=== PATIENT | female | born 1995 | race Caucasian/White ===

== ENCOUNTER 2017-04-20 11:35 | Outpatient (CLI) | payer BC, SELFPAY ==
[2017-04-20 11:49] VITALS: BMI 36.3
--- NOTE | 2017-04-21 12:28 | OB.TRI.NOTE ---
History of Present Illness Date of Service: 04/20/17 Was patient seen by the physician?: No Reason For Visit: VAGINAL BLEED Date of Service: 04/20/17 Final LOR: 08/31/17 Final LOR Source: US <20 weeks Gestational age: 21 Weeks and 1 Days Home Medications Medication Instructions Recorded Pnv No.122/Iron/Folic Acid 1 each PO DAILY 03/05/17 [ Multi Tablet] Sertraline HCl [Zoloft] 50 mg PO DAILY 03/05/17 Vitamin D3 4,000 units 04/20/17 Allergies acetaminophen [From Tylenol] Allergy (Verified 03/05/17 19:04) Swelling - Pertinent Past Medical History Pertinent Past Medical History: History of migraines with nausea. NST - FHR Rate Baby A NST Reactive:: Appropriate for gestational age Uterine Activity:: NO CONTRACTIONS NOTED Impression/Plan 21 week intrauterine with vaginal bleeding. ROM plus test negative. No contractions on the monitor. Positive heart tones noted. No vaginal bleeding noted at present. Problems with migraine this week and may be be cause of nausea. Will release to home with routine follow-up in the office.
== END 2017-04-20 12:45 | disposition home or self-care (01) ==
LOC: WPOUT 11:46 → WP 11:46
PROVIDERS: Family Provider Family Medicine; PCP Family Medicine; Visit Provider Obstetrics & Gynecology
DX: O46.92 Antepartum hemorrhage, unspecified, second trimester (principal); O99.352 Diseases of the nervous system complicating pregnancy, second trimester; G43.909 Migraine, unspecified, not intractable, without status migrainosus; Z3A.21 21 weeks gestation of pregnancy
CPT/HCPCS: 99218; G0378

== ENCOUNTER → 2017-05-24 14:35 | Outpatient (CLI) | payer BC, SELFPAY ==
[2017-05-24 14:55] LABS: Color, Urine Yellow (Yellow); Glucose, Dipstick Normal (Normal); Ketone-Dipstick Negative (Negative); Leukocyte Esterase-Dipstick 500 /ul (Negative); Nitrite-Dipstick Negative (Negative); Occult Blood-Urine 10 /ul (Negative); Protein-Dipstick Negative (Negative); Specific Gravity, Urine 1.005 (1.002-1.030); Urine Bilirubin Dipstick Negative (Negative); Urine Clarity Clear (Clear); Urine Urobilinogen Normal (Normal)
== END ==
PROVIDERS: Family Provider Family Medicine; PCP Family Medicine; Visit Provider Obstetrics & Gynecology
DX: O23.42 Unspecified infection of urinary tract in pregnancy, second trimester (principal); Z3A.00 Weeks of gestation of pregnancy not specified
CPT/HCPCS: 81002; 87086; 87088

== ENCOUNTER → 2017-06-04 14:58 | Outpatient (CLI) | payer BC, SELFPAY ==
[2017-06-04 16:10] LABS: Hematocrit 35.9 % (37-47); Hemoglobin 11.6 g/dl (12.0-15.0); Mean Corp Hgb Conc 32.3 g/gl (32-36); Mean Corpuscular Hgb 28.1 pg (27.0-32.0); Mean Corpuscular Volume 86.9 fL (81-99); Mean Platelet Vol. 10.7 fl (6.2-12.0); Platelet Count 269 K/mm3 (150-450); RBC Distribution Width CV 14.9 % (11.6-14.6); Red Blood Count 4.13 M/mm3 (4.2-5.4); White Blood Count 11.1 K/mm3 (4.4-11.0)
[2017-06-04 16:16] LABS: Scan Indicated on CBC? Y/N NO
[2017-06-04 17:16] LABS: Glucose Challenge Gest 1H 50g 116 mg/dL (70-140)
[2017-06-05 09:25] LABS: Ferritin 6 ng/mL (8-252); Iron 38 ug/dL (50-170); Iron Binding Capacity,Total 515 ug/dL (250-450)
== END ==
PROVIDERS: Family Provider Family Medicine; PCP Family Medicine; Visit Provider Obstetrics & Gynecology
DX: Z34.82 Encounter for supervision of other normal pregnancy, second trimester (principal)
CPT/HCPCS: 36415; 82728; 82950; 83540; 83550; 85027

== ENCOUNTER → 2017-07-25 13:19 | Outpatient (CLI) | payer BC, SELFPAY | PROVIDERS: Visit Provider Obstetrics & Gynecology | DX: R30.0 Dysuria (principal); R10.30 Lower abdominal pain, unspecified | CPT/HCPCS: 87086; 87088 ==

== ENCOUNTER → 2017-08-07 16:50 | Outpatient (CLI) | payer BC, SELFPAY ==
[2017-08-07 20:21] LABS: Group B Strep DNA By PCR Negative (Negative); Internal Control PASS; Probe Check PASS; Specimen Processing Control PASS
== END ==
PROVIDERS: Visit Provider Obstetrics & Gynecology
DX: Z36.85 Encounter for antenatal screening for Streptococcus B (principal)
CPT/HCPCS: 87077; 87081; 87653

== ENCOUNTER 2017-08-24 04:58 | Inpatient (IN) | payer BC, SELFPAY ==
[2017-08-24] VITALS (20 sets, daily range): BP systolic 113–137; BP diastolic 50–73; PULSE 71–116; RESP 16–20; TEMP 36.1–37; O2SAT 95–99; BMI 34.9
[2017-08-24] MEDS: Lactated Ringers 1,000 ML 999 ML IV (06:15)
[2017-08-24 06:24] LABS: Prothrombin Time (Protime)PT. 13.1 SECONDS (11.7-14.9)
[2017-08-24 06:25] LABS: Partial Thromboplast Time 27.2 Seconds (24.1-36.2)
[2017-08-24 06:36] LABS: Hematocrit 33.7 % (37-47); Hemoglobin 10.7 g/dl (12.0-15.0); Mean Corp Hgb Conc 31.8 g/gl (32-36); Mean Corpuscular Hgb 26.2 pg (27.0-32.0); Mean Corpuscular Volume 82.4 fL (81-99); Mean Platelet Vol. 10.9 fl (6.2-12.0); Platelet Count 242 K/mm3 (150-450); RBC Distribution Width CV 15.6 % (11.6-14.6); RBC Distribution Width SD 46.2 fl (35.1-43.9); Red Blood Count 4.09 M/mm3 (4.2-5.4); White Blood Count 9.7 K/mm3 (4.4-11.0)
[2017-08-24 06:38] LABS: Scan Indicated on CBC? Y/N NO
[2017-08-24] MEDS: Sodium Citrate/Citric Acid 30 ML UDC PO (07:18)
[2017-08-24] MEDS: Lactated Ringers 1,000 ML 150 ML IV (07:21)
[2017-08-24] MEDS: Oxytocin 30 units/NS 500 ml 30 UNITS/500 ML IV.SOLN 167 UNITS IV (08:23)
[2017-08-24] MEDS: Lactated Ringers 1,000 ML 100 ML IV ×3 (09:45→19:37)
--- NOTE | 2017-08-24 10:10 | NURSING ---
Normal sinus rhythm noted and strip printed
[2017-08-24] MEDS: Ondansetron ODT 4 MG Tablet PO (11:34)
--- NOTE | 2017-08-24 14:13 | OP.PN_ITS ---
- Problem List (1) 39 weeks gestation of Status: Acute (2) Previous section Status: Acute [id number]-[id number] PostOp Date of Procedure: 08/24/17 Primary Surgeon/Physician: Ifrah Bazan, shoe lining fitter: Moreno Callejas Pre-op Diagnosis: Repeat Elective Post-Op Diagnosis: Repeat Elective Surgery/Procedure Performed: Repeat low transverse Section Description of Surgical Findings:: normal tubes and ovaries bilaterally Estimated Blood Loss: 850 Specimens Removed: placenta Drain: Burr to straight drain Type of Anesthesia: Spinal - Admit VTE Documentation VTE Present on Admission: No VTE Mechan Device Prophylaxis: SCD's VTE Pharm Prophylaxis ordered?: No
--- NOTE | 2017-08-24 14:19 | OP.PCM_ITS ---
- Problem List (1) 39 weeks gestation of Status: Acute (2) Previous section Status: Acute Delivery Classification: Scheduled Final LOR: 08/31/17 Final LOR Source: US <20 weeks Gestational age: 40 Weeks and 6 Days Indications: 22 year old 2 para 1 with a history of prior section for macrosomia with arrest disorder presents for scheduled repeat section at term. Indications for : Repeat Elective Description of Procedure: Findings: normal tubes and ovaries bilaterally The patient was taken to the operating room and spinal analgesia was administered. She is placed in a dorsal supine position with left lateral tilt. The perineum and abdomen were prepped and draped in sterile fashion. And the spinal was found to be adequate. A Pfannenstiel incision was made using a scalpel and brought down to incise the subcutaneous tissue and rectus fascia at the midline. Subcutaneous tissue was bluntly dissected off the fascia laterally. The fascial incision was dissected laterally and cephalad using curved [place] scissors. The superior leaflet of the rectus fascia was grasped using Lupe clamps and bluntly dissected and sharply dissected from the underlying rectus muscle. In a similar fashion the inferior rectus fascia was dissected from the underlying muscle. The rectus muscles were bluntly at the midline. The peritoneum was identified and entered [sharply]. The bladder blade was placed into the abdomen and the vesicouterine peritoneal fold identified. The fold was incised and a bladder flap created. Bladder blade was then repositioned to the abdomen. A low transverse hysterotomy was made using the [Metzenbaum scissors] to level of the membranes. The hysterotomy was extended bluntly cephalad and caudad. The membranes were then ruptured revealing clear fluid. The head was elevated and brought to the level of the hysterotomy and the delivered revealing vigorous [ female] infant. The cord was doubly clamped and cut after 30 seconds. The infant was passed to awaiting [nursery personnel]. The placenta was [expressed ] from the uterus and appeared intact on inspection. The uterus was cleared of debris. The hysterotomy was then repaired using 0 Vicryl running lock suture. A second imbricating layer was also placed for additional hemostasis. The bladder blade was removed. The anterior cul-de-sac was cleared of debris. The peritoneum and rectus muscles were reapproximated using 2-0 Vicryl running suture. The rectus fascia was closed using 0 Vicryl running suture. The subcutaneous tissue was sponge irrigated and small capillary bleeding controlled using the Bovie device. The subcutaneous tissue was reapproximated using 2-0 Vicryl. The skin was closed using 4-0 Monocryl subcuticularly by the POULTRY OFFAL ICER under my supervision. This was followed by Cavilon and a Mepilex occlusive dressing was placed over the incision. The fundus was firm. The patient was then transferred to the recovery room without complication. Sponge, instrument, and needle counts were correct ?2. Amniotic Membrane Rupture Type: Artificial Amniotic Fluid Description: Clear Placenta Disposition: [facility] Specimen(s) sent to pathology: placenta Drain: Burr to straight drain Cord Entanglement: Around neck x 1, loose Nuchal Cord Compression: Without compression Cord Vessel Description: 3 Vessels Infant Gender: Female (1 minute): 8 (5 minute): 9 Delayed cord clamping: Yes Pre-op Antibiotic Given: Ancef 2 grams IV x1 Pt instructed on risks of surgery: Bleeding, Anesthesia Risks, Infection, Need for Future C-Sections, Injury to surrounding structure(s) including bowel and bladder Complications: - - Female 4068g - Admit VTE Documentation VTE Present on Admission: No VTE Mechan Device Prophylaxis: SCD's VTE Pharm Prophylaxis ordered?: No
--- NOTE | 2017-08-24 14:20 | DCINST_ITS ---
Discharge Diet: No Restrictions Discharge Activity: Return to Normal Activity, May not drive while taking narcotic pain medications., May Shower, May Take a Tub Bath May resume sexual activity in: 6 weeks Lifting Restrictions: 10 lb Call your doctor if your incision/area has: Continuous Slow Oozing, Sudden Increased Bleeding, Increased Pain/ Swelling, Increased Redness, Foul Smelling Discharge Call your doctor if you observe: Fever of 101 or Higher, Inability to urinate, Inability to have a bowel movement, Using more than one pad per hour, Shortness of breath, Chest pain, Calf discomfort, Uncontrolled pain Suture Line Care: Avoid Pulling/Pushing, Avoid Pinching/Bending Cleanse incision/area with: Soap & Water Additional Instructions: If you experience any of the following, contact your healthcare provider. * Bleeding that soaks a pad every hour for 2 hours * Fever 100.4 or higher * Unrelieved incision or abdominal pain * Swelling, redness, discharge or bleeding from your incision or episiotomy site * Your incision begins to separate * Problems urinating (including inability to urinate or burning while urinating) . * Visual changes * Severe headache * Flu-like symptoms * Pain or redness in one of both of your breasts * Pain, warmth, tenderness or swelling in your legs, especially the calf area * Frequent nausea and vomiting * Symptoms of depression or anxiety If you experience any of the following, call 911 or go to the nearest Emergency Room. * Chest pain * Problems breathing * Seizure activity * Partial or complete paralysis of a body part, slurred speech, weakness or drooping of the face, or a sudden inability to walk or hold your balance Allergies/Adverse Reactions: Allergies acetaminophen [From Tylenol] Allergy (Verified 03/05/17 19:04) Swelling Medications to take at Discharge Pnv No.122/Iron/Folic Acid [ Multi Tablet] 1 each PO DAILY 03/05/17 Sertraline HCl [Zoloft] 50 mg PO DAILY 03/05/17 Ibuprofen 600 mg PO TID PRN #30 tab 08/24/17 Oxycodone [Oxyir] 5 - 10 mg PO Q4H PRN PRN 3 Days #28 tab 08/24/17 Senna/Docusate Sodium [Senokot-S] 1 - 2 tab PO DAILY PRN #60 tab 08/24/17 The following prescriptions were given: Oxycodone [Oxyir] 5 - 10 mg PO Q4H PRN PRN 3 Days #28 tab PRN Reason: Mod-Severe Pain (-12/19) Senna/Docusate Sodium [Senokot-S] 1 - 2 tab PO DAILY PRN #60 tab PRN Reason: Constipation Ibuprofen 600 mg PO TID PRN #30 tab PRN Reason: Pain Follow-Up: Call to make an appointment with your doctor for an incision check in 1-2 weeks. You will also need a 6 week post- follow up appointment. Please Follow Up With: Ifrah Bazan MD When: 2 weeks for post-op check Primary Care Physician: Jean-Paul Clay [Primary Care Provider] -
[2017-08-24] MEDS: Ketorolac 30 MG/ML Syringe IV ×2 (14:44→21:18)
[2017-08-24] MEDS: 0.9% Saline Lock 10 ML Syringe IV (21:18)
[2017-08-25] VITALS (8 sets, daily range): BP systolic 112–139; BP diastolic 59–77; PULSE 63–100; RESP 14–18; TEMP 36.3–36.9; O2SAT 95–98
[2017-08-25] MEDS: 0.9% Saline Lock 10 ML Syringe IV ×2 (03:22→16:16)
[2017-08-25] MEDS: Ketorolac 30 MG/ML Syringe IV ×4 (03:22→21:54)
--- NOTE | 2017-08-25 04:07 | NURSING ---
pad changed @ 0313 with neha care provided
[2017-08-25] MEDS: Lactated Ringers 1,000 ML 100 ML IV (04:44)
[2017-08-25 05:39] LABS: Hematocrit 30.6 % (37-47); Hemoglobin 9.4 g/dl (12.0-15.0); Mean Corp Hgb Conc 30.7 g/gl (32-36); Mean Corpuscular Hgb 25.2 pg (27.0-32.0); Mean Platelet Vol. 10.2 fl (6.2-12.0); Platelet Count 212 K/mm3 (150-450); RBC Distribution Width CV 15.8 % (11.6-14.6); RBC Distribution Width SD 47.2 fl (35.1-43.9); Red Blood Count 3.73 M/mm3 (4.2-5.4); White Blood Count 11.1 K/mm3 (4.4-11.0)
[2017-08-25 05:43] LABS: Scan Indicated on CBC? Y/N NO
--- NOTE | 2017-08-25 07:24 | PCM.PN.OB ---
Patient Problems: Active and Suspected Problems 39 weeks gestation of (Acute) Previous section (Acute) Subjective: POD#1 Repeat C section. Doing well. Nursing. Baby is just sleeping on her at present, and hard to wake up at times. Has a 14 mo old at home. Pain control adequate. No concerns voiced. Objective: Lying in bed with baby to R side, baby sleeping. Ayoub with clear,michoacano colored urine. - Physical Exam General: Alert, Oriented x3, Cooperative, No apparent distress HEENT: Atraumatic Neck: Supple Abdomen: Soft - Fundus firm minimally tender c/w postop status, and inferior to umbilicus Skin: Incision - Mepilex dressing CDI. Neurological: Cranial nerves II-XII grossly intact Psych/Mental Status: Normal Affect Vital Signs Temp Pulse Resp BP Pulse Ox 97.3 F L 97 17 116/59 L 96 08/25/17 03:15 08/25/17 05:15 08/25/17 05:15 08/25/17 03:15 08/25/17 05:15 Oxygen Delivery Method Room Air Weight: 110.677 kg Body Mass Index (BMI) 34.9 Intake and Output for Last 24 Hours 08/23/17 08/24/1718 23:59 23:59 23:59 Intake Total 5140 / 5140 1455 / 1455 Output Total 1300 / 1300 950 / 950 Balance 3840 / 3840 505 / 505 Laboratory Tests Past 24 Hrs 08/25/17 05:15 WBC 11.1 H RBC 3.73 L Hgb 9.4 L Hct 30.6 L MCV 82.0 MCH 25.2 L MCHC 30.7 L RDW 15.8 H RDW Differential 47.2 H Plt Count 212 MPV 10.2 Medical Necessity - Tobacco Use Smoking Status: Never smoker Assessment/Plan All Active Problems 39 weeks gestation of (Acute) Previous section (Acute) POD#1 Repeat C/S Stable postop. Inc diet and activity as tolerated. Begin po meds. S/L IV for continued toradol today. D/C ayoub for voiding trial. Continue care.
--- NOTE | 2017-08-25 17:08 | CASEMGMT ---
Anna Marie was breast feeding her baby during our meeting. She denied any feelings of depression and denied any concerns or questions at this time. She reports having good support system. No issues at this time. REYNA Mendez
[2017-08-26 03:30] VITALS: BP 135/84; PULSE 88; RESP 16; TEMP 36.6
[2017-08-26] MEDS: 0.9% Saline Lock 10 ML Syringe IV (04:28)
[2017-08-26] MEDS: Ketorolac 30 MG/ML Syringe IV (04:28)
--- NOTE | 2017-08-26 07:52 | PCM.PN.OB ---
Patient Problems: Active and Suspected Problems 39 weeks gestation of (Acute) Previous section (Acute) Objective: POD#2 repeat C/S Doing well. would like to go home today. Asking about activities at home. Asking when she can go. [facility] but this [facility] as well as [facility] outpt pharmacy both closed today. Requesting RX be sent to [facility]. No other concerns voiced. Some nipple soreness with nursing but has her own cream to use. - Physical Exam General: Alert, Oriented x3, Cooperative, No apparent distress HEENT: Atraumatic Neck: Supple Abdomen: Soft - Fundus firm NT, inferior to umbilicus Skin: Incision - Mepilex dressing intact (advised her to remove in a few more days) Neurological: Cranial nerves II-XII grossly intact Psych/Mental Status: Normal Affect Vital Signs Temp Pulse Resp BP Pulse Ox 97.9 F 88 16 135/84 H 97 08/26/ 03:30 08/26/17 03:30 08/26/17 03:30 08/26/ 03:30 08/25/17 20:35 Oxygen Delivery Method Room Air Weight: 110.677 kg Body Mass Index (BMI) 34.9 Intake and Output for Last 24 Hours //18 /16/18 /17/18 23:59 23:59 23:59 Intake Total 5140 / 5140 1455 / 1455 Output Total 1300 / 1300 1850 / 1850 Balance 3840 / 3840 -395 / -395 Medical Necessity - Tobacco Use Smoking Status: Never smoker Assessment/Plan All Active Problems 39 weeks gestation of (Acute) Previous section (Acute) POD#2 Repeat C/S Stable postop. D/C home today. Rx sent through to [facility] due to other pharmacies she uses closed on Sunday, today. RTO in 2 wk for postop check as planned. Sooner appt prn.
--- NOTE | 2017-08-26 07:55 | PN.OBGYN_ITS ---
Patient Problems: Active and Suspected Problems 39 weeks gestation of (Acute) Previous section (Acute) Objective: POD#2 repeat C/S Doing well. would like to go home today. Asking about activities at home. Asking when she can go. [facility] but [facility] as well as [facility] outpt pharmacy both closed today. Requesting RX be sent to [facility]. No other concerns voiced. Some nipple soreness with nursing but has her own cream to use. - Physical Exam General: Alert, Oriented x3, Cooperative, No apparent distress HEENT: Atraumatic Neck: Supple Abdomen: Soft - Fundus firm NT, inferior to umbilicus Skin: Incision - Mepilex dressing intact (advised her to remove in a few more days) Neurological: Cranial nerves II-XII grossly intact Psych/Mental Status: Normal Affect Vital Signs Temp Pulse Resp BP Pulse Ox 97.9 F 88 16 135/84 H 97 08/26/ 03:30 08/26/17 03:30 08/26/17 03:30 08/26/ 03:30 08/25/17 20:35 Oxygen Delivery Method Room Air Weight: 110.677 kg Body Mass Index (BMI) 34.9 Intake and Output for Last 24 Hours //18 /16/18 /17/18 23:59 23:59 23:59 Intake Total 5140 / 5140 1455 / 1455 Output Total 1300 / 1300 1850 / 1850 Balance 3840 / 3840 -395 / -395 Medical Necessity - Tobacco Use Smoking Status: Never smoker Assessment/Plan All Active Problems 39 weeks gestation of (Acute) Previous section (Acute) POD#2 Repeat C/S Stable postop. D/C home today. Rx sent through to [facility] due to other pharmacies she uses closed on Sunday, today. RTO in 2 wk for postop check as planned. Sooner appt prn.
[2017-08-26] MEDS: Ibuprofen 600 MG Tablet PO (10:09)
[2017-08-26 10:12] VITALS: BP 131/81; PULSE 88; RESP 18; TEMP 36.7; O2SAT 98
--- NOTE | 2017-08-27 20:08 | DS.PCM_ITS ---
Discharge Date and Diagnosis Date of Admission: 08/24/17 - 39 wk prior C section. planned repeat. chronic anemic Date of Discharge: 08/26/17 - Same and acute blood loss anemia on chronic anemia Hospital Course and Treatment Operations: - - Repeat C section Summary of Care Provided: The patient is a 22 year old F presents at 39 wk EGA for repeat C section. Procedure performed on 08/24/17 rivas Female infant 4068g Ap 8/9. Procedure uncomplicated. course uneventful and patient requested discharge to home on POD#2. RTO in 2 wks as planned for postop check in office, prn sooner. Discharge Diet: No Restrictions Discharge Activity: Return to Normal Activity, May not drive while taking narcotic pain medications., May Shower, May Take a Tub Bath May resume sexual activity in: 6 weeks Call your doctor if your incision/area has: Continuous Slow Oozing, Sudden Increased Bleeding, Increased Pain/ Swelling, Increased Redness, Foul Smelling Discharge Call your doctor if you observe: Fever of 101 or Higher, Inability to urinate, Inability to have a bowel movement, Using more than one pad per hour, Shortness of breath, Chest pain, Calf discomfort, Uncontrolled pain Suture Line Care: Avoid Pulling/Pushing, Avoid Pinching/Bending Cleanse incision/area with: Soap & Water Home Medications: Medications to take at Discharge Pnv No.122/Iron/Folic Acid [ Multi Tablet] 1 each PO DAILY 03/05/17 Sertraline HCl [Zoloft] 50 mg PO DAILY 03/05/17 Ibuprofen 600 mg PO TID PRN #30 tab 08/24/17 Oxycodone [Oxyir] 5 - 10 mg PO Q4H PRN PRN 3 Days #28 tab 08/24/17 Senna/Docusate Sodium [Senokot-S] 1 - 2 tab PO DAILY PRN #60 tab 08/24/17 Oxycodone [Oxyir] 5 - 10 mg PO Q4H PRN PRN 7 Days #28 tablet 08/26/17 Following Prescrptions Were Given to Patient: Oxycodone [Oxyir] 5 - 10 mg PO Q4H PRN PRN 3 Days #28 tab PRN Reason: Mod-Severe Pain (4-10/10) Oxycodone [Oxyir] 5 - 10 mg PO Q4H PRN PRN 7 Days #28 tablet PRN Reason: Mod-Severe Pain (4-12/19) Senna/Docusate Sodium [Senokot-S] 1 - 2 tab PO DAILY PRN #60 tab PRN Reason: Constipation Ibuprofen 600 mg PO TID PRN #30 tab PRN Reason: Pain Primary Care Physician: Jean-Paul Clay [Primary Care Provider] - Please Follow Up With: Ifrah Bazan MD When: 2 weeks for post-op check Patient Instructions: Ibuprofen Oral tablet, After a , ( ) Medical Necessity - Tobacco Use Smoking Status: Never smoker Meaningful Use Info Meaningful Use Diagnoses (Choose all that apply): None applicable
== END 2017-08-26 11:20 | disposition home or self-care (01) | DRG 765 ==
PROVIDERS: Admitting Provider Obstetrics & Gynecology; Family Provider Family Medicine; PCP Family Medicine; Visit Provider Obstetrics & Gynecology
PROC: 10D00Z1 Extraction of Products of Conception, Low, Open Approach (ICD-10-PCS; CPT 59514; principal; 2017-08-24 07:15)
DX: O34.211 Maternal care for low transverse scar from previous cesarean delivery (principal); D62 Acute posthemorrhagic anemia; O99.02 Anemia complicating childbirth; O69.81X0 Labor and delivery complicated by cord around neck, without compression, not applicable or unspecified; Z3A.39 39 weeks gestation of pregnancy; Z37.0 Single live birth
CPT/HCPCS: 85027; 85610; 85730; 86850; 86900; 99218; J7120; A4216; G0378; J2405; J3490

== ENCOUNTER → 2018-10-30 14:07 | Outpatient (CLI) | payer BC, MEDICAID, SELFPAY ==
[2018-10-30 14:07] VITALS: BMI 36.3
[2018-11-01 14:30] LABS: HPV Reflexed? NOT INDICATED
== END ==
PROVIDERS: Visit Provider Obstetrics & Gynecology
DX: Z12.4 Encounter for screening for malignant neoplasm of cervix (principal)
CPT/HCPCS: 87624; 88175; G0145

== ENCOUNTER → 2019-07-23 12:13 | Outpatient (CLI) | payer BC, MEDICAID, SELFPAY ==
[2018-10-30 14:07] VITALS: BMI 36.3
[2019-07-23 12:54] LABS: Absolute Lymphocyte Count 1.93 X10^3/uL (0.83-4.51); Absolute Neutrophil Count 8.2 X10^3/uL (2.0-7.7); Basophil# 0.02 X10^3/uL; Basophil% 0.2 % (0-1); Eosinophil# 0.05 X10^3/uL; Eosinophils% 0.5 % (0-5); Hemoglobin 13.5 g/dL (12.0-15.0); Lymphocyte # 1.93 X10^3/ul (4.0); Lymphocyte % 17.9 % (19-41); Mean Corp Hgb Conc 31.4 g/dL (32-36); Mean Corpuscular Hgb 26.4 pg (27.0-32.0); Mean Corpuscular Volume 84.1 fL (81-99); Mean Platelet Vol. 10.5 fl (6.2-12.0); Monocyte# 0.57 X10^3/uL; Monocyte% 5.3 % (0-10); NRBC Flagged by Analyzer 0 % (0-5); Neutrophil # 8.18 X10^3/uL (2.7-7.7); Neutrophil % 75.8 % (47-70); Platelet Count 306 K/mm3 (150-450); RBC Distribution Width CV 13.4 % (11.6-14.6); RBC Distribution Width SD 41.5 fl (35.1-43.9); Red Blood Count 5.11 M/mm3 (4.2-5.4); White Blood Count 10.8 K/mm3 (4.4-11.0)
[2019-07-23 12:55] LABS: Color, Urine Yellow (Yellow); Glucose, Dipstick Normal (Normal); Ketone-Dipstick 15 mg/dl (Negative); Leukocyte Esterase-Dipstick 500 /ul (Negative); Nitrite-Dipstick Negative (Negative); Occult Blood-Urine 10 /ul (Negative); Protein-Dipstick 30 mg/dl (Negative); Specific Gravity, Urine 1.025 (1.002-1.030); Urine Bilirubin Dipstick Negative (Negative); Urine Clarity Sl. Cloudy (Clear); Urine Urobilinogen Normal (Normal)
[2019-07-23 13:11] LABS: Amphetamine Urine VISTA NEGATIVE (<1000 ng/mL); Barbiturate Urine VISTA NEGATIVE (< 200 ng/mL); Benzodiazepine Urine VISTA NEGATIVE (< 200 ng/mL); Cocaine Urine VISTA NEGATIVE (< 300 ng/mL); Ecstacy Urine VISTA NEGATIVE (< 500 ng/mL); Methadone Urine VISTA NEGATIVE (< 300 ng/mL); PCP Urine VISTA NEGATIVE (< 25 ng/mL); THC Urine VISTA NEGATIVE (< 50 ng/mL); Vista UDS pH Range 5
[2019-07-23 13:32] LABS: Thyroid Stim Hormone (TSH) 0.33 uIU/mL (0.358-3.74)
[2019-07-23 14:00] LABS: HIV - WCH Non-Reactive (Nonreactive); Hepatitis B Surface Antigen Non-Reactive (Nonreactive); Hepatitis C Antibody Non-Reactive (Nonreactive); Rubella IgG 15.6 IU/mL
[2019-07-23 15:14] LABS: Chlamydia Trachomatis by PCR Negative (Negative); Neisserai gonorrhoeae by PCR Negative (Negative); Probe Check PASS; Sample Adequacy Control PASS; Specimen Processing Control PASS
[2019-07-24 02:31] LABS: Prenatal RPR NONREACTIVE (NONREACTIVE)
== END ==
PROVIDERS: Referring Provider Obstetrics & Gynecology; Visit Provider Obstetrics & Gynecology
DX: Z34.81 Encounter for supervision of other normal pregnancy, first trimester (principal); R31.9 Hematuria, unspecified
CPT/HCPCS: 80307; 81002; 84443; 85025; 86703; 86762; 86803; 87086; 87088; 87340; 87491; 87591

== ENCOUNTER → 2019-09-04 18:27 | Outpatient (CLI) | payer BC, MEDICAID, SELFPAY ==
[2018-10-30 14:07] VITALS: BMI 36.3
== END ==
PROVIDERS: Referring Provider Obstetrics & Gynecology; Visit Provider Obstetrics & Gynecology
DX: Z34.82 Encounter for supervision of other normal pregnancy, second trimester (principal); R30.0 Dysuria
CPT/HCPCS: 87086; 87088

== ENCOUNTER → 2019-12-03 09:14 | Outpatient (CLI) | payer BC, MEDICAID, SELFPAY ==
[2018-10-30 14:07] VITALS: BMI 36.3
[2019-12-03 10:59] LABS: Hematocrit 37.2 % (37-47); Hemoglobin 11.7 g/dL (12.0-15.0); Mean Corp Hgb Conc 31.5 g/dL (32-36); Mean Corpuscular Hgb 27.7 pg (27.0-32.0); Mean Corpuscular Volume 88.2 fL (81-99); Mean Platelet Vol. 10.8 fl (6.2-12.0); Platelet Count 267 K/mm3 (150-450); RBC Distribution Width CV 14.8 % (11.6-14.6); RBC Distribution Width SD 47.4 fl (35.1-43.9); Red Blood Count 4.22 M/mm3 (4.2-5.4); White Blood Count 10.4 K/mm3 (4.4-11.0)
[2019-12-03 11:26] LABS: Glucose Challenge Gest 1H 50g 159 mg/dL (70-140)
[2019-12-03 14:00] LABS: Ferritin 10 ng/mL (8-252)
== END ==
PROVIDERS: Visit Provider Obstetrics & Gynecology
DX: Z34.83 Encounter for supervision of other normal pregnancy, third trimester (principal); E61.1 Iron deficiency
CPT/HCPCS: 36415; 82728; 82950; 85027

== ENCOUNTER 2019-12-09 15:50 | Outpatient (CLI) | payer BC, MEDICAID, SELFPAY ==
[2018-10-30 14:07] VITALS: BMI 36.3
[2019-12-09 16:19] VITALS: BMI 39.4
[2019-12-09 16:33] VITALS: BP 128/74; PULSE 96; TEMP 36.7; O2SAT 98
[2019-12-09 16:43] LABS: Mucous, Urine 0 SEEN /hpf (<or=2+)
[2019-12-09 17:33] LABS: Color, Urine Yellow (Yellow); Glucose, Dipstick Normal (Normal); Ketone-Dipstick 5 mg/dl (Negative); Leukocyte Esterase-Dipstick 500 /ul (Negative); Nitrite-Dipstick Negative (Negative); Occult Blood-Urine 10 /ul (Negative); Protein-Dipstick 15 mg/dl (Negative); Urine Bilirubin Dipstick Negative (Negative); Urine Clarity Cloudy (Clear); Urine Urobilinogen Normal (Normal)
[2019-12-09 18:19] LABS: Bacteria 2+ /hpf (None Seen); Calcium Oxalate Crystals Ur 2+ /hpf (<or=2+); Squamous Epithelial Cells - UA 10-25 SEEN /hpf (5-10); White Blood Cells 25-50 SEEN /hpf (0-5)
[2019-12-09 18:20] LABS: Red Blood Cells-Urine 0-5 SEEN /hpf (0-5)
[2019-12-09] MEDS: Nitrofurantoin Macrocrystals 100 MG Capsule PO (18:49)
--- NOTE | 2019-12-11 02:27 | OB.TRI.NOTE ---
- Problem List (1) 28 weeks gestation of Status: Acute (2) Acute cystitis Status: Acute Qualifiers: Hematuria presence: with hematuria Qualified Code(s): N30.01 - Acute cystitis with hematuria History of Present Illness Date of Service: 12/09/19 Was patient seen by the physician?: No Reason For Visit: DEHYDRATION Final LOR: 02/21/20 Final LOR Source: US <20 weeks Gestational age: 29 Weeks and 3 Days History of Present Illness: 24yo @ 29 3/7wga with c/o painfulness and decreased urination. She called into office with the above complaints and was advised to go to [facility] for evaluation. Allergies acetaminophen [From Tylenol] Allergy (Verified 03/05/17 19:04) Swelling - Pertinent Past Medical History Surgical History: Past Surgical History (Last Updated 12/11/19 @ 02:[address] Ifrah Ramos MD) Previous section Laboratory Studies: Laboratory Tests 12/09/19 Range/Units 16:20 Urine Color Yellow (Yellow) Urine Clarity Cloudy (Clear) Urine pH 6.0 (5.0 - 8.0) Ur Specific [place] 1.020 (1.002-1.030) Urine Protein 15 H (Negative) mg/dl Urine Glucose (UA) Normal (Normal) mg/dl Urine Ketones 5 H (Negative) mg/dl Urine Occult Blood 10 H (Negative) /ul Urine Nitrite Negative (Negative) Urine Bilirubin Negative (Negative) mg/dL Urine Urobilinogen Normal (Normal) mg/dl Ur Leukocyte Esterase 500 H (Negative) /ul Urine RBC 0-5 SEEN (0-5) /hpf Urine WBC 25-50 SEEN (0-5) /hpf Ur Squamous Epith Cells 10-25 SEEN (5-10) /hpf Calcium Oxalate Crystal 2+ (<or=2+) /hpf Urine Bacteria 2+ (None Seen) /hpf Urine Mucus 0 SEEN (<or=2+) /hpf Physical Exam Vitals: Vital Signs Temp Pulse BP Pulse Ox 98.1 F 96 128/74 H 98 12/09/19 16:33 12/09/19 16:33 12/09/19 16:33 12/09/19 16:33 NST - FHR Rate Baby A Baseline: 140 Variability:: Moderate Accelerations:: 10 x 10 Decelerations:: Variable NST Reactive:: Yes, Appropriate for gestational age Uterine Activity:: none Impression/Plan 24yo @ 29 3/7wga with acute cystitis Strip and plan of care reviewed by Dr. Murphy on date of encounter. No evidence of labor. Patient given Macrobid po x 1 and advised to call office in am to request completion of prescription. Maternal and statuses overall reassuring
== END 2019-12-09 19:00 | disposition home or self-care (01) ==
LOC: WPOUT 16:32 → WP 16:32
PROVIDERS: Referring Provider Obstetrics & Gynecology; Visit Provider Obstetrics & Gynecology
DX: O99.283 Endocrine, nutritional and metabolic diseases complicating pregnancy, third trimester (principal); O23.13 Infections of bladder in pregnancy, third trimester; E86.0 Dehydration; Z3A.29 29 weeks gestation of pregnancy
CPT/HCPCS: 81001; 87086; 87088

== ENCOUNTER → 2019-12-10 06:57 | Outpatient (CLI) | payer BC, MEDICAID, SELFPAY ==
[2018-10-30 14:07] VITALS: BMI 36.3
[2019-12-09 16:19] VITALS: BMI 39.4
[2019-12-10 07:26] LABS: Glucose GTT-Gestation. Fasting 82 mg/dL (<105)
[2019-12-10 08:37] LABS: Glucose GTT-Gestational 1 Hr 154 mg/dL (<190)
[2019-12-10 10:24] LABS: Glucose GTT-Gestational 2 Hr 100 mg/dL (<165)
[2019-12-10 11:00] LABS: Glucose GTT-Gestational 3 Hr 81 L (<145)
== END ==
PROVIDERS: Referring Provider Obstetrics & Gynecology; Visit Provider Obstetrics & Gynecology
DX: O24.912 Unspecified diabetes mellitus in pregnancy, second trimester (principal); Z3A.00 Weeks of gestation of pregnancy not specified
CPT/HCPCS: 36415; 82951; 82952

== ENCOUNTER → 2019-12-15 11:51 | Outpatient (CLI) | payer BC, MEDICAID, SELFPAY ==
[2019-12-09 16:19] VITALS: BMI 39.4
[2019-12-15 11:54] LABS: Mucous, Urine 0 SEEN /hpf (<or=2+)
[2019-12-15 13:17] LABS: Hematocrit 37.1 % (37-47); Hemoglobin 12.6 g/dL (12.0-15.0); Mean Corpuscular Hgb 30.7 pg (27.0-32.0); Mean Corpuscular Volume 90.3 fL (81-99); Mean Platelet Vol. 10.5 fl (6.2-12.0); Platelet Count 218 K/mm3 (150-450); RBC Distribution Width CV 15.8 % (11.6-14.6); RBC Distribution Width SD 49.5 fl (35.1-43.9); Red Blood Count 4.11 M/mm3 (4.2-5.4)
[2019-12-15 13:26] LABS: Color, Urine Yellow (Yellow); Glucose, Dipstick Normal (Normal); Ketone-Dipstick Negative (Negative); Leukocyte Esterase-Dipstick 500 /ul (Negative); Nitrite-Dipstick Negative (Negative); Occult Blood-Urine 10 /ul (Negative); Protein-Dipstick 30 mg/dl (Negative); Urine Bilirubin Dipstick Negative (Negative); Urine Clarity Cloudy (Clear); Urine Urobilinogen Normal (Normal)
[2019-12-15 13:33] LABS: ALB/GLOB Ratio 0.5 RATIO (0.9-2.4); AST(SGOT) 9 U/L (15-37); Alanine Aminotransfer ALT/SGPT 13 U/L (13-56); Albumin, Serum 2.6 g/dL (3.2-5.0); Alkaline Phosphatase 127 U/L (45-117); Anion Gap 7 (5-15); BUN 5 mg/dL (7-18); BUN/Creat Ratio 8.5 RATIO (10-20); Calcium,Total 8.5 mg/dL (8.5-10.1); Chloride 108 mmol/L (98-107); Creatinine, Serum 0.59 mg/dL (0.55-1.02); EST Glomerular Filtration Rate 136 mL/min (>60); Est Glom Filt Rate - Afr Amer 164 mL/min (>60); Globulin 4.9 g/dL (2.2-4.2); Glucose 90 mg/dL (74-106); LDH 122 U/L (84-246); Potassium 3.9 mmol/L (3.5-5.1); Protein, Total 7.5 g/dL (6.4-8.2); Sodium Level 139 mmol/L (136-145)
[2019-12-15 13:37] LABS: Protein, Urine (Random) 36.6 mg/dL (<11.9); Protein:Creat Ratio 220 mg/g CRE (0-200)
[2019-12-15 13:46] LABS: Red Blood Cells-Urine 0-5 SEEN /hpf (0-5); Squamous Epithelial Cells - UA 25-50 SEEN /hpf (5-10); White Blood Cells >100 SEEN /hpf (0-5)
[2019-12-15 13:47] LABS: Bacteria 3+ /hpf (None Seen)
== END ==
PROVIDERS: Visit Provider Obstetrics & Gynecology
DX: Z34.83 Encounter for supervision of other normal pregnancy, third trimester (principal); G43.109 Migraine with aura, not intractable, without status migrainosus
CPT/HCPCS: 36415; 80053; 81001; 82570; 83615; 84156; 85027; 87086; 87088

== ENCOUNTER → 2020-01-28 10:53 | Outpatient (CLI) | payer BC, MEDICAID, SELFPAY | PROVIDERS: Visit Provider Obstetrics & Gynecology | DX: Z36.85 Encounter for antenatal screening for Streptococcus B (principal) | CPT/HCPCS: 87081 ==

== ENCOUNTER → 2020-02-02 09:21 | Outpatient (CLI) | payer BC, MEDICAID, SELFPAY ==
--- NOTE | 2020-02-02 09:24 | US_ITS ---
INDICATION: gestational diabetes EXAMINATION: Ultrasound US Biophysical Profile W/O Nonst TECHNIQUE: Transabdominal pelvic ultrasound was performed. COMPARISON: None. LMP: Unknown. Beta-hCG: Unknown. Provided EGA: None. FINDINGS: INTRAUTERINE GESTATION(s): Single. ESTIMATED GESTATIONAL AGE: 37 weeks 2 days ESTIMATED DUE DATE (LOR): 02/21/2020 HEART MOTION is 127 bpm. AMNIOTIC FLUID INDEX (JESSENIA): 22.95 this is within the upper limits of normal. BIOPHYSICAL PROFILE (BPP): 10/17 -- Breathin/2. -- Movement: 2/2. -- Tone: 2/2. --JESSENIA: 2/2. PRESENTATION: Cephalic PLACENTA: Anterior. There is no placenta previa or abruption. CERVIX: The cervix is closed. MATERNAL OVARIES: No adnexal masses. FREE FLUID: None. US/Biophysical Prof W/O Non Stres IMPRESSION: Single live intrauterine of 37 weeks 2 days No acute abnormality. Electronically Signed: Deshawn Quintanilla, at 15:20 EST Tel , Service support ,
== END ==
PROVIDERS: Referring Provider Obstetrics & Gynecology; Visit Provider Obstetrics & Gynecology
DX: O24.410 Gestational diabetes mellitus in pregnancy, diet controlled (principal); Z3A.00 Weeks of gestation of pregnancy not specified
CPT/HCPCS: 76819

== ENCOUNTER → 2020-02-11 10:24 | Outpatient (CLI) | payer BC, MEDICAID, SELFPAY | PROVIDERS: Referring Provider Obstetrics & Gynecology; Visit Provider Obstetrics & Gynecology | DX: Z03.818 Encounter for observation for suspected exposure to other biological agents ruled out (principal) | CPT/HCPCS: 87635; C9803; U0003 ==

== ENCOUNTER 2020-02-13 18:15 | Outpatient (CLI) | payer BC, MEDICAID, SELFPAY ==
[2020-02-13 18:39] VITALS: BMI 40.8
[2020-02-13 19:05] VITALS: BP 132/76; PULSE 96; TEMP 36.8
--- NOTE | 2020-02-19 22:13 | OB.TRI.NOTE ---
History of Present Illness Date of Service: 02/13/20 Was patient seen by the physician?: No Reason For Visit: DECREASED MOVEMENT Date of Service: 02/13/20 Final LOR: 02/21/20 Final LOR Source: US <20 weeks Gestational age: 39 Weeks and 5 Days History of Present Illness: Patient arrives with decreased movement. Allergies acetaminophen [From Tylenol] Allergy (Verified 02/16/20 05:17) Swelling - Pertinent Past Medical History Medical History: Past Medical History (Last Updated 02/16/20 @ 08:[address] Ifrah Ramos MD) Depression Migraines Surgical History: Past Surgical History (Last Updated 02/16/20 @ 08:[address] Ifrah Ramos MD) Previous section 06/2016, 08/2017 Physical Exam Vitals: Vital Signs Temp Pulse BP 98.3 F 96 132/76 H 02/13/20 19:05 02/13/20 19:05 02/13/20 19:05 NST - FHR Rate Baby A Baseline: 120 Variability:: Moderate Accelerations:: 15 x 15 Decelerations:: None NST Reactive:: Yes Uterine Activity:: Few contractions Impression/Plan Patient arrives with decreased movement. With reactive NST, reassuring. Okay to discharge home.
== END 2020-02-13 19:15 | disposition home or self-care (01) ==
LOC: WPOUT 18:23 → WP 18:37
PROVIDERS: Visit Provider Obstetrics & Gynecology
DX: O36.8130 Decreased fetal movements, third trimester, not applicable or unspecified (principal); Z3A.39 39 weeks gestation of pregnancy
CPT/HCPCS: 59025; 59050; 99218; G0378

== ENCOUNTER 2020-02-16 05:00 | Inpatient (IN) | payer BC, MEDICAID, SELFPAY ==
[2018-10-30 14:07] VITALS: BMI 36.3
[2020-02-16] VITALS (23 sets, daily range): BP systolic 96–129; BP diastolic 33–79; PULSE 70–98; RESP 16–18; TEMP 35.7–37; O2SAT 95–99; BMI 40.1
[2020-02-16] MEDS: Lactated Ringers 1,000 ML 999 ML IV (05:20)
[2020-02-16 05:45] LABS: Absolute Neutrophil Count 6.6 X10^3/uL (2.0-7.7); Basophil# 0.03 X10^3/uL; Basophil% 0.3 % (0-1); Hematocrit 38.2 % (37-47); Hemoglobin 12.1 g/dL (12.0-15.0); Lymphocyte % 26.4 % (19-41); Mean Corp Hgb Conc 31.7 g/dL (32-36); Mean Corpuscular Hgb 27.6 pg (27.0-32.0); Mean Platelet Vol. 10.5 fl (6.2-12.0); Monocyte# 0.72 X10^3/uL; NRBC Flagged by Analyzer 0 % (0-5); Neutrophil # 6.64 X10^3/uL (2.7-7.7); Neutrophil % 64.8 % (47-70); Platelet Count 237 K/mm3 (150-450); RBC Distribution Width CV 15.2 % (11.6-14.6); RBC Distribution Width SD 48.6 fl (35.1-43.9); Red Blood Count 4.39 M/mm3 (4.2-5.4); White Blood Count 10.2 K/mm3 (4.4-11.0)
[2020-02-16 06:10] LABS: Bedside Glucose 89 mg/dL (70-110)
[2020-02-16] MEDS: Lactated Ringers 1,000 ML 150 ML IV (06:31)
[2020-02-16] MEDS: Sodium Citrate/Citric Acid 30 ML UDC PO (07:13)
[2020-02-16] MEDS: Cefazolin 2 GM in 0.9% Normal Saline 100 ML IV (07:21)
--- NOTE | 2020-02-16 08:34 | HP.PCM_ITS ---
- Problem List (1) 39 weeks gestation of Status: Acute History Date of Admission: 08/24/17 - 39 wk prior C section. planned repeat. chronic anemic Final LOR: 02/21/20 Final LOR Source: US <20 weeks Gestational age: 39 Weeks and 2 Days History of this : This is a 24 year-old, G [3], P [2], at 39 2/7 weeks gestational age presenting for scheduled repeat section. Medical History: Medical History (Last Updated 02/16/20 @ 08:[address] Ifrah Ramos MD) Depression F32.9 Migraines G43.909 Surgical History: Surgical History (Last Updated 02/16/20 @ 08:[address] Ifrah Ramos MD) Previous section Z98.891 06/2016, 08/2017 Allergies acetaminophen [From Tylenol] Allergy (Verified 02/16/20 05:17) Swelling Home Medications: Home Medications No122/Iron/Folic Acid [ Multi Tablet] 1 each PO DAILY 03/05/17 Citalopram [Celexa] 20 mg PO DAILY 02/13/20 Ferrous Sulfate 325 po.syringe PO DAILY 02/16/20 Smoking Status: Never smoker Alcohol: None Substance Use Type: Anxiety Medications Number of Fetus(es): 1 History Past Pregnancies: Past Pregnancies Delivery Date Name GA/ Weeks Outcome Route Wt Infant Sex Labor Length Anesthesia Delivery Location Provider FOB 06/2016 Adalynn 42 Arrest of dilation at 4-5cm [id number] F 14 Epidural [place] [facility] 08/24/17 Jamesalynn 39 Living Rpt [id number] F 0 Spinal [facility] Tracey Ramos Labs: Mom's Labs & Results 02/16/20 02/16/20 02/16/20 05:30 05:30 05:54 WBC 10.2 RBC 4.39 Hgb 12.1 Hct 38.2 MCV 87.0 MCH 27.6 MCHC 31.7 L RDW Std Deviation 48.6 H RDW Coeff of Yannick 15.2 H Plt Count 237 MPV 10.5 Immature Gran % (Auto) 0.500 Neut % (Auto) 64.8 Lymph % (Auto) 26.4 [place] % (Auto) 7.0 Eos % (Auto) 1.0 Baso % (Auto) 0.3 Absolute Neuts (auto) 6.6 Absolute Lymphs (auto) 2.70 Nucleated RBC % 0 POC Glucose 89 Blood Type O POSITIVE Antibody Screen NEGATIVE Course Did the patient receive Yes care? Labs Blood Type: O RH: POSITIVE RPR/VDRL/Syphilis Nonreactive Rubella status Immune HbSAg Negative Date Done: 07/23/19 Chlamydia Negative Gonorrhea Negative HIV/AIDS Non-Reactive Group B Strep: Negative Current Obstetrical History Gestational Diabetes Yes Incompetent Cervix No Infertility No IUGR No Macrosomia No Hypertension/Pre-eclampsia No Placenta Previa/Abruption No PTL/PROM No Uterine anomaly No Oligohydramnios No Polyhydramnios Yes Multiple gestation No Past Medical History Neurologic/Seizure disorder/ Yes: migraines Migraines Psychiatric disorders Yes: anx, dep Major trauma No Abnormal PAP smear No Sleep apnea No Mammogram in the last 2 years No Social History Marital Status: SINGLE Alleged father Pato Mcleod Smoking No Smoking Status Never smoker Substance Use Type Anxiety Medications What date/time did you last Celexa, last use 02/14 use any of the above? Expected Delivery Method: Spontaneous Vaginal Number of Visits: 14 Physical Exam Vitals: Vital Signs Temp Pulse Resp BP Pulse Ox 97.8 F 89 16 129/79 H 98 02/16/20 06:03 02/16/20 06:03 02/16/20 06:03 02/16/20 06:03 02/16/20 06:03 General: Alert, Oriented x3, Cooperative, No apparent distress HEENT: Atraumatic, Normocephalic Cardiovascular: Regular rate, Regular Rhythm, Normal S1, Normal S2 Lungs: Clear to auscultation, Normal air movement Abdomen: Soft, Non Tender, Non-Distended, Gravid Extremities:: No edema Neurological: Neuro grossly intact FOOD ADVISER: Normal external genitalia Estimated gestational size: Appropriate for gestational size Presentation: Cephalic Assessment/Plan All Active Problems (Last Updated 02/16/20 @ 08:[address] Ifrah Ramos MD) 39 weeks gestation of (Acute) Previous section (Acute) 28 weeks gestation of (Acute) Acute cystitis (Acute) This is a 24 year-old, G [3], P [2], at 39 2/7 weeks gestational age. -Proceed with scheduled repeat section. No tubal planned.
--- NOTE | 2020-02-16 08:41 | OP.PCM_ITS ---
Problem List (1) 39 weeks gestation of Status: Acute Report of Operation Description of Surgical Findings:: Normal appearing tubes, ovaries bilaterally. Normal appendix. Few filmy adhesions of the left tube. No significant intra-abdominal adhesions. weight 4280g Anesthesiologist: Cuauhtemoc Alves Delivery Classification: Scheduled Final LOR: 02/21/20 Final LOR Source: US <20 weeks Gestational age: 39 Weeks and 2 Days mexican food cook: Josefa Davis Type of Anesthesia:: Spinal Date of Procedure: 02/16/20 Pre-Operative Diagnosis: 39 2/7wga. Polyhydramnios. Gestational diabetes Post-Operative Diagnosis: 39 2/7wga. Polydramnios. Gestational diabetes Indications: 24yo @ 39 2/7wga with hx 2 prior sections presents for scheduled repeat section. Procedural r/b/i/a reviewed. Patient desired to proceed. Indications for : Repeat Elective Description of Procedure: The patient was taken to the operating room and spinal analgesia was administered. She is placed in a dorsal supine position with left lateral tilt and the abdominal tissue retraction system was appled. A ayoub catheter was placed. The abdomen was prepped and draped in sterile fashion. The spinal was found to be adequate. A Pfannenstiel incision was made using a scalpel and brought down to incise the subcutaneous tissue and rectus fascia at the midline. Subcutaneous tissue was bluntly dissected off the fascia laterally. The fascial incision was dissected laterally and cephalad using curved Reno scissors. The superior leaflet of the rectus fascia was grasped using Lupe clamps and bluntly dissected and sharply dissected from the underlying rectus muscle. In a similar fashion the inferior rectus fascia was dissected from the underlying muscle. The rectus muscles were bluntly at the midline. The peritoneum was identified and entered [sharply]. The Dequan-O self containing retractor was placed. The vesicouterine peritoneal fold identified. The fold was incised and a bladder flap created. A low transverse hysterotomy was made using the [Metzenbaum scissors] to level of the membranes. The hysterotomy was extended bluntly cephalad and caudad. The membranes were then ruptured revealing clear fluid. The head was elevated and brought to the level of the hysterotomy and the delivered revealing vigorous [male] infant. The cord was doubly clamped and cut after 30 to 60 seconds. The infant was passed to awaiting [nursery personnel]. The placenta was [expressed] from the uterus and appeared intact on inspection. The uterus was cleared of debris. The hysterotomy was then repaired using 0 Vicryl running lock suture. A second imbricating layer. An additional mattress suture was placed at the midline of the hysterotomy repair with hemostasis then attained. The bladder blade was removed. The Dequan-O was removed. The paracolic gutters and anterior cul-de-sac was cleared of debris. The peritoneum and rectus muscles were reapproximated using 2-0 Vicryl running suture. The rectus fascia was closed using 0 Stratafix running suture. The subcutaneous tissue was reapproximated using 2-0 Vicryl. The skin was closed using 4-0 Monocryl subcuticularly by the ARMATURE TESTER under my supervision. A Mepilex occlusive dressing was placed over the incision. The fundus was firm. The patient was then transferred to the recovery room without complication. Sponge, instrument, and needle counts were correct ?2. Amniotic Membrane Rupture Type: Spontaneous Amniotic Fluid Description: Clear Placenta Disposition: [facility] Drain: Ayoub to straight drain Cord Entanglement: None Nuchal Cord Compression: Without compression Cord Vessel Description: 3 Vessels Esitmated Blood Loss (ml): 500 ml Gender: Male (1 minute): 9 (5 minute): 9 Delayed cord clamping: Yes Antibiotic Given: Ancef 2 grams IV x1 Pt instructed on risks of surgery: Bleeding, Anesthesia Risks, Infection, Injury to surrounding structure(s) including bowel and bladder Complications: None - Admit VTE Documentation VTE Present on Admission: No VTE Mechan Device Prophylaxis: SCD's VTE Pharm Prophylaxis ordered?: No
[2020-02-16] MEDS: Oxytocin 30 units/NS 500 ml 30 UNITS/500 ML IV.SOLN 167 UNITS IV (09:10)
[2020-02-16 10:10] LABS: Bedside Glucose 113 mg/dL (70-110)
--- NOTE | 2020-02-16 11:15 | NURSING ---
this is IV intake from OR according to dr camacho
[2020-02-16] MEDS: Lactated Ringers 1,000 ML 100 ML IV (13:10)
[2020-02-16] MEDS: Citalopram 20 MG Tablet PO (13:17)
[2020-02-16] MEDS: Prenatal Vits Tablet 1 TABLET PO (13:17)
[2020-02-16] MEDS: Heparin Injection (Vial) 5,000 UNIT/ML VIAL 5000 UNIT SC ×2 (14:12→21:11)
[2020-02-16] MEDS: Ketorolac 30 MG/ML Syringe IV ×2 (16:38→21:09)
[2020-02-16] MEDS: 0.9% Saline Lock 10 ML Syringe IV ×2 (16:39→21:11)
[2020-02-17 01:07] VITALS: BP 110/57; PULSE 86; RESP 14; TEMP 36.7; O2SAT 97
[2020-02-17 01:25] VITALS: PULSE 78; RESP 15; O2SAT 97
--- NOTE | 2020-02-17 02:16 | PN.OBGYN_ITS ---
Patient Problems: Active and Suspected Problems (Last Updated 02/16/20 @ 08:[address] Ifrah Ramos MD) 39 weeks gestation of (Acute) Subjective: POD#1 Pain controlled. Lochia minimal. - Physical Exam Vitals/I&O's: Vital Signs Temp Pulse Resp BP Pulse Ox 98.1 F 78 15 110/57 L 97 02/17/20 01:07 02/17/20 01:25 02/17/20 01:25 02/17/20 01:07 02/17/20 01:25 Oxygen Delivery Method Room Air Weight: 123.377 kg Body Mass Index (BMI) 40.1 Intake and Output for Last 24 Hours 02/15/20 02/16/20 02/17/20 23:59 23:59 23:59 Intake Total 2810.83 / 2810.83 Output Total 1200 / 1200 Balance 1610.83 / 1610.83 General: Alert, Oriented x3 HEENT: Atraumatic, Normocephalic Lungs: Normal air movement Cardiovascular: Regular rate - mildly tender, uterus 2 cm below umbilicus. dressing c/d Abdomen: Soft - mildly tender, uterus 2 cm below umbilicus. dressing c/d Extremities: No edema, Edema - trace Neurological: Cranial nerves II-XII grossly intact, Neuro grossly intact Psych/Mental Status: Normal Affect Laboratory Results 02/16/20 05:30: WBC 10.2, RBC 4.39, Hgb 12.1, Hct 38.2, MCV 87.0, MCH 27.6, MCHC 31.7 L, RDW Std Deviation 48.6 H, RDW Coeff of Yannick 15.2 H, Plt Count 237, MPV 10.5, Immature Gran % (Auto) 0.500, Neut % (Auto) 64.8, Lymph % (Auto) 26.4, Marshall % (Auto) 7.0, Eos % (Auto) 1.0, Baso % (Auto) 0.3, Absolute Neuts (auto) 6.6, Absolute Lymphs (auto) 2.70, Nucleated RBC % 0 02/16/20 05:30: Blood Type O POSITIVE, Antibody Screen NEGATIVE 02/16/20 05:54: POC Glucose 89 02/16/20 09:55: POC Glucose 113 H Current Medications Bisacodyl (Bisacodyl 10 Mg Suppository) 10 mg RECTAL UD PRN PRN Reason: If no BM Citalopram Hydrobromide (Citalopram 20 Mg Tablet) 20 mg PO DAILY [facility] Last Admin: 02/16/20 13:17 Dose: 20 mg Documented by: Diphenhydramine HCl (Diphenhydramine 25 Mg Capsule) 25 mg PO Q6H PRN PRN PRN Reason: ITCHING Stop: 02/17/20 09:15 Heparin Sodium (Porcine) (Heparin Injection (Vial) 5,000 Unit/Ml Vial) 5,000 unit SC Q12 [facility] Last Admin: 02/16/20 21:11 Dose: 5,000 unit Documented by: Hydrocortisone (Hydrocortisone 2.5% Crm) 1 applic TOPICAL TID PRN PRN; Protocol PRN Reason: Discomfort Lactated Ringer's () 1,000 mls @ 100 mls/hr IV .Q10H [facility] Last Infusion: 02/16/20 16:00 Dose: Infused Documented by: Ibuprofen (Ibuprofen 600 Mg Tablet) 600 mg PO Q6H [facility] Ketorolac Tromethamine (Ketorolac 30 Mg/Ml Syringe) 30 mg IV Q6H [facility] Stop: 02/17/20 09:01 Last Admin: 02/16/20 21:09 Dose: 30 mg Documented by: Methylergonovine Maleate (Methylergonovine 0.2 Mg/Ml Ampul) 0.2 mg IM X1 PRN PRN Reason: Uterine Atony Nalbuphine HCl (Nalbuphine 10 Mg/Ml Ampul) 5 mg IV Q3H PRN PRN PRN Reason: ITCHING Stop: 02/17/20 09:15 Naloxone HCl (Naloxone 0.4 Mg/Ml Syringe) 0.02 mg IV Q1M PRN PRN Reason: RR <10 and pt unresponsive Ondansetron HCl (Ondansetron 4 Mg/2 Ml Vial) 4 mg IV Q4H PRN PRN PRN Reason: Nausea Oxycodone HCl (Oxycodone 5 Mg Tablet) 5 - 10 mg PO Q4H PRN PRN PRN Reason: Pain Score 4-10 Multivit/Folic Acid/Iron ( Vits Tablet) 1 tablet PO DAILY@1200 [facility] Last Admin: 02/16/20 13:17 Dose: 1 tablet Documented by: Prochlorperazine Edisylate (Prochlorperazine 10 Mg/2 Ml Vial) 10 mg IV Q6H PRN PRN PRN Reason: NAUSEA Senna/Docusate Sodium (Senna/Docusate Sodium 1 Tablet) 1 - 2 tablet PO DAILY [facility] Last Admin: 02/16/20 10:14 Dose: Not Given Documented by: Simethicone (Simethicone 80 Mg Tablet) 80 mg PO PCHS PRN PRN Reason: Indigestion/stomach pain Sodium Chloride (0.9% Saline Lock 10 Ml Syringe) 5 - 15 ml IV UD PRN PRN Reason: SALINE FLUSH Last Admin: 02/16/20 21:11 Dose: 10 ml Documented by: Medical Necessity - Tobacco Use Smoking Status: Never smoker Assessment/Plan All Active Problems (Last Updated 02/16/20 @ 08:[address] Ifrah Ramos MD) 39 weeks gestation of (Acute) Previous section (Acute) 28 weeks gestation of (Acute) Acute cystitis (Acute) 24 yo POD#1 s/p repeat section. . Pain controlled. Labs pending. Home today.
[2020-02-17 03:16] VITALS: BP 111/49; PULSE 77; RESP 14; O2SAT 95
[2020-02-17] MEDS: Ketorolac 30 MG/ML Syringe IV ×2 (03:18→09:13)
[2020-02-17] MEDS: 0.9% Saline Lock 10 ML Syringe IV ×2 (03:20→09:14)
[2020-02-17 05:40] VITALS: PULSE 71; RESP 16; O2SAT 97
--- NOTE | 2020-02-17 06:23 | NURSING ---
CBC attempt x2. Blood return noted, but slow flow upon both attempts. Small amount of blood collected and sent to lab. Lab notified of small amount of blood, and this RN requested that a lab animal technologist come draw the lab if the amount was not adequate.
[2020-02-17 06:30] LABS: Bedside Glucose 107 mg/dL (70-110)
--- NOTE | 2020-02-17 07:04 | DCINST_ITS ---
Discharge Activity: Return to Normal Activity, May Shower May resume sexual activity in: 6 weeks Weight Bearing Status: Weight bearing as tolerated Call your doctor if your incision/area has: Continuous Slow Oozing, Sudden Increased Bleeding, Increased Pain/ Swelling, Increased Redness Call your doctor if you observe: Fever of 101 or Higher, Inability to urinate, Inability to have a bowel movement, Using more than one pad per hour, Shortness of breath Cleanse incision/area with: Soap & Water Additional Instructions: If you experience any of the following, contact your healthcare provider. * Bleeding that soaks a pad every hour for 2 hours * Fever 100.4 or higher * Unrelieved incision or abdominal pain * Swelling, redness, discharge or bleeding from your incision or episiotomy site * Your incision begins to separate * Problems urinating (including inability to urinate or burning while urinating). * Visual changes * Severe headache * Flu-like symptoms * Pain or redness in one of both of your breasts * Pain, warmth, tenderness or swelling in your legs, especially the calf area * Frequent nausea and vomiting * Symptoms of depression or anxiety If you experience any of the following, call 911 or go to the nearest Emergency Room. * Chest pain * Problems breathing * Seizure activity * Partial or complete paralysis of a body part, slurred speech, weakness or drooping of the face, or a sudden inability to walk or hold your balance Allergies/Adverse Reactions: Allergies acetaminophen [From Tylenol] Allergy (Verified 02/16/20 05:17) Swelling Medications to take at Discharge No122/Iron/Folic Acid [ Multi Tablet] 1 each PO DAILY 03/05/17 Citalopram [Celexa] 20 mg PO DAILY 02/13/20 Ferrous Sulfate 325 po.syringe PO DAILY 02/16/20 Follow-Up: Call to make an appointment with your doctor for an incision check in 1-2 weeks. You will also need a 6 week post- follow up appointment. Test results from this visit will be discussed in further detail at your follow- up appointment, if applicable. Please Follow Up With: Ifrah Cruz MD Primary Care Physician: Care Physician,No Primary [Primary Care Provider] - Proposed Discharge Date: 02/17/20
[2020-02-17 07:50] LABS: Hematocrit 31.2 % (37-47); Hemoglobin 10.2 g/dL (12.0-15.0); Mean Corp Hgb Conc 32.7 g/dL (32-36); Mean Corpuscular Hgb 28.6 pg (27.0-32.0); Mean Corpuscular Volume 87.4 fL (81-99); Mean Platelet Vol. 10.9 fl (6.2-12.0); Platelet Count 195 K/mm3 (150-450); RBC Distribution Width CV 15.4 % (11.6-14.6); RBC Distribution Width SD 49.1 fl (35.1-43.9); Red Blood Count 3.57 M/mm3 (4.2-5.4); White Blood Count 9.8 K/mm3 (4.4-11.0)
[2020-02-17 08:55] VITALS: BP 113/59; PULSE 78; RESP 16; TEMP 36.1; O2SAT 96
[2020-02-17] MEDS: Heparin Injection (Vial) 5,000 UNIT/ML VIAL 5000 UNIT SC (10:42)
[2020-02-17] MEDS: Citalopram 20 MG Tablet PO (10:43)
[2020-02-17] MEDS: Prenatal Vits Tablet 1 TABLET PO (12:23)
[2020-02-17 14:51] VITALS: BP 130/67; PULSE 90; RESP 16; TEMP 36.2; O2SAT 95
[2020-02-17] MEDS: Ibuprofen 600 MG Tablet PO (15:04)
--- NOTE | 2020-02-17 16:07 | CASEMGMT ---
Social Work Assessment Labor and Delivery Unit Patient Address: [birth year][address][birth year][address], [place] [address] Phone number: [phone] Date of Referral: 02/17/2020 Time of Referral: 12 09 Referred By: Verbal notification by nursing staff Date of Intervention: 02/17/2020 Time of Intervention: 1430 Reason for Referral: Maternal history of depression and anxiety; PHQ 2 trigger History obtained from: Medical records and mother of baby (MOB) Anna Marie Escobar Household composition: MOB, father of baby (FOB) Pato Valdovinos, and their 2 older children live in a home. Home situation is reported as safe and adequate. Patient's parent/guardian status: ROBBIN is a 24-year-old single female involved with the FOB who is 25 for the last 5 years. MOB denies any form of abuse in this relationship. MOB and FOB now have 3 children. Víctor Valdovinos, born June 2016; Dagamr Valdovinos, born 08/24/2017; and Salvador Valdovinos, born 02/16/2020. Medical History: ROBBIN is 3, para 2 now 3 after delivering Rett. care started at 13 weeks and regular thereafter. Delivery via . Rett's Apgars were 9 and 9 at 1 and 5 minutes of life. Educational Status: ROBBIN graduated high school and has some college. ROBBIN is able to read, write, and understands what is read. Financial Status: ROBBIN currently stays at home with the children. FOB works outside of the home in retail at a local sports store. Infant Supplies: MOB reports to have all needed supplies to care for the baby including a safe sleep space in the form of a bassinet and a crib. Car seat is also in place. MOB reports to have safe sleep spaces for all of the children. Childcare/Caregiver(s): MOB is the primary caregiver of the children. FOB assist went home. Transportation: MOB denies any concerns reports transportation is adequate. Programs/Agencies Involved: MOB is involved with job and family services for food and medical. Active with WIC. Reports WIC recently referred MOB to help me grow. MOB has a history of counseling but nothing current. Children Services/Legal Issues: MOB denies any history of children services or legal issues. Behavioral Health Issues: Mental Health History: MOB reports history of depression, anxiety, and also had depression after both of her daughters. MOB denies any history of suicidal ideation or attempts. No reports of any thoughts of harming others either. MOB describes past depression is feeling down and depressed and not really having a lot of emotion. PHQ-9 was done with the MOB this date, refer to the attached link for further details. Score was a 13 which falls in the moderate range of depression. ROBBIN had a depression screen done in the care back in July and score was 11 at that point. ROBBIN is currently on Celexa. MOB reports to cope by journaling about her day and feelings, and then throwing the journal entry away. MOB also likes to do adult coloring. Substance Use History: MOB denies any history of substance use issues. No tobacco use either. Family History: MOB mother has a history of depression. Drug Screens: MOB had 1 drug screen done during and this was negative. Family/Social Stressors: Unplanned , with some ambivalent feelings at the beginning. MOB reports she is excepting of the and is happy about her baby now. Due to Covid MOB has quarantined herself for the last couple of weeks at home, which has been a difficult time because this changed family traditions around the . MOB admits to increase of depressive symptoms over the last couple of weeks. Support Systems: MOB reports to have a good support system. MOB reports to have 3 family members who she will regularly go to and talk with when she is having a hard day or feeling stressed out. MOB reports the FOB will be off of work through the weekend to help with the transition home with a new baby and also with the care of the other children. MOB mother plans to come over next week for a couple of days to help out. Depression/Shaken Baby/Safe Sleeping MOB is aware of shaken baby prevention and safe sleeping. Information provided to take home. Educated to depression and anxiety, briefly touched on risk factors, and follow-up. ASSESSMENT: Met with MOB and FOB in the room, introducing to self and social work role. MOB had not yet filled out the PHQ-9 form that was given to the MOB in the morning hours. This fiction writer asked the FOB to step out of the room so that this fiction writer could complete the depression screen privately. FOB left room without issue. Assessment completed with the MOB including the PHQ-9 depression screen. MOB endorses increase of symptoms over the last couple of weeks associated with quarantining at home and also changes in holiday traditions. MOB reports to be on antidepressant medication already, and reports to have a for trouble appointment set with Dr. Tracey Ramos in a week or 2 and can review status of depression at that time. MOB verbally agrees to talk with the doctor should symptoms worsen or change, or become distressing. Broached the topic of counseling with MOB, but MOB reports to prefer to talk to her 3 support people within her family rather than talking to a stranger. MOB was excepting of resource list however that did include counseling options should the MOB change her mind down the road. MOB reports to have needed baby supplies, and will have help upon home-going. MOB reports ports to feel a loving connection to the baby, and would not change having this baby for anything. MOB is currently active with job and family services, [facility], and reports was just recently referred to help me grow. MOB held normal eye, affect constricted, mood congruent to content. MOB talkative, and acknowledges her depression history. MOB able to endorse healthy coping skills that she uses, and understanding to call the doctor if symptoms change. No voiced concerns by nursing staff regarding parent-child interactions or bonding. This fiction writer observed MOB to be holding the baby throughout the entirety of the social work visit. MOB was gentle, and did look at the baby intermittently and would smile when looking at the baby. PLAN: MOB and the will discharge home. MOB has been provided with a [facility] resource list as well as a mood and anxiety disorder packet. Reviewed with [facility] resources for mother is in the timeframe. No other services requested or indicated. -KEVYN Peres, YORDAN *Information documented in this assessment generated with [facility]*
== END 2020-02-17 15:15 | disposition home or self-care (01) | DRG 788 ==
PROVIDERS: Admitting Provider Obstetrics & Gynecology; Referring Provider Obstetrics & Gynecology; Visit Provider Obstetrics & Gynecology
PROC: 10D00Z1 Extraction of Products of Conception, Low, Open Approach (ICD-10-PCS; CPT 59514; principal; 2020-02-16 07:15)
DX: O34.219 Maternal care for unspecified type scar from previous cesarean delivery (principal); Z37.0 Single live birth; O24.429 Gestational diabetes mellitus in childbirth, unspecified control; Z3A.39 39 weeks gestation of pregnancy; O40.3XX0 Polyhydramnios, third trimester, not applicable or unspecified; O99.344 Other mental disorders complicating childbirth; F32.9 Major depressive disorder, single episode, unspecified
CPT/HCPCS: 36415; 82962; 85025; 85027; 86850; 86900; 86901; 99218; J7120; A4216; G0378; J2405

== ENCOUNTER → 2020-07-16 12:28 | Outpatient (CLI) | payer BC, MEDICAID, SELFPAY ==
[2020-02-16 05:16] VITALS: BMI 40.1
[2020-07-16 14:21] LABS: Hemoglobin A1c 5.3 % (3.8-5.6)
[2020-07-16 14:22] LABS: Estradiol 23.3 pg/mL; Prolactin 4.1 ng/mL; T4 Total, Thyroxin 14.3 ug/dL (4.8-13.9); Thyroid Stim Hormone (TSH) 0.88 uIU/mL (0.358-3.74)
== END ==
PROVIDERS: Referring Provider Obstetrics & Gynecology; Visit Provider Obstetrics & Gynecology
DX: R68.82 Decreased libido (principal); N90.5 Atrophy of vulva; L65.9 Nonscarring hair loss, unspecified; N92.6 Irregular menstruation, unspecified; E03.9 Hypothyroidism, unspecified; Z86.32 Personal history of gestational diabetes
CPT/HCPCS: 36415; 82670; 83036; 84146; 84270; 84403; 84436; 84439; 84443; 84481

== ENCOUNTER → 2020-10-04 15:11 | Outpatient (CLI) | payer BC, MEDICAID, SELFPAY ==
[2020-02-16 05:16] VITALS: BMI 40.1
[2020-10-04 16:00] LABS: Absolute Lymphocyte Count 2.05 X10^3/uL (0.83-4.51); Absolute Neutrophil Count 5.1 X10^3/uL (2.0-7.7); Basophil# 0.02 X10^3/uL; Basophil% 0.3 % (0-1); Color, Urine Yellow (Yellow); Eosinophil# 0.07 X10^3/uL; Eosinophils% 0.9 % (0-5); Glucose, Dipstick Normal (Normal); Hematocrit 39.6 % (37-47); Hemoglobin 12.7 g/dL (12.0-15.0); Ketone-Dipstick Negative (Negative); Leukocyte Esterase-Dipstick 100 /ul (Negative); Lymphocyte # 2.05 X10^3/ul (0.83-4.51); Lymphocyte % 25.8 % (19-41); Mean Corp Hgb Conc 32.1 g/dL (32-36); Mean Corpuscular Hgb 27.5 pg (27.0-32.0); Mean Corpuscular Volume 85.9 fL (81-99); Mean Platelet Vol. 10.8 fl (6.2-12.0); Monocyte% 8.8 % (0-10); NRBC Flagged by Analyzer 0 % (0-5); Neutrophil # 5.08 X10^3/uL (2.7-7.7); Neutrophil % 63.9 % (47-70); Nitrite-Dipstick Negative (Negative); Occult Blood-Urine Negative /ul (Negative); Platelet Count 276 K/mm3 (150-450); Protein-Dipstick 15 mg/dl (Negative); RBC Distribution Width SD 43.8 fl (35.1-43.9); Red Blood Count 4.61 M/mm3 (4.2-5.4); Urine Bilirubin Dipstick Negative (Negative); Urine Clarity Clear (Clear); Urine Urobilinogen 1 mg/dl (Normal); Urine pH 6.5 (5.0 - 8.0); White Blood Count 7.9 K/mm3 (4.4-11.0)
[2020-10-04 16:12] LABS: Amphetamine Urine VISTA NEGATIVE (<1000 ng/mL); Barbiturate Urine VISTA NEGATIVE (< 200 ng/mL); Benzodiazepine Urine VISTA NEGATIVE (< 200 ng/mL); Cocaine Urine VISTA NEGATIVE (< 300 ng/mL); Ecstacy Urine VISTA NEGATIVE (< 500 ng/mL); Methadone Urine VISTA NEGATIVE (< 300 ng/mL); PCP Urine VISTA NEGATIVE (< 25 ng/mL); THC Urine VISTA NEGATIVE (< 50 ng/mL); Vista UDS pH Range 6
[2020-10-04 16:42] LABS: Thyroid Stim Hormone (TSH) 0.64 uIU/mL (0.358-3.74)
[2020-10-05 09:32] LABS: HIV - WCH Non-Reactive (Nonreactive); Hepatitis B Surface Antigen Non-Reactive (Nonreactive); Hepatitis C Antibody Non-Reactive (Nonreactive); Rubella IgG Equiv (Nonreactive); Syphilis Antibodies Non-reactive
[2020-10-07 08:08] LABS: Chlamydia By Nucleic Acid AMP Negative (Negative)
[2020-10-07 12:09] LABS: Gonococcus By Nucleic Acid AMP Negative (Negative)
== END ==
PROVIDERS: Visit Provider Obstetrics & Gynecology
DX: Z34.81 Encounter for supervision of other normal pregnancy, first trimester (principal)
CPT/HCPCS: 36415; 80307; 81002; 84443; 85025; 86703; 86762; 86780; 86803; 87340; 87491; 87591

== ENCOUNTER → 2020-12-07 15:47 | Outpatient (CLI) | payer BC, MEDICAID, SELFPAY ==
[2020-12-07 16:26] LABS: Glucose Challenge Gest 1H 50g 116 mg/dL (70-140)
== END ==
PROVIDERS: Visit Provider Obstetrics & Gynecology
DX: Z34.82 Encounter for supervision of other normal pregnancy, second trimester (principal)
CPT/HCPCS: 36415; 82950

== ENCOUNTER → 2020-12-08 14:23 | Outpatient (CLI) | payer BC, MEDICAID, SELFPAY | PROVIDERS: Referring Provider Physician Assistant; Visit Provider Physician Assistant | DX: Z11.52 Encounter for screening for COVID-19 (principal) | CPT/HCPCS: 87635; U0005; U0003 ==

== ENCOUNTER → 2021-03-08 16:06 | Outpatient (CLI) | payer BC, MEDICAID, SELFPAY ==
[2021-03-08 17:05] LABS: Hematocrit 39.6 % (37-47); Mean Corp Hgb Conc 32.8 g/dL (32-36); Mean Corpuscular Hgb 28.4 pg (27.0-32.0); Mean Corpuscular Volume 86.7 fL (81-99); Mean Platelet Vol. 10.4 fl (6.2-12.0); Platelet Count 310 K/mm3 (150-450); RBC Distribution Width CV 14.8 % (11.6-14.6); RBC Distribution Width SD 46.8 fl (35.1-43.9); Red Blood Count 4.57 M/mm3 (4.2-5.4); White Blood Count 13.1 K/mm3 (4.4-11.0)
[2021-03-08 17:40] LABS: Glucose Challenge Gest 1H 50g 128 mg/dL (70-140)
== END ==
PROVIDERS: Visit Provider Obstetrics & Gynecology
DX: Z34.82 Encounter for supervision of other normal pregnancy, second trimester (principal)
CPT/HCPCS: 36415; 82950; 85027

== ENCOUNTER 2021-03-20 18:30 | Outpatient (CLI) | payer BC, MEDICAID, SELFPAY ==
[2021-03-20 18:51] VITALS: TEMP 36.4; O2SAT 97
[2021-03-20 18:54] VITALS: BMI 38.5
[2021-03-20 19:23] VITALS: BP 130/60; PULSE 103
[2021-03-20] MEDS: cycloBENZAPRine HCl 10 MG Tablet PO (20:18)
[2021-03-20 20:23] LABS: Mean Corp Hgb Conc 33.3 g/dL (32-36); Mean Corpuscular Hgb 28.3 pg (27.0-32.0); Mean Corpuscular Volume 84.9 fL (81-99); Mean Platelet Vol. 10.2 fl (6.2-12.0); Platelet Count 239 K/mm3 (150-450); RBC Distribution Width CV 14.7 % (11.6-14.6); RBC Distribution Width SD 44.6 fl (35.1-43.9); Red Blood Count 4.24 M/mm3 (4.2-5.4); White Blood Count 12.9 K/mm3 (4.4-11.0)
--- NOTE | 2021-03-20 20:31 | OB.TRI.NOTE ---
HPI - General HPI Narrative MARIA FERNANDA VALDOVINOS, is a 25 F who presents headache PFSH PFSH Medical History (Updated 03/20/21 @ 20:[address] Armani Valdovinos MD) Depression Migraines Home Medications Multi 1 ea PO DAILY 03/05/17 [History Last Taken 03/19/21] citalopram 20 mg PO DAILY 02/13/20 [History Last Taken 03/20/21] Allergy/AdvReac Type Severity Reaction Status Date / Time acetaminophen [From Tylenol] Allergy Swelling Verified 02/16/20 05:17 Surgical History (Updated 02/16/20 @ 08:[address] Ifrah Ramos MD) Previous section Social History Smoking Status: Never smoker History Elective abortions Hx Para 2 Spontaneous abortions Hx # Term Pregnancies Ectopic pregnancies Hx # Pregnancies Multiple births # of living children Physical Exam Const alert, oriented x3, no apparent distress, average body habitus, no limitations, healthy appearing and well nourished HEENT moist oral mucous membranes Head and Scalp: normocephalic and atraumatic Face and Sinus: normal facial exam Eyes PERRL Neck full ROM Resp normal respiratory effort, no retractions and no use of accessory muscles GI GI Narrative: Soft, nontender, gravid Extremity normal to inspection, full ROM, no clubbing, cyanosis or edema, no calf tenderness and no pedal edema Neuro deep tendon reflexes 2+ bilaterally Motor Exam: clonus absent Psych mental status grossly normal, affect normal, speech normal and activity/motor behavior normal NST FHR Rate Baby A Baseline: 130 Variability:: Moderate Accelerations:: 15 x 15 Decelerations:: None NST Reactive:: Yes Uterine Activity:: Quiet Assessment & Plan (1) : PLAN: Patient arrives with headache for 1 week. History of migraines. Vital signs within normal limits. Exam benign, negative clonus, DTRs +2 bilaterally. No visual changes. Patient with Tylenol allergy, this rules out Tylenol and Fioricet as treatment options. Patient typically takes Aleve, contraindicated in . Discussed limited options for patient discussed Flexeril versus Benadryl, patient elects for Flexeril. Discussed limited role for improvement. HELLP labs sent. If normal help labs, very reassuring based on stable blood pressures. Will have limited reliability on headache is a symptom for preeclampsia with patient's history of migraines and limited ability to treat in based on Tylenol allergy. Reassuring that no visual changes with headache. Pending lab results will DC home if lab results stable and no major changes.
[2021-03-20 20:40] LABS: ALB/GLOB Ratio 0.5 RATIO (0.9-2.4); AST(SGOT) 8 U/L (15-37); Alanine Aminotransfer ALT/SGPT 12 U/L (13-56); Albumin, Serum 2.3 g/dL (3.2-5.0); Alkaline Phosphatase 103 U/L (45-117); Anion Gap 7 (5-15); BUN 5 mg/dL (7-18); BUN/Creat Ratio 9.4 RATIO (10-20); Calcium,Total 8.2 mg/dL (8.5-10.1); Chloride 108 mmol/L (98-107); Creatinine, Serum 0.53 mg/dL (0.55-1.02); EST Glomerular Filtration Rate 151 mL/min (>60); Est Glom Filt Rate - Afr Amer 182 mL/min (>60); Estimated Creatinine Clearance 172.53 ml/min; Globulin 4.3 g/dL (2.2-4.2); Glucose 96 mg/dL (74-106); LDH 126 U/L (84-246); Potassium 3.7 mmol/L (3.5-5.1); Protein, Total 6.6 g/dL (6.4-8.2); Sodium Level 140 mmol/L (136-145)
== END 2021-03-20 23:59 | disposition home or self-care (01) ==
LOC: WPOUT 18:47 → WP 18:48
PROVIDERS: PCP Student in an Organized Health Care Education/Training Program; Visit Provider Obstetrics & Gynecology
DX: O99.350 Diseases of the nervous system complicating pregnancy, unspecified trimester (principal); G43.909 Migraine, unspecified, not intractable, without status migrainosus; O99.340 Other mental disorders complicating pregnancy, unspecified trimester; F32.A Depression, unspecified; Z3A.00 Weeks of gestation of pregnancy not specified
CPT/HCPCS: 59025; 59050; 80053; 83615; 85027; 99218; G0378

== ENCOUNTER 2021-03-22 18:20 | Outpatient (CLI) | payer BC, MEDICAID, SELFPAY ==
[2021-03-22] VITALS (18 sets, daily range): BP systolic 115; BP diastolic 62–68; PULSE 111–125; TEMP 36.7; O2SAT 94–99; BMI 38.4
--- NOTE | 2021-03-22 19:03 | CT_ITS ---
STUDY: CT BRAIN WITH AND WITHOUT CONTRAST REASON FOR EXAM: Female, 25 years old. 27 wga, h/a x 1 week, r/o sinus venous thrombosis RADIATION DOSAGE (If Supplied By Facility): CTDIvol = ( ) mGy, DLP = ( 1670.96 ) mGycm TECHNIQUE: Transaxial CT imaging of the brain was performed pre and post contrast administration. The examination was performed with intravenous administration of IV 50mL Isovue-370. Individualized dose optimization techniques were used for this CT. COMPARISON: MRI of the brain 01/15/2013 FINDINGS: Normal soft tissue structures. Normal calvarium. Normal size ventricles and extra-axial spaces for the patient''s age. Normal white matter tracts of the cerebral hemispheres. Normal basal ganglia and thalami. Normal brainstem. Normal cerebellum. There is no intracranial hemorrhage. There are no findings of an acute ischemic infarction. Minor mucosal thickening of the mastoid air cells bilaterally. Mild mucosal thickening of the maxillary sinuses bilaterally CT/Brain/Head W/WO Contrast IMPRESSION: Normal unenhanced and enhanced CT scan of the brain. Mild bilateral maxillary and mastoid sinus disease likely chronic Electronically Signed: Jesus Alberto Marie MD at 20:59 EST , Service support ,
--- NOTE | 2021-03-22 19:12 | OB.TRI.NOTE ---
HPI - General HPI Narrative -/MARIA FERNANDA WALSH, is a 25 F who presents at 31 1/7 weeks gestation for c/o 1 week worsening headache. Headache with sudden onset and worsening, is severe, behind right eye, radiating into head.+ light sensitivity, + nausea. Pain is 7/10. Denies recent exposures or change in environment. Has hx migraines outside of and usually takes Aleve with relief. Pt is allergic to Tylenol. Has failed trial of caffeine with benadryl. Denies abdominal pain. +FM, no leaking of fluid or vaginal bleeding. Maternal Data Information LOR Calculator Estimated Delivery Date Method Current WG Current Estimate 05/23/21 Ultrasound #1 31w 2d [facility] Medical History (Updated 03/22/21 @ 19:[address] Ifrah Ramos MD) Depression Migraines Home Medications Multi 1 ea PO DAILY 03/05/17 [History Last Taken 03/21/21] citalopram 20 mg PO DAILY 02/13/20 [History Last Taken 03/20/21] diphenhydramine HCl [Benadryl] 50 mg PO BID 03/22/21 [History Last Taken 03/22/21 25] Allergy/AdvReac Type Severity Reaction Status Date / Time acetaminophen [From Tylenol] Allergy Swelling Verified 02/16/20 05:17 Surgical History (Updated 03/22/21 @ 19:[address] Ifrah Ramos MD) Previous section Previous section Social History Smoking Status: Never smoker History Elective abortions Hx Para 2 Spontaneous abortions Hx # Term Pregnancies Ectopic pregnancies Hx # Pregnancies Multiple births # of living children ROS ROS Narrative see HPI Physical Exam Const alert and oriented x3 Constitutional Narrative: appears uncomfortable Orientation / Consciousness: awake HEENT normocephalic Teeth and Gingiva: abnormal tooth and associated gingiva Eyes EOMs intact bilaterally and normal visual naranjo by confrontation General Eye: normal appearance of both eyes Resp normal respiratory effort, normal air movement and clear to auscultation bilaterally Cardio regular rhythm, S1 normal heart sound and S2 normal heart sound Rate: tachycardic GI normal to inspection, nondistended, normoactive bowel sounds, soft to palpation and non-tender Inspection: gravid Skin Skin Narrative: papular eruption on bilateral lower extremities with associated erythema - reports exposed to fleas from sisters dog several days ago. Neuro oriented x3, CN's II-XII intact bilaterally, moves all extremities, no sensory deficits noted, deep tendon reflexes 2+ bilaterally and gait normal Sensorium / Orientation: awake, alert and oriented to person Motor Exam: general weakness NST FHR Rate Baby A Baseline: 155 Variability:: Moderate Accelerations:: 10 x 10 Decelerations:: None NST Reactive:: Yes and Appropriate for gestational age FHR Category:: Category I Uterine Activity:: 0/10 Assessment & Plan (1) Migraine headache: QUALIFIERS: Intractability: intractable Migraine type: without aura Status migrainosus presence: with status migrainosus Qualified Code(s): G43.011 - Migraine without aura, intractable, with status migrainosus PLAN: IV Reglan CT Head - r/o acute cerebral even, thrombosis Preeclamptic labs (2) : QUALIFIERS: Weeks of gestation: 31 weeks Qualified Code(s): Z3A.31 - 31 weeks gestation of PLAN: NST AGA Charges/Coding Visit Charges Office Visits / Consults: 04994 OV L4 Est
[2021-03-22 19:45] LABS: Bacteria 0 SEEN /hpf (None Seen); Mucous, Urine 0 SEEN /hpf (<or=2+); Red Blood Cells-Urine 0 SEEN /hpf (0-5)
[2021-03-22 19:52] LABS: Color, Urine Yellow (Yellow); Glucose, Dipstick Normal (Normal); Ketone-Dipstick Negative (Negative); Leukocyte Esterase-Dipstick 500 /ul (Negative); Nitrite-Dipstick Negative (Negative); Occult Blood-Urine 10 /ul (Negative); Protein-Dipstick Negative (Negative); Urine Bilirubin Dipstick Negative (Negative); Urine Clarity Clear (Clear); Urine Urobilinogen Normal (Normal)
[2021-03-22 19:59] LABS: Squamous Epithelial Cells - UA 5-10 SEEN /hpf (5-10); White Blood Cells 5-10 SEEN /hpf (0-5)
[2021-03-22 20:03] LABS: Protein, Urine (Random) 13.9 mg/dL (<11.9); Protein:Creat Ratio 90 mg/g CRE (0-200)
[2021-03-22 20:23] LABS: Hematocrit 38.5 % (37-47); Hemoglobin 12.5 g/dL (12.0-15.0); Mean Corp Hgb Conc 32.5 g/dL (32-36); Mean Corpuscular Hgb 27.7 pg (27.0-32.0); Mean Corpuscular Volume 85.4 fL (81-99); Mean Platelet Vol. 10.9 fl (6.2-12.0); Platelet Count 231 K/mm3 (150-450); RBC Distribution Width CV 14.9 % (11.6-14.6); RBC Distribution Width SD 45.6 fl (35.1-43.9); Red Blood Count 4.51 M/mm3 (4.2-5.4); White Blood Count 8.3 K/mm3 (4.4-11.0)
[2021-03-22 20:37] LABS: AST(SGOT) 12 U/L (15-37); Alanine Aminotransfer ALT/SGPT 14 U/L (13-56); Creatinine, Serum 0.58 mg/dL (0.55-1.02); EST Glomerular Filtration Rate 136 mL/min (>60); Est Glom Filt Rate - Afr Amer 164 mL/min (>60); Estimated Creatinine Clearance 157.65 ml/min; Uric Acid 5.6 mg/dL (2.6-6.0)
[2021-03-22] MEDS: Lactated Ringers 1,000 ML 999 ML IV (20:55)
[2021-03-22] MEDS: Metoclopramide 10 MG/2 ML Vial 5 MG IV (20:57)
== END 2021-03-22 23:59 | disposition home or self-care (01) ==
LOC: WPOUT 18:24 → WP 18:25
PROVIDERS: PCP Student in an Organized Health Care Education/Training Program; Visit Provider Obstetrics & Gynecology
DX: O99.353 Diseases of the nervous system complicating pregnancy, third trimester (principal); G43.911 Migraine, unspecified, intractable, with status migrainosus; Z3A.31 31 weeks gestation of pregnancy; O99.343 Other mental disorders complicating pregnancy, third trimester; F32.A Depression, unspecified
CPT/HCPCS: 96361; 96374; 36415; 59025; 59050; 70470; 81001; 82565; 82570; 84156; 84450; 84460; 84550; 85027; 87426; 99218; J7120; Q9967; G0378

== ENCOUNTER 2021-04-27 15:33 | Outpatient (CLI) | payer BC, MEDICAID, SELFPAY | END 2021-04-27 23:59 | disposition home or self-care (01) | LOC: LABSPEC 15:40 | PROVIDERS: PCP Student in an Organized Health Care Education/Training Program; Visit Provider Obstetrics & Gynecology | DX: Z36.85 Encounter for antenatal screening for Streptococcus B (principal) | CPT/HCPCS: 87081 ==

== ENCOUNTER 2021-05-13 14:24 | Outpatient (CLI) | payer BC, MEDICAID, SELFPAY | END 2021-05-13 23:59 | disposition home or self-care (01) | LOC: PSN 14:26 | PROVIDERS: PCP Student in an Organized Health Care Education/Training Program; Referring Provider Obstetrics & Gynecology; Visit Provider Obstetrics & Gynecology | DX: Z20.822 Contact with and (suspected) exposure to COVID-19 (principal) | CPT/HCPCS: 87426 ==

== ENCOUNTER 2021-05-17 05:10 | Inpatient (IN) | payer BC, MEDICAID, SELFPAY ==
[2021-05-17] VITALS (16 sets, daily range): BP systolic 94–134; BP diastolic 44–83; PULSE 54–93; RESP 16–18; TEMP 35.9–37.2; O2SAT 95–100; BMI 38.9
--- NOTE | 2021-05-17 | FALS_PTH ---
PATIENT: MARIA FERNANDA WALSH LOC: [facility] U#:[id number] AGE/SX: 25/F ROOM: WP005 RE05/17/[address]: Dr. Ifrah Ramos MD : 1995 BED: 1 DIS: 05/18/2021 SPEC #: [id number] RECD: 05/17/21 10:19 STATUS: CARLOS A YASMANI #: [id number] ILANA: 05/17/21 00:[address]: Ifrah Cruz DEPT: SURGICAL PATHOLOGY RECD BY: Guille Figueroa ENTERED: 05/17/21 10:19 SP TYPE: FALL TUBES OTHR DR: Dr. Emy Mason MD Tissues: Fallopian tube Procedures: Surgery Specimen Level II HEADER OPERATION: Tubal ligation PRE-OP DIAGNOSIS: Sterilization TISSUE SUBMITTED: Fallopian tubes, suture in left MICROSCOPIC DIAGNOSIS Bilateral fallopian tubes, salpingectomy: Bilateral fallopian tubes, no pathologic diagnosis. SJ:meg 05/18/2021 MICROSCOPIC DESCRIPTION Slides are reviewed. GROSS DESCRIPTION Received in fixative is one container labeled with the patient's name and designated bilateral fallopian tubes, suture in left. The specimen consists of bilateral fallopian tubes including fimbrial ends. The right fallopian tube measures 6 cm in length and 0.8 cm in diameter and the left fallopian tube measures 7 cm in length and 0.7 cm in diameter. The fallopian tubes are not identified as right or left. Sections reveal unremarkable cut surfaces. Case Operator sections are submitted in two cassettes as follows: 1 - right fallopian tube, 2 - left fallopian tube. / Eva 05/17/2021 TC:4 CPT: 97361 x2
[2021-05-17] MEDS: Lactated Ringers 1,000 ML 999 ML IV (05:35)
[2021-05-17 06:05] LABS: Absolute Lymphocyte Count 2.31 X10^3/uL (0.83-4.51); Absolute Neutrophil Count 5.6 X10^3/uL (2.0-7.7); Basophil# 0.01 X10^3/uL; Basophil% 0.1 % (0-1); Eosinophil# 0.09 X10^3/uL; Eosinophils% 1.1 % (0-5); Hematocrit 33.3 % (37-47); Lymphocyte # 2.31 X10^3/ul (0.83-4.51); Lymphocyte % 27.4 % (19-41); Mean Corpuscular Hgb 27.2 pg (27.0-32.0); Mean Corpuscular Volume 82.2 fL (81-99); Mean Platelet Vol. 11.7 fl (6.2-12.0); Monocyte# 0.46 X10^3/uL; Monocyte% 5.5 % (0-10); NRBC Flagged by Analyzer 0 % (0-5); Neutrophil # 5.55 X10^3/uL (2.7-7.7); Neutrophil % 65.7 % (47-70); Platelet Count 213 K/mm3 (150-450); RBC Distribution Width SD 45.1 fl (35.1-43.9); Red Blood Count 4.05 M/mm3 (4.2-5.4); White Blood Count 8.4 K/mm3 (4.4-11.0)
[2021-05-17] MEDS: Lactated Ringers 1,000 ML 150 ML IV (06:30)
[2021-05-17] MEDS: Sodium Citrate/Citric Acid 30 ML UDC PO (07:12)
--- NOTE | 2021-05-17 07:25 | PCM.HP.OB ---
HPI - General General Date of Admission: 05/17/21 HPI Narrative MARIA FERNANDA WALSH, is a 25 F who presents at 39 1/7wga for scheduled repeat section and bilateral salpingectomy. Maternal Data Information LOR Calculator Estimated Delivery Date Method Current WG Current Estimate 05/23/21 Ultrasound #1 39w 1d [facility] PFS Medical History Anxiety Depression Gestational diabetes Headache Migraines depression Home Medications Multi 1 ea PO DAILY 03/05/17 [History Last Taken 05/16/21 08:00] citalopram 20 mg PO DAILY 02/13/20 [History Last Taken 03/20/21] Allergy/AdvReac Type Severity Reaction Status Date / Time acetaminophen [From Tylenol] Allergy Swelling Verified 05/17/21 05:53 Surgical History Previous section Previous section Social History Smoking Status: Never smoker History 4 Elective abortions Hx Para 3 Spontaneous abortions Hx # Term Pregnancies 3 Ectopic pregnancies Hx # Pregnancies Multiple births # of living children 3 Vital Signs Vital Signs Vital Signs: 05/17/21 05:33 Temperature 97.8 F Temperature Source Temporal Pulse Rate 93 Respiratory Rate 18 Blood Pressure 134/77 H Blood Pressure Mean 96 Blood Pressure Source Monitor Blood Pressure Position Semi-Fowlers Blood Pressure Location Left Arm Pulse Ox 100 Oxygen Delivery Method Room Air Weight Weight: 119.748 kg Body Mass Index (BMI) 38.9 Physical Exam Const alert, oriented x3 and no apparent distress HEENT normocephalic Resp normal respiratory effort, normal air movement and clear to auscultation bilaterally Cardio regular rate and regular rhythm GI normal to inspection, nondistended, normoactive bowel sounds, soft to palpation, non-tender and non-distended Inspection: gravid Labs Labs Labs: Blood Type O POSITIVE Antibody Screen NEGATIVE Hct 33.3 % (37-47) L Hgb 11.0 g/dL (12.0-15.0) L Syphilis Total Ab Non-reactive Rubella IgG Antibody Equiv (Nonreactive) Hep Bs Antigen Non-Reactive (Nonreactive) Neisseria gonorrhoeae DNA (NOE) Negative (Negative) HIV 1&2 Antibody Non-Reactive (Nonreactive) C.trachomatis DNA (PCR) Negative (Negative) Glucose 1 Hr 50 gm 128 mg/dL (70-140) Group B Strep DNA Negative (Negative) Rhogam given: No Assessment & Plan (1) : QUALIFIERS: Weeks of gestation: 39 weeks Qualified Code(s): Z3A.39 - 39 weeks gestation of PLAN: Proceed with repeat section (2) Encounter for sterilization: PLAN: Patient desires to proceed Reviewed permanence, alternatives, risks, benefits, efficacy Plan bilateral salpingectomy
--- NOTE | 2021-05-17 08:39 | OP.PCM_ITS ---
Assessment & Plan (1) delivery delivered: (2) Encounter for sterilization: Maternal Data Information LOR Calculator Estimated Delivery Date Method Current WG Current Estimate 05/23/21 Ultrasound #1 39w 1d Details Operative Information Date of Procedure: 05/17/21 Pre-Operative Diagnosis: 1. 39-1/7 weeks gestation 2. 3 prior sections 3. Desires tubal sterilization Post-Operative Diagnosis: 1. 39-1/7 weeks gestation 2. 3 prior sections 3. Desires tubal sterilization Indications for : Repeat Elective and Desires elective sterilization Classification: Scheduled Procedure Type: low transverse pediatric orthodontist #1: Steven De La Rosa Type of Anesthesia: Spinal Anesthesiologist: Raciel Rendon Antibiotic Given: Ancef 3 grams IV x1 Drain: Burr to straight drain Estimated Blood Loss: 1000 ml Fluids Replaced: 1200 ml Findings Description of Procedure: Indications: 25-year-old 4 para 3-0-0-3 presents at 39 1/7 weeks gestational age for scheduled repeat and tubal sterilization. She has history of 3 prior sections and did not desire further childbearing. She is counseled regarding procedural risks, benefits, indications and alternatives and opted to proceed. Procedure: The patient was taken to the operating room and spinal analgesia was administered. She is placed in a dorsal supine position with left lateral tilt. The perineum and abdomen were prepped and draped in sterile fashion. And the spinal was found to be adequate. A Pfannenstiel incision was made using a scalpel and brought down to incise the subcutaneous tissue and rectus fascia at the midline. Subcutaneous tissue was bluntly dissected off the fascia laterally. The fascial incision was dissected laterally and cephalad using curved [place] scissors. The superior leaflet of the rectus fascia was grasped using Lupe clamps and bluntly dissected and sharply dissected from the underlying rectus muscle. In a similar fashion the inferior rectus fascia was dissected from the underlying muscle. The rectus muscles were bluntly at the midline. The peritoneum was identified and entered [sharply]. An Dequan O retractor was placed into the abdomen. The vesicouterine peritoneal fold identified. The fold was incised and a bladder flap created. Bladder blade was then repositioned to the abdomen. A low transverse hysterotomy was made using the [Metzenbaum scissors] to level of the membranes. The hysterotomy was extended bluntly cephalad and caudad. The membranes were then ruptured revealing clear fluid. The head was elevated and brought to the level of the hysterotomy and the infant delivered revealing vigorous [male] infant. The cord was doubly clamped and cut after 30 seconds. The was passed to awaiting [nursery personnel]. The placenta was [expressed] from the uterus and appeared intact on inspection. The uterus was exteriorized and cleared of debris. The hysterotomy was then repaired using 0 Vicryl running lock suture. A second imbricating layer was also placed for additional hemostasis. The right tubal fimbria was identified. Right salpingectomy was performed using the LigaSure device to transect the tube from the mesosalpinx to the level of the uterine cornua. In similar fashion the left tube and fimbria was identified and left salpingectomy was performed. The right hysterotomy apex was reinforced using 0 Vicryl mattress suture with good hemostasis. The denuded serosa of the anterior left uterus continue to bleed despite electrocoagulation. Thus a baseball stitch using 2-0 Vicryl was placed here with hemostasis obtained. The uterus and adnexa were returned to the abdomen and immediately I noted bleeding localized to the right adnexa. The uterus and adnexa a were exteriorized and it appeared that the right tubal pedicle had ruptured. This area was grasped using Iram clamps and suture ligated with 0 Vicryl with excellent hemostasis obtained. The posterior cul-de-sac was cleared and suctioned. The uterus and adnexa were again returned to the abdomen. The anterior cul-de-sac was cleared of debris. Ely was placed atop the first hysterotomy repair. The peritoneum was reapproximated using 2-0 Vicryl running suture. The rectus fascia was closed using 0 Vicryl running suture. The subcutaneous tissue was reapproximated using 2-0 Vicryl in 2 layers. The skin was closed using 4-0 Monocryl subcuticularly by the SENIOR SQL SERVER DEVELOPER under my supervision. Mepilex silver occlusive dressing was placed over the incision. The fundus was firm. The patient was then transferred to the recovery room without complication. Sponge, instrument, and needle counts were correct ?2. weight: 9 pounds 8 ounces Presentation: Positive for Vertex Amniotic Membrane Rupture Type: Artificial Amniotic Fluid Description: Clear Placental Delivery Description: Spontaneous Placenta Disposition: [facility] Cord Vessel Description: 3 Vessels Cord Entanglement: Around neck x 2, loose Nuchal Cord Compression: Without compression Infant A Gender: Male (1 minute): 8 (5 minute): 9 Delayed Cord Clamping: Yes Complications Risks of Surgery Discussed w/Patient: Bleeding, Anesthesia Risks, Infection, Ne ed for Future C-Sections, Permanency, Failure Rate of 1 to 2%, Injury to surrounding structure(s) including bowel and bladder, Availability of other non- permanent control options and -
[2021-05-17] MEDS: Oxytocin 30 units/NS 500 ml 30 UNITS/500 ML IV.SOLN 167 UNITS IV (09:00)
[2021-05-17] MEDS: Ketorolac 30 MG/ML Syringe IV ×3 (09:31→21:32)
[2021-05-17] MEDS: Lactated Ringers 1,000 ML 100 ML IV ×2 (12:05→22:16)
[2021-05-17] MEDS: Cefazolin 1 GM/50 ML BAG IV (15:23)
[2021-05-17] MEDS: Heparin Injection (Vial) 5,000 UNIT/ML VIAL 5000 UNIT SC (16:15)
--- NOTE | 2021-05-17 19:28 | NURSING ---
1899 dr clay maria made aware urine output 300 cc over 8 hours- ivf bolus ordered
[2021-05-17] MEDS: Lactated Ringers 500 ML 999 ML IV (20:00)
[2021-05-17] MEDS: Sertraline 50 MG Tablet PO (21:32)
[2021-05-18] MEDS: Cefazolin 1 GM/50 ML BAG IV (00:01)
[2021-05-18 00:45] VITALS: BP 103/55; PULSE 78; RESP 16; TEMP 36.6
[2021-05-18] MEDS: Heparin Injection (Vial) 5,000 UNIT/ML VIAL 5000 UNIT SC (04:43)
[2021-05-18] MEDS: Ketorolac 30 MG/ML Syringe IV (04:44)
[2021-05-18] MEDS: 0.9% Saline Lock 10 ML Syringe IV (04:44)
[2021-05-18 04:52] VITALS: BP 133/84; PULSE 97; RESP 16; TEMP 36.6; O2SAT 96
[2021-05-18 06:08] LABS: Hematocrit 33.5 % (37-47); Mean Corp Hgb Conc 32.8 g/dL (32-36); Mean Corpuscular Hgb 27.4 pg (27.0-32.0); Mean Corpuscular Volume 83.3 fL (81-99); Mean Platelet Vol. 10.8 fl (6.2-12.0); Platelet Count 166 K/mm3 (150-450); RBC Distribution Width CV 15.1 % (11.6-14.6); RBC Distribution Width SD 46.3 fl (35.1-43.9); Red Blood Count 4.02 M/mm3 (4.2-5.4); White Blood Count 11.1 K/mm3 (4.4-11.0)
[2021-05-18 08:45] VITALS: BP 115/73; PULSE 100; RESP 16; TEMP 36.4; O2SAT 94
--- NOTE | 2021-05-18 09:11 | PCM.PN.OB ---
Subjective Subjective Pain controlled, OOB, ambulating, no flatus yet. Tolerates PO. Denies heavy lochia. , working on latch. Desires discharge to home today. Objective Data Objective Data Vital Signs: Vital Signs Temp Pulse Resp BP Pulse Ox 98 F 97 16 133/84 H 96 05/18/21 04:52 05/18/21 04:52 05/18/21 04:52 05/18/21 04:52 05/18/21 04:52 Oxygen Delivery Method Room Air Weight: 119.748 kg Body Mass Index (BMI) 38.9 Intake & Output: Intake and Output for Last 24 Hours 05/16/21 05/17/21 05/18/21 23:59 23:59 23:59 Intake Total 3695 / 3695 298.33 / 298.33 Output Total 550 / 550 1800 / 1800 Balance 3145 / 3145 -1501.67 / -1501.67 Lab / Micro Data Result Diagrams: 05/18/21 06:00 Labs: Laboratory Results - last 24 hr 05/18/21 06:00: WBC 11.1 H, RBC 4.02 L, Hgb 11.0 L, Hct 33.5 L, MCV 83.3, MCH 27.4, MCHC 32.8, RDW Std Deviation 46.3 H, RDW Coeff of Yannick 15.1 H, Plt Count 166, MPV 10.8 Physical Exam Const alert, oriented x3 and no apparent distress Resp normal respiratory effort, normal air movement and clear to auscultation bilaterally Cardio regular rate, regular rhythm, S1 normal heart sound and S2 normal heart sound GI normal to inspection, nondistended, normoactive bowel sounds, soft to palpation, non-tender and non-distended GI Narrative: incisional dressing c/d/i Manual OB Exam: other lochia scant Uterus Palpation: uterus fundus firm Extremity no calf tenderness Assessment & Plan (1) delivery delivered: PLAN: Rh positive Routine postop care - support Will consider d/c home this afternoon if infant discharged (2) Encounter for sterilization:
--- NOTE | 2021-05-18 09:16 | PCM.DC ---
Discharge Instructions Diet Discharge Diet: No restrictions Activity Discharge Activity: Return to Normal Activity and May Shower May resume sexual activity in: 4-6 weeks Lifting Restrictions: 10 lb Dressing / Incision Call your doctor if you observe: Using more than 1 pad per hour, Shortness of breath, Chest pain, Calf discomfort, Uncontrolled pain and - (Persistent or severe headache) Suture Line Care: Avoid Pulling/Pushing Remove Dressing in: 4 days Cleanse incision/area with: Soap & Water Follow Up Care Please Follow Up With: Ifrah Cruz MD When: 2 weeks for incision check 6 weeks for visit Test Results: Test results from this visit will be discussed in further detail at your follow-up appointment, if applicable. Discharge Plan Admission Admit Date/Time: 05/17/21 05:10 Primary Reason for Your Visit: delivery, Tube removal (sterilization) Attending Provider: Ifrah Cruz Primary Care Provider: Emy Mason Discharge Orders/Prescriptions Prescriptions: New ibuprofen 600 mg Tablet 600 mg PO Q8H PRN PRN (Reason: pain) Qty: 30 RF: 0 oxycodone 5 mg Tablet 5 mg PO Q6H PRN PRN (Reason: Pain Score 4-10) 3 Days Qty: 10 RF: 0 Continued Multi 1 EACH tablet 1 ea PO DAILY RF: 0 sertraline 50 mg tablet 50 mg PO DAILY RF: 0 Referrals / Follow Up: Emy Mason MD [Primary Care Provider] - Disposition Disposition (needs filled in before D/C Order can be placed): Home, Self Care
[2021-05-18] MEDS: Ibuprofen 600 MG Tablet PO ×2 (10:25→15:59)
[2021-05-18 12:45] VITALS: BP 123/76; PULSE 90; RESP 16; TEMP 36.5; O2SAT 95
[2021-05-18] MEDS: oxyCODONE 5 MG Tablet PO (15:24)
[2021-05-18 15:48] LABS: Pathology Specimen OB SEE PATHOLOGY REPORT
--- NOTE | 2021-05-18 16:00 | NURSING ---
dr clay maria called to verify dc order to home- obtained verbal on the phone- notified of pts PHQ of 21 but denied any thoughts of hurting herself or others- dr trupti maria increasing Zoloft to 100 mg will send script to pts pharmacy and pt has a follow up appointment in 2 weeks but may call sooner if experiences worsening symptoms
[2021-05-18 16:04] VITALS: BP 123/76; PULSE 90; RESP 16; TEMP 36.5; O2SAT 95
== END 2021-05-18 16:30 | disposition home or self-care (01) | DRG 785 ==
PROVIDERS: Admitting Provider Obstetrics & Gynecology; PCP Student in an Organized Health Care Education/Training Program; Referring Provider Obstetrics & Gynecology; Visit Provider Obstetrics & Gynecology
PROC: 10D00Z1 Extraction of Products of Conception, Low, Open Approach (ICD-10-PCS; CPT 59514; principal; 2021-05-17 07:15)
DX: O34.211 Maternal care for low transverse scar from previous cesarean delivery (principal); F32.A Depression, unspecified; F41.9 Anxiety disorder, unspecified; O99.344 Other mental disorders complicating childbirth; O69.81X0 Labor and delivery complicated by cord around neck, without compression, not applicable or unspecified; Z30.2 Encounter for sterilization; Z37.0 Single live birth; Z3A.39 39 weeks gestation of pregnancy; Z87.59 Personal history of other complications of pregnancy, childbirth and the puerperium
CPT/HCPCS: 36415; 59050; 85025; 85027; 86850; 86900; 86901; 88302; 99218; J7120; A4216; G0378; J2405

== ENCOUNTER 2021-06-20 16:46 | Outpatient (CLI) | payer BC, MEDICAID, SELFPAY ==
--- NOTE | 2021-06-20 16:58 | MRI_ITS ---
STUDY: MRI BRAIN WITHOUT CONTRAST REASON FOR EXAM: Female, 25 years old. MIGRAINE TECHNIQUE: Standardized multiplanar fat and water weighted pulse sequences were obtained. COMPARISON: MRI of the brain dated January. Head CT dated March 22, 2021 FINDINGS: Normal size of the ventricles and extra-axial spaces for the patient''s age. There are a limited number of small white matter hyperintensities, distributed throughout the deep white matter tracts of the cerebral hemispheres, consistent with mild chronic white matter ischemic changes. There is no evidence for recent intracranial ischemia or other cause of cytotoxic edema on diffusion weighted imaging (DWI). Normal T2* images of the brain without demonstrated susceptibility artifact. There is no demonstrated hemosiderin stain. There are no white matter hyperintensities. Specifically, there are no focal areas of white matter gliosis which are occasionally associated with vasospastic migraine headaches. Normal bilateral basal ganglia. Normal thalami. There is no extra-axial fluid accumulation. Normal flow voids within the major intracranial circulation suggesting patency by spin echo criteria. Normal sella turcica, pituitary gland, infundibular stalk, optic chiasm and hypothalamus. Normal tectal plate and pineal gland. Normal midbrain, my and medulla. Normal cerebellum. Normal basal cisterns. Normal bilateral temporal bones. Normal bilateral internal auditory canals. No demonstrated orbital abnormality, within the constraints of a routine brain study. Normal visualized paranasal sinuses. Normal calvarium and skull base. Normal visualized soft tissue structures. Normal visualized upper cervical spine. MRI/Brain without Contrast IMPRESSION: Normal unenhanced MRI of the brain. Electronically Signed: Krishna Hurley MD at 13:38 EDT ,
== END 2021-06-20 23:59 | disposition home or self-care (01) ==
LOC: MRI 16:46
PROVIDERS: PCP Student in an Organized Health Care Education/Training Program; Visit Provider Psychiatry & Neurology Neurology
DX: G43.909 Migraine, unspecified, not intractable, without status migrainosus (principal)
CPT/HCPCS: 70551

== ENCOUNTER → 2021-07-12 | Outpatient (CLI) | payer BC, MEDICAID, SELFPAY ==
[2021-07-21 10:38] LABS: HPV APTIMA, High Risk Positive (Negative)
[2021-07-21 10:39] LABS: HPV Reflexed? YES, CHARGE PATIENT
== END | disposition home or self-care (01) ==
LOC: LABSPEC 07-13 13:32
PROVIDERS: PCP Student in an Organized Health Care Education/Training Program; Visit Provider Obstetrics & Gynecology
DX: Z12.4 Encounter for screening for malignant neoplasm of cervix (principal)
CPT/HCPCS: 87624; 88175; G0145

== ENCOUNTER → 2021-08-11 | Outpatient (CLI) | payer BC, MEDICAID, SELFPAY | END | disposition home or self-care (01) | LOC: LABSPEC 16:34 | PROVIDERS: PCP Student in an Organized Health Care Education/Training Program; Visit Provider Otolaryngology Otolaryngology/Facial Plastic Surgery | DX: J03.90 Acute tonsillitis, unspecified (principal) | CPT/HCPCS: 87070; 87077 ==

== ENCOUNTER 2023-07-12 22:39 | Emergency (ER) | payer OTHER, MEDICAID, SELFPAY ==
[2023-07-12 22:42] VITALS: BP 143/82; PULSE 111; RESP 22; TEMP 37.4; O2SAT 100
--- NOTE | 2023-07-12 23:09 | CT_ITS ---
INDICATION: altered mental status EXAMINATION: CT BRAIN - CT Head or Brain W/O Contrast Injection TECHNIQUE: Multiple axial images were obtained of the head without intravenous contrast. A radiation dose optimization technique was used for this scan. IV Contrast dosage and agent: None. COMPARISON: 03/22/2021 FINDINGS: BRAIN PARENCHYMA: No intra- or extra-axial hemorrhage. No evidence of acute infarct. No intracranial mass or mass effect. There is preservation of the hayden/white matter interface. Posterior fossa structures are unremarkable. CSF SPACES: Appropriate for age. No hydrocephalus. Basal cisterns are patent. CALVARIUM, SKULL BASE, PARANASAL SINUSES AND MASTOID AIR CELLS: Clear. No discrete lytic or blastic abnormalities. ORBITS: Both globes, extraocular muscles, optic nerves and retrobulbar fat appear unremarkable. CT/Brain/Head without Contrast IMPRESSION: No acute intracranial findings or significant change from the prior study. Electronically Signed: Marcel Hurtado MD at 0:26 EDT ,
--- NOTE | 2023-07-12 23:11 | EKG12_ITS ---
Test Reason : DYSRHYTHMIA Blood Pressure : / mmHG Vent. Rate : 102 BPM Atrial Rate : 102 BPM P-R Int : 152 ms QRS Dur : 096 ms QT Int : 324 ms P-R-T Axes : 029 -05 011 degrees QTc Int : 422 ms Sinus tachycardia Minimal voltage criteria for LVH, may be normal variant ( R in aVL ) Borderline ECG Confirmed by JADIEL BE, SHAY ([id number]), editor department HAJA GUTIERREZ ([id number]) on 07/13/2023 10:29:57 AM Referred By: Confirmed By:SHAY DUVALL MD
[2023-07-12 23:30] VITALS: BP 143/84; PULSE 100; RESP 18; O2SAT 99
[2023-07-12 23:35] LABS: Mucous, Urine 0 SEEN /hpf (<or=2+)
--- NOTE | 2023-07-12 23:38 | RAD_ITS ---
INDICATION: chest pain EXAMINATION/TECHNIQUE: X-RAY - portable upright AP chest x-ray COMPARISON: None. FINDINGS: LINES/DEVICES: None. LUNGS: No consolidation, edema or effusion. No pneumothorax. MEDIASTINUM AND CARDIOVASCULAR STRUCTURES: Cardiac silhouette not enlarged. Central airways and mediastinal contour are unremarkable. BONES AND SOFT TISSUES: Unremarkable. RAD/Chest 1 View (Portable) IMPRESSION: No radiographic evidence of acute cardiopulmonary disease. Electronically Signed: Marcel Hurtado MD at 0:26 EDT ,
[2023-07-12 23:39] LABS: Absolute Lymphocyte Count 0.98 X10^3/uL (0.83-4.51); Absolute Neutrophil Count 11.3 X10^3/uL (2.0-7.7); Basophil# 0.04 X10^3/uL; Basophil% 0.3 % (0-1); Eosinophil# 0.03 X10^3/uL; Eosinophils% 0.2 % (0-5); Hematocrit 41.8 % (37-47); Hemoglobin 13.1 g/dL (12.0-15.0); Lymphocyte # 0.98 X10^3/ul (0.83-4.51); Lymphocyte % 7.5 % (19-41); Mean Corp Hgb Conc 31.3 g/dL (32-36); Mean Corpuscular Hgb 25.9 pg (27.0-32.0); Mean Corpuscular Volume 82.8 fL (81-99); Mean Platelet Vol. 10.7 fl (6.2-12.0); Monocyte# 0.61 X10^3/uL; Monocyte% 4.7 % (0-10); NRBC Flagged by Analyzer 0 % (0-5); Neutrophil # 11.32 X10^3/uL (2.7-7.7); Platelet Count 247 K/mm3 (150-450); RBC Distribution Width CV 13.7 % (11.6-14.6); RBC Distribution Width SD 41.3 fl (35.1-43.9); Red Blood Count 5.05 M/mm3 (4.2-5.4)
[2023-07-12 23:40] LABS: Color, Urine Yellow (Yellow); Glucose, Dipstick Normal (Normal); Ketone-Dipstick Negative (Negative); Leukocyte Esterase-Dipstick 25 /ul (Negative); Nitrite-Dipstick Negative (Negative); Occult Blood-Urine 25 /ul (Negative); Protein-Dipstick Negative (Negative); Urine Bilirubin Dipstick Negative (Negative); Urine Clarity Clear (Clear); Urine Urobilinogen Normal (Normal)
[2023-07-12 23:43] LABS: Internal QC Validated? YES +Cl - CLEAR BKGD; Pregnancy, Urine Negative Negative
[2023-07-12 23:50] LABS: Bacteria 1+ /hpf (None Seen); Red Blood Cells-Urine 0-5 SEEN /hpf (0-5); Squamous Epithelial Cells - UA 0-5 SEEN /hpf (5-10); White Blood Cells 0-5 SEEN /hpf (0-5)
[2023-07-13] VITALS: BP 132/83; PULSE 105; RESP 22; O2SAT 97
[2023-07-13] MEDS: 0.9% Normal Saline (1000mL) 1,000 ML 999 ML IV (00:02)
[2023-07-13 00:06] VITALS: BMI 40.8
[2023-07-13 00:08] LABS: AST(SGOT) 14 U/L (15-37); Alanine Aminotransfer ALT/SGPT 16 U/L (13-56); Albumin, Serum 3.4 g/dL (3.2-5.0); Alkaline Phosphatase 97 U/L (45-117); Anion Gap 6 (5-15); BUN 12 mg/dL (7-18); BUN/Creat Ratio 11.9 RATIO (10-20); Bilirubin, Direct 0.14 mg/dL (0.00-0.30); Chloride 106 mmol/L (98-107); Creatinine, Serum 1.01 mg/dL (0.55-1.02); EST Glomerular Filtration Rate 71 mL/min (>60); Est Glom Filt Rate - Afr Amer 85 mL/min (>60); Estimated Creatinine Clearance 120.82 ml/min; Globulin 4.3 g/dL (2.2-4.2); Glucose 121 mg/dL (74-106); Magnesium 1.6 mg/dL (1.6-2.6); Potassium 3.8 mmol/L (3.5-5.1); Protein, Total 7.7 g/dL (6.4-8.2); Sodium Level 137 mmol/L (136-145); Thyroid Stim Hormone (TSH) 0.35 uIU/mL (0.358-3.74); Troponin-I HS < 3 pg/mL (3.0-54.0)
[2023-07-13 01:00] VITALS: PULSE 102; RESP 25; O2SAT 99
--- NOTE | 2023-07-13 01:54 | EX.ED.DYSGE1 ---
HPI History of Present Illness Chief Complaint: Chest Pain Informant: patient and spouse/S.O. Narrative Narrative: Patient is a 27-year-old female with past medical history of anxiety/depression as well as migraine headache. Reportedly she is only been drinking lemonade for the week and today went on a walk or 2 because of the nicer weather. states he went to play golf and when he returned home he found her lying in bed but she was difficult to arouse. They state they went to another facility where they waited for multiple hours in the waiting room and then decided to come to [facility] as they were not being seen. Patient denies any recent trauma and she denies any licit drugs or alcohol use. However because of her persistent fatigue and stating she was altered mental at home she was brought in for evaluation [facility] Medical History Anxiety Depression Gestational diabetes Headache Migraines depression Home Medications vit 122-ferrous fumarate 27 mg iron-folic acid 800 mcg tablet ( Multi) 1 ea PO DAILY 03/05/17 [History Last Taken 05/16/21 08:00] sertraline 50 mg tablet 50 mg PO DAILY anxiety/depression 05/17/21 [History Last Taken Unknown] ibuprofen 600 mg tablet 600 mg PO Q8H PRN PRN pain #30 tabs 05/18/21 [Rx Last Taken Unknown] oxycodone 5 mg tablet 5 mg PO Q6H PRN PRN Pain Score 4-10 3 days #10 tabs 05/18/21 [Rx Last Taken Unknown] nystatin 100,000 unit/gram topical cream 1 applic topical BID #30 grams 06/22/21 [Rx Last Taken Unknown] Allergy/AdvReac Type Severity Reaction Status Date / Time acetaminophen [From Tylenol] Allergy Swelling Verified 07/12/23 22:41 Surgical History Previous section Previous section Social History Smoking Status: Never smoker ROS ROS ED Constitutional Constitutional ED: Denies chills or fever(s) Eyes Eyes: Denies change in vision ENT ENT ED: Denies sore throat Cardiovascular Cardiovascular: Reports chest pain; Denies palpitations or racing heartbeat Respiratory/Chest Respiratory/Chest: Denies cough or dyspnea Gastrointestinal Gastrointestinal: Reports nausea; Denies abdominal pain, diarrhea or vomiting Genitourinary Genitourinary ED: Denies dysuria, hematuria or urinary frequency Musculoskeletal Musculoskeletal: Reports myalgias Integumentary Denies rash Neurologic Neurologic: Reports weakness; Denies headache(s) or paresthesias Psychiatric Psychiatric: Reports anxiety and depression; Denies suicidal ideation or suicidal thoughts Hematologic/Lymphatic Hematologic/Lymphatic: Denies easy bleeding or easy bruising EXAM Physical Exam Const Vital Signs: 07/12/23 22:42 07/12/23 23:03 07/12/23 23:30 Temperature 99.4 F H Temperature Source Temporal Pulse Rate 111 H 100 Respiratory Rate 22 H 18 Respiratory Effort Normal Non-Labored Blood Pressure 143/82 H 143/84 H Blood Pressure Mean 102 103 Pulse Ox 100 99 Oxygen Delivery Method Room Air Room Air 07/13/23 00:00 07/13/23 01:00 07/13/23 02:00 Temperature 99.4 F H Temperature Source Pulse Rate 105 H 102 H 110 H Respiratory Rate 22 H 25 H 18 Respiratory Effort Blood Pressure 132/83 H 115/90 H Blood Pressure Mean 97 98 Pulse Ox 97 99 92 Oxygen Delivery Method Positive well nourished, well developed and obese General Appearance ED: well developed; Negative for pallor Nutritional Appearance: obese HEENT Reports dry mucous membranes HEENT Narrative: Mucous membranes are dry and tacky without tongue or lip swelling oral lesions airway edema or compromise No secondary findings in the posterior pharynx to suggest infection Mouth ED: Yes dry mucous membranes Mouth: dry mucous membranes Eyes PERRL and EOMs intact bilaterally General Eye ED: Negative for scleral icterus Neck supple Neck Narrative: No nuchal rigidity or meningeal signs Chest Wall Chest Narrative: There is reproducible anterior chest wall pain along the costal margins that patient states is the same pain she has been experiencing No bony deformity or crepitance palpated Resp normal respiratory effort and clear to auscultation bilaterally Cardio regular rhythm Rate: tachycardic and other Other Details: Tachycardic rate with regular rhythm No murmurs rubs or gallops Radial and carotid pulses are equal and symmetric GI normal to inspection, nondistended, normoactive bowel sounds, non-tender, non-distended and no masses GI Narrative: No pulsatile mass or fluid wave noted No rigidity or peritoneal signs Auscultation: normoactive bowel sounds Palpation: soft Extremity normal to inspection Extremity Narrative: No asymmetric edema no pitting edema negative Homans' sign bilaterally Neuro oriented x3, CN's II-XII intact bilaterally and no sensory deficits noted Neuro Narrative: GCS of 15 Cranial nerves II through XII are grossly intact without focal neurologic deficit No pronator drift no dysmetria no truncal ataxia NIH stroke scale score of 0 Sensorium / Orientation: alert Motor Exam: strength 5/5 throughout Psych Psych Narrative: Patient has a depressed/flat affect Skin no rashes or lesions noted and no wounds Skin Narrative: Skin turgor slightly increased General Skin Exam: Negative for jaundice or pallor MDM MDM MDM Narrative Medical decision making narrative: Patient presented to the ER with low-grade fever and tachycardia. She had a flat affect but was awake and alert with normal neurologic exam and no focal deficit. Differential diagnosis for her increased fatigue and reported altered mental status could be dehydration versus acute kidney injury versus electrolyte abnormality there is also concern for spontaneous brain bleed such as epidural subdural or subarachnoid hemorrhage versus mass. With a low-grade temperature there is concern for UTI versus pneumonia versus upper respiratory tract infection from COVID versus influenza versus RSV. Basic labs were obtained which showed mild leukocytosis but otherwise no signs of SHAVON or severe electrolyte abnormality. Patient's EKG was technically sinus tachycardia with a mildly elevated heart rate of approximate 105 but troponin was negative going against acute coronary syndrome or myocarditis. The patient has no risk factors for DVT/PE but because of her chest pain and tachycardia a D-dimer was obtained this is technically elevated at 0.50 this is 0.01 above the cutoff for normal and as the patient does not have physical exam or risk factors concerning for DVT/PE I do not feel there is a need for a CTA. This reasoning was discussed with the patient and family and they are agreeable to it. After receiving IV fluids patient reported feeling better and therefore with overall negative workup and patient maintaining a normal neurologic exam with no deficits as well as a normal CT scan she is otherwise safe for discharge and can follow-up on an outpatient basis History & Record Review Discussion w/independent historian: Patient and Family Lab Data Attestation: I reviewed the patient's lab results. Labs: Laboratory Results - last 24 hr 07/12/23 23:20 WBC 13.0 H RBC 5.05 Hgb 13.1 Hct 41.8 MCV 82.8 MCH 25.9 L MCHC 31.3 L RDW Std Deviation 41.3 RDW Coeff of Yannick 13.7 Plt Count 247 MPV 10.7 Immature Gran % (Auto) 0.300 Neut % (Auto) 87.0 H Lymph % (Auto) 7.5 L [place] % (Auto) 4.7 Eos % (Auto) 0.2 Baso % (Auto) 0.3 Absolute Neuts (auto) 11.3 H Absolute Lymphs (auto) 0.98 Nucleated RBC % 0 D-Dimer Quant (PE/DVT) 0.50 H Sodium 137 Potassium 3.8 Chloride 106 Carbon Dioxide 25.0 Anion Gap 6 BUN 12 Creatinine 1.01 Estim Creat Clear Calc 120.82 Est GFR (MDRD) Af Amer 85 Est GFR (MDRD) Non-Af 71 BUN/Creatinine Ratio 11.9 Glucose 121 H Calcium 9.0 Magnesium 1.6 Total Bilirubin 0.50 Direct Bilirubin 0.14 AST 14 L ALT 16 Alkaline Phosphatase 97 Ammonia 16.0 Troponin I High Sens < 3 L Total Protein 7.7 Albumin 3.4 Globulin 4.3 H TSH 0.35 L Urine Color Yellow Urine Clarity Clear Urine pH 8.0 Ur Specific [place] 1.010 Urine Protein Negative Urine Glucose (UA) Normal Urine Ketones Negative Urine Occult Blood 25 H Urine Nitrite Negative Urine Bilirubin Negative Urine Urobilinogen Normal Ur Leukocyte Esterase 25 H Urine RBC 0-5 SEEN Urine WBC 0-5 SEEN Ur Squamous Epith Cells 0-5 SEEN Urine Bacteria 1+ Urine Mucus 0 SEEN Urine Test Negative Radiography Diagnostic Testing: Clinical Impression(s) from Imaging Studies Brain CT 07/12/23 23:09 IMPRESSION: No acute intracranial findings or significant change from the prior study. Electronically Signed: Marcel Hurtado MD at 0:26 EDT , Chest X-Ray 07/12/23 23:38 IMPRESSION: No radiographic evidence of acute cardiopulmonary disease. Electronically Signed: Marcel Hurtado MD at 0:26 EDT , Chest x-ray as interpreted by the emergency medicine physician reveals no acute infiltrate pneumothorax or pleural effusion Discharge Plan Triage Chief Complaint: Chest Pain ED Provider: Efrain Zaidi Dx/Rx/DC Orders Clinical Impression: Dehydration, Anxiety and depression, Acute costochondritis Instructions: Dehydration Prescriptions: No Action nystatin 100,000 unit/gram cream 1 applic topical BID Qty: 30 1RF Rx Instructions: Apply to area twice daily for up to 2 weeks Multi 1 EACH tablet 1 ea PO DAILY sertraline 50 mg tablet 50 mg PO DAILY ibuprofen 600 mg Tablet 600 mg PO Q8H PRN PRN (Reason: pain) Qty: 30 0RF oxycodone 5 mg Tablet 5 mg PO Q6H PRN PRN (Reason: Pain Score 4-10) 3 Days Qty: 10 0RF Primary Care Provider: Care Physician,No Primary Referrals: Duane Clayton MD [Med Staff - Active Staff] - Care Physician,No Primary [Primary Care Provider] - Activity Restrictions/Additional Instructions: Please keep yourself well-hydrated and return to the ER should you have any further concerns or worsening of symptoms Disposition Disposition: Home, Self Care Discharge Date/Time: 07/13/23 02:17
[2023-07-13 02:00] VITALS: BP 115/90; PULSE 110; RESP 18; TEMP 37.4; O2SAT 92
== END 2023-07-13 02:17 | disposition home or self-care (01) ==
PROVIDERS: Emergency Provider Emergency Medicine; Visit Provider Emergency Medicine
DX: E86.0 Dehydration (principal); F41.9 Anxiety disorder, unspecified; M94.0 Chondrocostal junction syndrome [Tietze]; F32.A Depression, unspecified; E66.9 Obesity, unspecified; Z86.718 Personal history of other venous thrombosis and embolism
CPT/HCPCS: 70450; 71045; 80048; 80076; 81001; 81025; 82140; 83735; 84443; 84484; 85025; 85379; 87631; 93005; 96360; 99282; J7030; A4216

== ENCOUNTER 2025-02-24 21:34 | Emergency (ER) | payer SELFPAY ==
[2025-02-24 21:36] VITALS: BP 150/78; PULSE 123; RESP 36; TEMP 38.1; O2SAT 100; BMI 39.9
[2025-02-24 21:45] VITALS: BP 127/78; PULSE 117; RESP 20; TEMP 38.1; O2SAT 100
--- NOTE | 2025-02-24 21:47 | EX.ED.DYSGE1 ---
HPI <Dr. Surinder Burton, DO - Last Filed: 03/02/25 19:07> History of Present Illness Chief Complaint: Shortness of Breath PFSH <Dr. Surinder Burton, DO - Last Filed: 03/02/25 19:07> PFSH Medical History Anxiety Depression Gestational diabetes Headache Migraines depression Home Medications ?Medication ?Instructions ?Recorded ?Last Taken ?Type ibuprofen 600 mg tablet 600 mg PO Q8H PRN PRN pain #30 tabs 05/18/21 Unknown Rx Allergy/AdvReac Type Severity Reaction Status Date / Time No Known Allergies Allergy Verified 02/24/25 21:39 Surgical History Previous section Previous section Social History Smoking Status: Never smoker EXAM <Dr. Surinder Burton, DO - Last Filed: 03/02/25 19:07> Physical Exam Const Vital Signs: 02/24/25 21:36 02/24/25 21:45 02/24/25 21:45 Temperature 100.6 F H 100.6 F H Temperature Source Oral Oral Pulse Rate 123 H 117 H Respiratory Rate 36 H 20 H Respiratory Effort Short of Breath Labored Accessory Muscle Use Respiratory Depth Respiratory Pattern Tachypnea Blood Pressure 150/78 H 127/78 H Blood Pressure Mean 102 94 Pulse Ox 100 100 Oxygen Delivery Method Room Air Room Air 02/24/25 21:45 02/24/25 21:53 02/24/25 23:00 Temperature 100.1 F H Temperature Source Oral Pulse Rate 99 Respiratory Rate 18 Respiratory Effort Short of Breath Labored Accessory Muscle Use Respiratory Depth Shallow Respiratory Pattern Tachypnea Blood Pressure 129/78 H Blood Pressure Mean 95 Pulse Ox 100 98 Oxygen Delivery Method Room Air Room Air Room Air 02/25/25 00:00 Temperature 100.6 F H Temperature Source Oral Pulse Rate 95 Respiratory Rate 18 Respiratory Effort Respiratory Depth Respiratory Pattern Blood Pressure 113/71 Blood Pressure Mean 85 Pulse Ox 97 Oxygen Delivery Method Room Air <Dr. Efrain Zaidi, DO - Last Filed: 02/25/25 00:42> Physical Exam Const Vital Signs: 02/24/25 21:36 02/24/25 21:45 02/24/25 21:45 Temperature 100.6 F H 100.6 F H Temperature Source Oral Oral Pulse Rate 123 H 117 H Respiratory Rate 36 H 20 H Respiratory Effort Short of Breath Labored Accessory Muscle Use Respiratory Depth Respiratory Pattern Tachypnea Blood Pressure 150/78 H 127/78 H Blood Pressure Mean 102 94 Pulse Ox 100 100 Oxygen Delivery Method Room Air Room Air 02/24/25 21:45 02/24/25 21:53 02/24/25 23:00 Temperature 100.1 F H Temperature Source Oral Pulse Rate 99 Respiratory Rate 18 Respiratory Effort Short of Breath Labored Accessory Muscle Use Respiratory Depth Shallow Respiratory Pattern Tachypnea Blood Pressure 129/78 H Blood Pressure Mean 95 Pulse Ox 100 98 Oxygen Delivery Method Room Air Room Air Room Air 02/25/25 00:00 Temperature 100.6 F H Temperature Source Oral Pulse Rate 95 Respiratory Rate 18 Respiratory Effort Respiratory Depth Respiratory Pattern Blood Pressure 113/71 Blood Pressure Mean 85 Pulse Ox 97 Oxygen Delivery Method Room Air [facility] <Dr. Surinder Burton, DO - Last Filed: 03/02/25 19:07> [facility] Narrative Medical decision making narrative: HISTORY OF PRESENT ILLNESS: Chief complaint: Shortness of breath 29-year-old female presents with 2 days of shortness of breath. She notes symptoms started yesterday and progressed today. She has a history of anxiety, headache, migraines, depression. Patient states she start developing midsternal chest pain yesterday along with a cough. Chest pain is not exertional. Pain is pleuritic. It is not radiating. No bleeding diathesis noted. No sick contacts. No leg swelling. No abdominal pain or vomiting. The patient denies recent surgery in the last 4 weeks or immobilization in the last 3 days, denies previous diagnosis of DVT or PE, hemoptysis, unilateral leg swelling or malignancy with treatment the last 6 months or palliative. No estrogen use noted. Patient denies sudden onset of pain, no tearing sensation, no migratory symptoms, no new numbness, weakness or loss of sensation. Patient denies family history or personal history of Connective tissue disorders (Marfan's Syndrome, Cindy Danlos etc). REVIEW OF SYSTEMS: Pertinent positives: Shortness of breath, cough, CP Pertinent negatives: As per HPI PHYSICAL EXAM: Nursing triage notes reviewed, Vital signs reviewed Constitutional: please see mdm HENT: MMM Eyes: Pupils equal round and reactive to light, Extraocular muscles intact Neck: No stridor, no JVD, full neck ROM Lungs: Clear to auscultation, No wheezing or rales. No increased work of breathing, no conversational dyspnea, no accessory muscle use, no nasal flaring. No respiratory distress noted Heart: Regular rate and rhythm, No murmurs, No rubs and No gallops, 2+ distal pulses (radial, femoral, posterior tibial) in all extremities Abdomen: Soft, there is no tenderness, rigidity, rebound or guarding, no obvious peritoneal signs, no palpable pulsatile abdominal masses, no auscultated abdominal bruit : No CVAT Extremities: No edema Neuro: No new focal neurological deficits, cranial nerves II through XII intact, 5/5 strength in all present extremities. Intact sensation to light touch in all present extremities, 2+ reflexes bilateral patella tendons. Skin: No rash or lesions noted MEDICAL DECISION MAKING: Chief Complaint: please see [facility] External records reviewed: Seen for costochondritis in 2023 Factors affecting care: As per [facility] Social determinants of health: Denies illicit drug use History obtained from others: Family member Consults: none [facility] Narrative: Patient was initially tachycardic with heart rate of 123, tachypneic with respirate 36, temperature was 100.6. Exam without focus in the lungs such as wheezing or rales. No signs of volume overload. No peripheral edema. No stigmata of VTE or aortic dissection initial exam. I considered the following differential diagnosis: Viral URI, pneumonia, I obtained chest x-ray, basic labs viral swab to further determine if the patient was suffering from a life-threatening etiology. Initially resuscitated patient with 1 L normal saline, 1 g of Tylenol and 15 mg IV Toradol for fever and pain control. ALL IMAGES (IF OBTAINED) HAVE BEEN PERSONALLY REVIEWED AND INTERPRETED BY MYSELF. EKG with sinus tachycardia rate of 116, normal axis, no intervals, no STEMI High-sensitivity troponin is negative, no evidence of myocardial ischemia CBC without leukocytosis, severe anemia, no thrombocytopenia. D-dimer elevated concerning for increased clotting specifically PE in the setting of chest pain and shortness of breath BMP without evidence of significant electrolyte abnormalities, no anion gap, no acute kidney injury. High-sensitivity troponin is negative, no evidence of myocardial ischemia CTA shows no pulmonary embolism, pneumonia Awaiting delta troponin Upon reassessment patient's heart rate improved to 99. The patient and/or family, caregivers express understanding. The patient and/or family, caregivers agrees with the plan. Shared decision making: I will have a discussion with the patient and or visitors regarding risk/benefits of further testing or admission. They will be made aware of of the risk/benefits inherent in this decision they will be given the opportunity to voice understanding. Total critical care time today provided was at least 0 minutes. This excludes separately billable procedures. Critical care time (if documented) is secondary to the patient having high probability of clinically significant/life threatening deterioration in the patient's condition which required my urgent intervention. Impression: 1. Chest pain 2. Dyspnea 3. Viral URI Dispo: Pending delta troponin. Signed out to overnight physician. This note was generated with [employer] dictation software. It may contain incorrect words, spelling, and punctuation that were not noted in review of the chart prior to signing. Lab Data Labs: Laboratory Results - last 24 hr 02/24/25 02/24/25 21:50 23:55 WBC 7.5 RBC 4.97 Hgb 13.4 Hct 41.8 MCV 84.1 MCH 27.0 MCHC 32.1 RDW Std Deviation 42.6 RDW Coeff of Yannick 13.8 Plt Count TNP MPV 11.6 Immature Gran % (Auto) 0.400 Neut % (Auto) 82.5 H Lymph % (Auto) 9.5 L [place] % (Auto) 7.2 Eos % (Auto) 0.1 Baso % (Auto) 0.3 Absolute Neuts (auto) 6.2 Absolute Lymphs (auto) 0.71 L Nucleated RBC % 0 Platelet Estimate ADEQUATE D-Dimer Quant (PE/DVT) 0.57 H* Sodium 136 Potassium 4.0 Chloride 100 Carbon Dioxide 22.1 Anion Gap 14 BUN 5 Creatinine 0.91 Estim Creat Clear Calc 130.15 Est GFR (MDRD) Non-Af 89 BUN/Creatinine Ratio 5.0 L Glucose 108 H Calcium 9.3 Troponin T High Sens < 6 Troponin T Hi Sens 2 Hr < 6 Radiography Diagnostic Testing: Clinical Impression(s) from Imaging Studies Chest X-Ray 02/24/25 21:55 IMPRESSION: No evidence of acute cardiopulmonary disease. Reading Location: [id number] Chest CTA 02/24/25 22:35 IMPRESSION: No acute intrathoracic abnormality. No pulmonary arterial emboli identified, although the segmental-subsegmental branches are not adequately evaluated due to suboptimal timing of IV contrast bolus. Reading Location: [facility] <Dr. Efrain Zaidi, DO - Last Filed: 02/25/25 00:42> [facility] Lab Data Labs: Laboratory Results - last 24 hr 02/24/25 02/24/25 21:50 23:55 WBC 7.5 RBC 4.97 Hgb 13.4 Hct 41.8 MCV 84.1 MCH 27.0 MCHC 32.1 RDW Std Deviation 42.6 RDW Coeff of Yannick 13.8 Plt Count TNP MPV 11.6 Immature Gran % (Auto) 0.400 Neut % (Auto) 82.5 H Lymph % (Auto) 9.5 L [place] % (Auto) 7.2 Eos % (Auto) 0.1 Baso % (Auto) 0.3 Absolute Neuts (auto) 6.2 Absolute Lymphs (auto) 0.71 L Nucleated RBC % 0 Platelet Estimate ADEQUATE D-Dimer Quant (PE/DVT) 0.57 H* Sodium 136 Potassium 4.0 Chloride 100 Carbon Dioxide 22.1 Anion Gap 14 BUN 5 Creatinine 0.91 Estim Creat Clear Calc 130.15 Est GFR (MDRD) Non-Af 89 BUN/Creatinine Ratio 5.0 L Glucose 108 H Calcium 9.3 Troponin T High Sens < 6 Troponin T Hi Sens 2 Hr < 6 Radiography Diagnostic Testing: Clinical Impression(s) from Imaging Studies Chest X-Ray 02/24/25 21:55 IMPRESSION: No evidence of acute cardiopulmonary disease. Reading Location: [id number] Chest CTA 02/24/25 22:35 IMPRESSION: No acute intrathoracic abnormality. No pulmonary arterial emboli identified, although the segmental-subsegmental branches are not adequately evaluated due to suboptimal timing of IV contrast bolus. Reading Location: [id number] Treatment and Re-Evaluation Comments:: Patient was signed out to me while awaiting her delta troponin. The initial troponin was less than 6 the delta is less than 6 going against acute coronary syndrome. Therefore CTA reveals no sign of PE dissection or secondary infection and blood work confirms no sign of acute coronary syndrome or viral myocarditis there is no need for further evaluation in the ER and she is otherwise safe for discharge. Discharge Plan Triage Chief Complaint: Shortness of Breath ED Provider: Surinder Burton Dx/Rx/DC Orders Clinical Impression: Pyrexia, Viral syndrome, Nonspecific chest pain Instructions: ED URI, Viral, No Abx (Adult) Prescriptions: No Action ibuprofen 600 mg Tablet 600 mg PO Q8H PRN PRN (Reason: pain) Qty: 30 0RF Primary Care Provider: Care Physician,No Primary Referrals: Duane Clayton MD [Med Staff - Active Staff, [facility]] Activity Restrictions/Additional Instructions: Thank you for trusting us with your care today! Your labs and images did not show signs of pneumonia, COVID, RSV, flu, blood clots, heart attacks or significant abnormalities. Given your fever, shortness of breath and cough are likely suffering from a viral respiratory infection. There is no specific treatment for these types infections that typically resolve in their own with time, Tylenol, ibuprofen, plenty of fluid and rest. Please take Tylenol (2 pills, 650 mg), ibuprofen (2 pills, 400 mg) every 6 hours as needed for pain and fever control. Please return to the emergency department if your symptoms change or worsen. Please follow with your primary care physician for further outpatient evaluation and management. Print Language: Uruguayan Disposition Disposition: Home, Self Care Discharge Date/Time: 02/25/25 00:54
[2025-02-24 21:53] VITALS: O2SAT 100
--- NOTE | 2025-02-24 21:53 | EKG12_ITS ---
Test Reason : DYSRHYTHMIA Blood Pressure : */* mmHG Vent. Rate : 116 BPM Atrial Rate : 116 BPM P-R Int : 146 ms QRS Dur : 84 ms QT Int : 304 ms P-R-T Axes : 40 6 16 degrees QTcB Int : 422 ms Sinus tachycardia Minimal voltage criteria for LVH, may be normal variant ( R in aVL ) Borderline ECG Confirmed by Kareem Kennedy ([id number]), society editor HAJA GUTIERREZ ([id number]) on 02/25/2025 10:27:00 AM Referred By: KAILEE Confirmed By: Kareem Kennedy
--- NOTE | 2025-02-24 21:55 | RAD_ITS ---
PROCEDURE: CHEST 1 VIEW (PORTABLE) 02/24/2025 REASON FOR EXAM: SHORTNESS OF BREATH, COUGH TECHNIQUE: Frontal view of the chest. COMPARISON: 07/12/2023 FINDINGS: Lungs/Pleura: No appreciable focal consolidation, pneumothorax or pleural effusion. Heart/Mediastinum: Within normal limits. Bones/Soft tissues: Unremarkable. RAD/Chest 1 View (Portable) IMPRESSION: No evidence of acute cardiopulmonary disease. Reading Location: [id number]
[2025-02-24 22:04] LABS: Hematocrit 41.8 % (37-47); Hemoglobin 13.4 g/dL (12.0-15.0); Immature Granulocytes Count 0.030 X10^3/uL (0.0-0.0); Mean Corp Hgb Conc 32.1 g/dL (32-36); Mean Corpuscular Volume 84.1 fL (81-99); Mean Platelet Vol. 11.6 fl (6.2-12.0); NRBC Flagged by Analyzer 0 % (0-5); POSITIVE COUNT YES; RBC Distribution Width CV 13.8 % (11.6-14.6); RBC Distribution Width SD 42.6 fl (35.1-43.9); Red Blood Count 4.97 M/mm3 (4.2-5.4); White Blood Count 7.5 K/mm3 (4.4-11.0)
--- OUTSIDE RECORDS SUMMARY | 2025-02-24 22:09 | XMS RPT_ITS | CCD ---
Author Organization [facility] Care Team Providers Care Visual Merchandising Specialist Name Role Phone Dr. Oli Mason Primary Care Provider Dr. Oli Mason Referring Provider Damian STAFF INTERNIST OFFICE BASED ONLYROBERTA Attending Provider [phone] RICHARD MAC MD Primary Care Physician RICHARD MAC MD Primary Care Unavailable PHILLIP LAWRENCE Attending Unavailable Unavailable Primary Care Provider Unavailabl e SELF Referring Unavailable AGATHA AMEZCUA Attending Unavailable ARIZA, LOBO SUMMER Admitting Unavailable ARIZA, LOBO SUMMER Attending Unavailable ARIZA, LOBO SUMMER Primary Care Unavailable ARIZA, LOBO SUMMER Admitting Unavailable ARIZA, LOBO SUMMER Attending Unavailable ARIZA, LOBO SUMMER Primary Care Unavailable ARIZA, LOBO SUMMER Admitting Unavailable ARIZA, LOBO SUMMER Attending Unavailable ARIZA, LOBO SUMMER Primary Care Unavailable OLI MASON MD Consulting Unavailable PROVIDER, UNKNOWN Consulting Unavailable PROVIDER, UNKNOWN Consulting Unavailable ARIZA, LOBO SUMMER Admitting Unavailable ARIZA, LOBO SUMMER Attending Unavailable ARIZA, LOBO SUMMER Primary Care Unavailable Oli Mason Attending Unavailable Care Physician, No Primary Primary Care Unava ilable Allergies Allergy Classification Reported Allergen(s) Allergy Type Date of Onset Reaction(s) Facility (4 sources) Acetaminophen Drug Allergy 06-22-2021 [facility] (1 source) Acetaminophen Drug Allergy [facility] (1 source) Acetaminophen Drug Allergy 07-12-2023 [facility] Medications Current Medications Medication Drug Class(es) Dates Sig (Normalized) Sig (Original) ibuprofen 800 mg oral tablet (5 sources) Nonsteroidal Anti-inflammatory Drug Start: 10-18-2023 take 1 tablet by mouth three times daily as needed for pain ibuprofen (MOTRIN) 800 mg tablet Indications: Tooth abscess Take 1 tablet by mouth three times a day as needed for pain. 21 tablet 0 10/18/2023 Active Start: 05-18-2021 take 600 mg by mouth every eight hours as needed Ibuprofen Active 600 MG PO EVERY 8 HOURS NEEDED May 18, 2021 10:13am nystatin [id number] unt/ml topical cream (4 sources) Polyene Antifungal Start: 06-22-2021 Nystatin Ac tive 1 APPLIC TOPICAL TWICE A DAY June 22, 2021 12:25pm Apply to area twice daily for up to 2 weeks oxyCODONE hydrochloride 5 mg oral tablet (8 sources) Opioid Agonist Start: 05-18-2021 take 5 mg by mouth every six hours as needed Oxycodone Active 5 MG PO EVERY 6 HOURS NEEDED 10 3 May 18, 2021 Start: 02-17-2020 End: 02-22-2020 take 5 mg by mouth every six hours as needed Oxycodone Discontinued 5 MG PO EVERY 6 HOURS NEEDED 20 February 17, 2020 February 22, 2020 1:03am penicillin v potassium 500 mg oral tablet (1 source) Start: 10-18-2023 take 1 tablet by mouth four times daily penicillin V potassium 500 mg tablet Indications: Tooth abscess Take 1 tablet by mouth four times daily. 40 tablet 0 10/18/2023 Active [id number]-Nuam-Dojmn Acid ( Multi) 1 EACH tablet (4 sources) Start: 03-05-2017 take 1 tablet by mouth once daily Fb415-Aaxk-Kkntm Acid ( Multi) 1 EACH tablet Active 1 EACH PO DAILY March 05, 2017 9:55pm Start: 03-05-2017 take 1 tablet by rebeka th once daily Ut309-Tqms-Hnczu Acid ( Multi) 1 EACH tablet Active 1 EACH PO DAILY March 05, 2017 1:00am sertraline 50 mg oral tablet (5 sources) Serotonin Reuptake Inhibitor Start: 05-17-2021 take 50 mg by mouth once daily Sertraline Active 50 MG PO DAILY May 17, 2021 6:13pm take 1 tablet by mouth once christine y sertraline (ZOLOFT) 100 mg tablet Take 100 mg by mouth once daily. 0 Active Completed/Discontinued Medications Medication Drug Class(es) Dates Sig (Normalized) Sig (Original) clotrimazole 10 mg/ml topical cream (4 sources) Azole Antifungal Start: 06-20-2021 End: 06-22-2021 Clotrimazole Discontinued 1 APPLIC TOPICAL TWICE A DAY June 20, 2021 4:36pm June 22, 2021 12:25pm Apply twice daily to area for up to 2 weeks Vitamin D3 (4 sources) Start: 04-20-2017 End: 08-24-2017 Vitamin D3 Discontinued 4000 UNITS April 20, 2017 2:11pm August 24, 2017 2:16pm Start: 04-20-2017 End: 08-24-2017 Vitamin D3 Discontinued 4000 UNITS April 20, 2017 1:00am August 24, 2017 2:16pm Problems Problem Classification Problem Date Documented Da te Episodic/Chronic Contraceptive and procreative management (7 sources) Patient encounter status; Translations: [Encounter for sterilization] Episodic Disorders of teeth and jaw (2 sources) Dental abscess; Translations: [Periapical abscess without sinus] Onset: 10-18-2023 10-18-2023 Episodic Fluid and electrolyte disorders (1 source) Dehydration; Translations: [Dehydration] 07-13-2023 Episodic Headache; including migraine (6 sources) Migraine; Translations: [Migraine, unspecified, not intractable, without status migrainosus] Chronic Menstrual disorders (3 sources) Excessive and frequent menstruation with regular cycle; Translations: [Excessive and frequent menstruation with regular cycle] Onset: 06-20-2024 Chronic Other complications of ; puerperium affecting management of mother (3 sources) delivery - delivered; Translations: [Encounter for delivery without indication] Episodic Other complications of ; puerperium affecting management of mother (3 sources) Encounter for delivery without indication; Translations: [ delivery, without mention of indication, delivered, with or without mention of antepartum condition] Episodic Other complications of ; puerperium affecting management of mother (1 source) Deliveries by ; Translations: [Encounter for delivery without indication] 05-17-2021 Episodic Other female genital disorders (2 sources) Abnormal uterine and vaginal bleeding, unspecified; Translations: [Abnormal uterine and vaginal bleeding, unspecified] Onset: 07-09-2024 Chronic Other nutritional; endocrine; and metabolic disorders (2 sources) Body mass index (BMI) 40.0-44.9, adult; Translations: [Body mass index [BMI]40.0-44.9, adult] Onset: 07-09-2024 Chronic Other and delivery including normal (11 sources) ; Translations: [Encounter for supervision of normal , unspecified, unspecified trimester] Episodic Residual codes; unclassified (4 sources) Gestation period, 28 weeks; Translations: [28 weeks gestation of ] 03-22-2021 Episodic Residual codes; unclassified (4 sources) Gestation period, 39 weeks; Translations: [39 weeks gestation of ] 03-22-2021 Episodic Urinary tract infections (4 sources) Acute cystitis; Translations: [Acute cystitis without hematuria] 03-22-2021 Episodic Results Test Name Value Interpretation Reference Range Facility PELVIC 06-20-2024 [place] [address] Patient: MARIA FERNANDA WALSH Phone#: : 1995 Age: 28 Gender: F Pt. Type: Out Account: [id number] Location: [facility] Ordering: DR. LUZMARIA DIAMOND Exam Date: 06/20/2024/9:54 Family Phys: Charge Code: 457470 Physician: Andrews Order #: [id number] Dose#: PROCEDURE: PELVIC ULTRASOUND, TRANSABDOMINAL ENDOVAGINAL COMPARISON: None. INDICATIONS: Heavy, painful periods TECHNIQUE: Pelvic ultrasound using transabdominal and endovaginal technique. FINDINGS: UTERUS: Size is 8.1 x 4.3 x 4.5 cm with unremarkable appearance. Endometrial thickness is 5 mm. ADNEXAE: Normal bilateral appearance with no significant masses. Right ovary is 2.4 x 1.5 x 1.7 cm. Left ovary is 1.7 x 2.3 x 1.7 cm. Follicle in the left ovary. CUL-DE-SAC: Small amount of physiologic free fluid in the cul-de-sac OTHER: Negative. CONCLUSION: 1. Unremarkable pelvic ultrasound Dictated by: Gia Leal MD on 06/20/2024 at 10:47 Approved by: Gia Leal MD on 06/20/2024 at 10:56 Normal [facility] PELVIC ENDO VAGINALon PELVIC ENDO VAGINAL [place] [id number] Patient: MARIA FERNANDA WALSH Phone#: : 1995 Age: 28 Gender: F Pt. Type: Out Account: [id number] Location: 2 Ordering: DR. LUZMARIA DIAMOND Exam Date: 06/20/2024/9:54 Family Phys: Charge Code: 293373 Physician: Andrews Order #: [id number] Dose#: PROCEDURE: PELVIC ULTRASOUND, TRANSABDOMINAL ENDOVAGINAL COMPARISON: None. INDICATIONS: Heavy, painful periods TECHNIQUE: Pelvic ultrasound using transabdominal and endovaginal technique. FINDINGS: UTERUS: Size is 8.1 x 4.3 x 4.5 cm with unremarkable appearance. Endometrial thickness is 5 mm. ADNEXAE: Normal bilateral appearance with no significant masses. Right ovary is 2.4 x 1.5 x 1.7 cm. Left ovary is 1.7 x 2.3 x 1.7 cm. Follicle in the left ovary. CUL-DE-SAC: Small amount of physiologic free fluid in the cul-de-sac OTHER: Negative. CONCLUSION: 1. Unremarkable pelvic ultrasound Dictated by: Gia Leal MD on 06/20/2024 at 10:47 Approved by: Gia Leal MD on 06/20/2024 at 10:56 Normal [facility] T3 ( TRIIODOTHYRONINE) [CCL] on 06-13-2024 T3 131 ng/dL Normal 79-165 [facility] Comment on above: Result Comment: [place] [address] Ivan Santizo III, M.D. [id number] Performed By: #### 2 05317 #### [facility],[address] [place], [place] [id number] T3, FREE [CCL]on 06-13-2024 Free T3 [Mass/Vol] 3.2 pg/mL Normal 2.3-4.1 [facility] Comment on above: Result Comment: [facility] [address] [place] [address] Ivan Santizo III, M.D. [id number] Performed By: #### 2 87828 #### [facility],[address] [place] [address] T4, FREE [CCL]on 06-13-2024 Free T4 [Mass/Vol] 0.9 ng/dL Normal 0.9-1.7 [facility] Comment on above: Result Comment: [facility] [address] [place] [address] Ivan Santizo III, M.D. [id number] Performed By: #### 2 53100 #### [facility],[address] [place] [address] CBC + DIFFon 06-11-2024 Baso # 0.02 x10EE3/UL Normal 0.00 - 0.10 [facility] Comment on above: Performed By: #### 2 90806 #### [facility],[address] [place] [address]75 Basophils/100 WBC (Bld) 0.2 % Normal 0.0 - 2.0 [facility] Comment on above: Performed By: #### 2 03881 #### [facility],[address] [place] [address]168 CBC + DIFF Normal [facility] Comment on above: Result Comment: CBC- COMPLETE BLOOD COUNT Performed By: #### 2 54012 #### [facility],[address] [place] [address] EO # 0.10 x10EE3/UL Normal 0.00 - 0.50 [facility] Comment on above: Performed By: #### 2 57109 #### [facility],[address] [place] [address] Eosinophils/100 WBC (Bld) 1.1 % Normal 0.0 - 7.0 [facility] Comment on above: Performed By: #### 2 91662 #### [facility],[address] [place] [address] Erythrocyte distribution width (RBC) [Ratio] 14.8 % Normal 12.0 - 15.6 [facility] Comment on above: Performed By: #### 2 41600 #### [facility],[address] [place] [address] Hematocrit (Bld) [Volume fraction] 41.5 % Normal 34.0 - 46.0 [facility] Comment on above: Performed By: #### 2 42141 #### [facility],[address] [place] [address] Hemoglobin (Bld) [Mass/Vol] 14.3 g/dL Normal 12.0 - 16.0 [facility] Comment on above: Performed By: #### 2 10111 #### [facility],[address] [place] [address] Lymph # 2.16 x10EE3/UL Normal 0.80 - 2.80 [facility] Comment on above: Performed By: #### 2 80030 #### [facility],[address] [place] [address] Lymphocytes/100 WBC (Bld) 23.1 % Normal 20.0 - 45.0 [facility] Comment on above: Performed By: #### 2 53347 #### [facility],[address] [place], [place] [address] MANUAL DIFF N/A Normal [facility] Comment on above: Performed By: #### 2 50591 #### [facility],[address] [place], [place] [address] MCH (RBC) [Entitic mass] 28 pg Normal 27 - 33 [facility] Comment on above: Performed By: #### 2 09037 #### [facility],[address] [place] [address] MCHC 35 X10 3 Normal 32 - 36 [facility] Comment on above: Performed By: #### 2 36778 #### [facility],[address] [place] [address] MCV (RBC) [Entitic vol] 81 fL Normal 80 - 99 [facility] Comment on above: Performed By: #### 2 83252 #### [facility],[address] [place] [address] [place] # 0.50 x10EE3/UL Normal 0.20 - 1.00 [facility] Comment on above: Performed By: #### 2 67920 #### [facility],[address] [place] [address] MONOS % 5.3 % Normal 0.0 - 10.0 [facility] Comment on above: Performed By: #### 2 61987 #### [facility],[address] [place] [address] Morphology Magdiel (Bld) [Interp] N/A Normal [facility] Comment on above: Performed By: #### 2 13257 #### [facility],[address] [place] [address] Neut # 6.59 x10EE3/UL Normal 1.50 - 7.10 [facility] Comment on above: Performed By: #### 2 37232 #### [facility],[address] [place] [address] Neutrophils/100 WBC (Bld) 70.4 % Normal 46.0 - 76.0 [facility] Comment on above: Performed By: #### 2 67291 #### [place] [address] PLATELET 292 x10EE3/UL Normal 150 - 450 [facility] Comment on above: Performed By: #### 2 15621 #### [facility],[address] [place] [address] Platelet mean volume (Bld) [Entitic vol] 8.8 fL Normal 6.6 - 10.5 [facility] Comment on above: Result Comment: AUTO MATED DIFFERENTIAL Performed By: #### 2 14023 #### [facility],[address] [place] [address] RBC 5.11 x 10EE6/UL Normal 4.10 - 5.30 [facility] Comment on above: Performed By: #### 2 90629 #### [facility],[address] [place] [address] WBC 9.4 x 10EE3/UL Normal 4.5 - 10.8 [facility] Comment on above: Performed By: #### 2 49338 #### [facility],[address] [place] [address] HEMOGLOBIN A1C (POM)on 06-11 Glucose [Mass/Vol] 114.0 mg/dL High 0.0 - 0.0 [facility] Comment on above: Result Comment: BLDo HEMOGLOBIN A1C REFERENCE RANGESBLDo Suggested Diagnosis HbA1c(%) HbA1C (mmol/mol Diabetic >/=6.5 >/=48 Prediabetes 5.7 - 6.4 39 - 47 Normal <5.7 <39 Performed By: #### 2 64966 #### [facility],[address] [place] [address] HbA1c (Bld) [Mass fraction] 5.6 % Normal 0.0 - 6.5 [facility] Comment on above: Performed By: #### 2 58434 #### [facility],[address] [place] [address] T3 SerPl-mCncon 06-11-2024 T3 [Mass/Vol] 131 ng/dL Normal 79-165 [facility] Comment on above: Order Comment: Speci men Type: BLOOD SPECIMEN Ordering Facility: [facility] Address: [address] [place] [address] Performed By: #### 3 051-0, 3053-6 #### [facility] CLIA [id number] [address] [place] [address] [place] T3Free SerPl-mCncon 06-12-19 25 Free T3 [Mass/Vol] 3.2 pg/mL Normal 2.3-4.1 [facility] Comment on above: Order Comment: Speci men Type: BLOOD SPECIMEN Ordering Facility: [facility] Address: [address] [place] [address] Performed By: #### 3 051-0, 3053-6 #### [facility] CLIA [id number] [address] [place] [address] [place] T4 Free SerPl-mCncon 025 Free T4 [Mass/Vol] 0.9 ng/dL Normal 0.9-1.7 [facility] Comment on above: Order Comment: Ingrid valera Type: BLOOD SPECIMEN Ordering Facility: [facility] Address: [address] [place] [address] Performed By: #### 3 024-7 #### [facility] CLIA [id number] [address] [place] [address] [place] TSHon 06-11-2024 TSH Qn 0.72 m[IU]/L Normal 0.35 - 3.74 [facility] Comment on above: Performed By: #### 2 73981 #### [facility],[address] [place] [address] CNOVon 10-18-2023 CNOV Office Visit ([facility] ) MARIA FERNANDA WALSH ([id number]) 1995 F Date Time Provider Department 10/18/23 7:40 PM AGATHA AMEZCUA [facility] During your visit today, we recorded the following information about you: Temperature Pulse Respiration Blood pressure 100.2 degrees 101/minute 18/minute 130/98 Weight Last Period 121.1 kg 10/04/23 Agatha Amezcua MD 10/18/2023 8:44 PM Signed SUBJECTIVE: Maria Fernanda Walsh is a 28 year old female here today acutely because of having pain and abscess in the left upper molar. The symptoms started about 3 days ago. The patient is without fever but does have chills. She called [facility] and does not have appointment until next Sunday. She was started to go to [facility] to maybe get antibiotics. The patient with pain with swallowing but able to handle secretions. ALLERGIES No Known Allergies History reviewed. No pertinent past medical history. History reviewed. No pertinent surgical history. Social History Tobacco Use Smoking status: Never Smokeless tobacco: Never Vaping Use Vaping Use: Never used Substance Use Topics Alcohol use: Never Drug use: Never Current Outpatient Medications on File Prior to Visit Medication Sig sertraline (ZOLOFT) 100 mg tablet Take 100 mg by mouth once daily. No current facility-administered medications on file prior to visit. ROS: No fever, chills, nausea, vomiting, diarrhea, constipation, shortness of breath, cp, abdominal pain or headache. PHYSICAL EXAMINATION: BP 130/98 Pulse 101 Temp 37.9 ?C (100.2 ?F) Resp 18 Wt 121.1 kg (267 lb) LMP 10/04/2023 (Approximate) SpO2 99% General appearance: Well appearing, alert, in no acute distress, well-hydrated, well nourished. and Obese Skin: Skin color, texture, turgor normal, no suspicious rashes or lesions Head: Normocephalic, no masses, lesions, tenderness or abnormalities Eyes: Anicteric sclera. Pupils are equally round and reactive to light. Extraocular movements are intact. Ears: External ears normal, canals clear, bilateral TM normal Nose/Sinuses: Nares normal, septum midline, mucosa normal, no drainage or sinus tenderness Oropharynx: Lips, mucosa, tongue,. Left upper molar #15 with tenderness to palpation. There is swelling in the periapical area of the #15. Neck: Left neck tenderness to palpation. No significant swelling noted. ASSESSMENT/PLAN: 1. Tooth abscess - ICD9: 522.5, ICD10: K04.7 See AVS - PENICILLIN V POTASSIUM 500 MG TABLET NSAIDs as prescribed MD Gita Mendoza, MD Agatha 10/18/2023 8:44 PM Addendum Keep appointment with [facility] next Sunday. Take antibiotics as prescribed. To the emergency room if unable to handle secretions or as high fever. TOOTHACHE: Your exam shows that your toothache is probably due to tooth decay and infection. Poor dental care is the main cause of this problem. Swelling and redness around a painful tooth often means you have a dental abscess. Pain medicine and antibiotics can help reduce symptoms, but you will need to see a dentist within the next few days to have your problem properly treated. Fillings or root canal work may be needed to save your tooth. If the problem is severe, your tooth may need to be pulled. Please return here right away if you have a fever over 101F, can?t swallow, or develop severe swelling. Referring Provider: SELF [200] Allergies As of Date: 10/18/2023 (No Known Allergies) Date Reviewed: 10/18/2023 Reviewed by: Shannon Rosenberg LPN - Fully Assessed Reason for Visit: Mouth/Lip Problem [68] Cmt: Has an abscess painx3 days Primary Visit Diagnosis:Tooth abscess [K04.7] Order(s):penicillin V potassium 500 mg tabletTake 1 tablet by mouth four times daily.Disp: 40 tabletRfl: 0 ibuprofen (MOTRIN) 800 mg tabletTake 1 tablet by mouth three times a day as needed for pain.Disp: 21 tabletRfl: 0 Prescriptions as of 10/19/2023 - sertraline (ZOLOFT) 100 mg tablet Take 100 mg by mouth once daily. - penicillin V potassium 500 mg tablet Take 1 tablet by mouth four times daily. - ibuprofen (MOTRIN) 800 mg tablet Take 1 tablet by mouth three times a day as needed for pain. Problem List As Of Date: 10/18/2023 (None) Other instructions from your clinician: Keep appointment with [facility] next Sunday. Take antibiotics as prescribed. To the emergency room if unable to handle secretions or as high fever. TOOTHACHE: Your exam shows that your toothache is probably due to tooth decay and infection. Poor dental care is the main cause of this problem. Swelling and redness around a painful tooth often means you have a dental abscess. Pain medicine and antibiotics can help reduce symptoms, but you will need to see a dentist within the next few days to have your problem properly treated. Fillings or root canal work may be needed to save your tooth. If (more content not included)... Normal [facility] Absolute lymphocyte countOrd ered By: Efrain Zaidi on 07-12-2023 Lymphocytes Auto (Unsp spec) [#/Vol] 0.98 10*3/uL 0.83-4.51 [facility] Automated lymphocyte count a s percentage of total leukocytesOrdered By: Efrain Zaidi on 07-12-2023 Lymphocytes/100 WBC Auto (Unsp spec) 7.5 % 19-41 [facility] Basophil percentageOrdered B y: Efrain Zaidi on 07-12-2023 Ammonia (P) [Moles/Vol] 16.0 umol/L 11-32 [facility] Basophil percentage 0-5 SEEN /hpf 0-5 [facility] Basophils/100 WBC (Bld) 0.3 % 0-1 [facility] Bilirubin [Mass/Vol] 0.50 mg/dL 0.20-1.[address] [facility] Comment on above: For patients on eltr ombopag therapy, use of Dimension [place] TBIL is not recommended. Chloride [Moles/Vol] 106 mmol/L 98-[address] [facility] Eosinophils/100 WBC (Bld) 0.2 % 0-5 [facility] Glucose [Mass/Vol] 121 mg/dL 74-106 [facility] Comment on above: Fasting Glucose resu lt from 100 to 125 mg/dL suggests IMPAIRED HOMEOSTASIS per A.D.A. criteria. Hemoglobin (Bld) [Mass/Vol] 13.1 g/dL 12.0-15.0 [facility] Monocytes/100 WBC (Bld) 4.7 % 0-10 [facility] Neutrophils (Bld) [#/Vol] 11.3 10*3/uL 2.0-7.7 [facility] Neutrophils/100 WBC (Bld) 87.0 % 47-70 [facility] Potassium [Moles/Vol] 3.8 mmol/L 3.5-5.1 [facility] Protein [Mass/Vol] 7.7 g/dL 6.4-8.2 [facility] Sodium [Moles/Vol] 137 mmol/L 136-145 [facility] WBC (Bld) [#/Vol] 13.0 10*3/uL 4.4-11.0 [facility] Bilirubin Test strip Ql (U)O rdered By: Efrain Zaidi on 07-12-2023 Bilirubin Ql (U) Negative Negative [facility] Determination of erythrocyte mean corpuscular volume (MCV)Ordered By: Efrain Zaidi on 07-12-2023 MCV (RBC) [Entitic vol] 82.8 fL 81-99 [facility] Direct bilirubinOrdered By: Efrain Zaidi on 07-12-2023 Bilirubin.direct [Mass/Vol] 0.14 mg/dL 0.00-0.30 [facility] Erythrocyte distribution wid th ratioOrdered By: Efrain Zaidi on 07-12-2023 Erythrocyte distribution width (RBC) [Ratio] 13.7 % 11.6-14.6 [facility] Erythrocyte distribution wid th standard deviationOrdered By: Efrain Zaidi on 07-12-2023 Erythrocyte distribution width (RBC) [Entitic vol] 41.3 fL 35.1-43.9 [facility] Hematocrit Auto (Bld) [Volum e fraction]Ordered By: Efrain Zaidi on 07-12-2023 Hematocrit (Bld) [Volume fraction] 41.8 % 37-47 [facility] Immature granulocytes/100 WB C Auto (Bld)Ordered By: Efrain Zaidi on 07-12-2023 Immature granulocytes/100 WBC (Bld) 0.300 % 0.0-0.9 [facility] Comment on above: IG% - Immature Granu locytes (promyelocytes, myelocytes and metamyelocytes) > 1% indicates that a LEFT SHIFT is Present. Ketones Test strip Ql (U)Ord ered By: Efrain Zaidi on 07-12-2023 Ketones Ql (U) Negative Negative [facility] Laboratory - Chemistry and C hemistry - challengeOrdered By: Efrain Zaidi on 07-12-2023 ALP [Catalytic activity/Vol] 97 U/L 45-117 [facility] ALT [Catalytic activity/Vol] 16 U/L 13-56 [facility] CO2 [Moles/Vol] 25.0 mmol/L 21.0-32.0 [facility] Globulin (S) [Mass/Vol] 4.3 g/dL 2.2-4.2 [facility] HCG ( test) Ql (U) Negative [facility] [facility] Comment on above: Very dilute urine sp ecimens, as indicated by a low specificgravity, may not contain security representative levels of hCG. If is still suspected, a first morning urinespecimen should be collected 48 hours later and tested. Magnesium [Mass/Vol] 1.6 mg/dL 1.6-2.[address] [facility] Urea nitrogen/Creatinine [Mass ratio] 11.9 mg/mg 10-20 [facility] - Hematology and Cell countsOrdered By: Efrain Zaidi on 07-12-2023 MCH (RBC) [Entitic mass] 25.9 pg 27.0-32.0 [facility] MCHC (RBC) [Mass/Vol] 31.3 g/dL 32-36 [facility] Nucleated RBC/100 WBC (Bld) [Ratio] 0 % 0-5 [facility] Platelet mean volume (Bld) [Entitic vol] 10.7 fL 6.2-12.0 [facility] Platelets (Bld) [#/Vol] 247 10*3/uL 150-450 [facility] - Microbiology an d Antimicrobial susceptibilityOrdered By: Efrain Zaidi on 07-12-2023 SARS-CoV-2 (COVID-19) RNA NOE+probe Ql (Unsp spec) [facility] Mucus LM Ql (Urine sed)Order ed By: Efrain Zaidi on 07-12-2023 Mucus Ql (Urine sed) 0 SEEN /hpf [facility] Nitrite Test strip Ql (U)Ord ered By: Efrain Zaidi on 07-12-2023 Nitrite Ql (U) Negative Negative [facility] No Panel InformationOrdered By: Efrain Zaidi on 07-12-2023 D-Dimer Quantitative (PE/DVT) 0.50 FEU/ug/m 0.27-0.49 [facility] Comment on above: D-Dimer ELEVATED (>0 .49): Additional studies and clinicalassessments are indicated to conclude diagnosis of:Deep Vein Thrombosis (DVT) or Pulmonary Embolism (PE)CRITICAL VALUE VERIFIED. CALLED TO [id number] Aniket Fam.RESULTS READ BACK BY SAME. Estimated Creatinine Clearance Calc 120.82 ml/min [facility] Estimated GFR (MDRD) Amer 85 mL/min >60 [facility] Comment on above: GFR Calc Estimated GFR (MDRD) Non-Af Amer 71 mL/min >60 [facility] Comment on above: Non- GFR Calc Troponin I High Sensitivity < 3 pg/mL 3.0-54.0 [facility] Comment on above: Please Note: New Taya t Units and Gender Specific Reference Ranges. For more information see Policy Stat Procedure [place] High Sensitivity Troponin (TNIH) and attachments. Urine RBC 0-5 SEEN /hpf 0-5 [facility] Protein Test strip Ql (U)Ord ered By: Efrain Zaidi on 07-12-2023 Protein Ql (U) Negative Negative [facility] RBC Auto (Bld) [#/Vol]Ordere d By: Efrain Zaidi on 07-12-2023 RBC (Bld) [#/Vol] 5.05 10*6/uL 4.2-5.4 [facility] Serum or plasma calcium felipe urement (mass/volume)Ordered By: Efrain Zaidi on 07-12-2023 Calcium [Mass/Vol] 9.0 mg/dL 8.5-10.1 [facility] Serum or plasma creatinine m easurement (mass/volume)Ordered By: Efrain Zaidi on 07-12-2023 Creatinine [Mass/Vol] 1.01 mg/dL 0.55-1.02 [facility] Comment on above: The validity of the calculated GFR & GFRAA in patients over 70 years has not been determined. Clinical correlation is essential. Serum or plasma thyroid stim ulating hormone (TSH) measurement (units/volume)Ordered By: Efrain Zaidi on 07-12-2023 TSH Qn 0.35 uIU/mL 0.358-3.74 [facility] Serum or plasma urea nitroge n measurement (mass/volume)Ordered By: Efrain Zaidi on 07-12-2023 Urea nitrogen [Mass/Vol] 12 mg/dL 7-18 [facility] Squamous epithelial cells de tection in urine sediment by light microscopyOrdered By: Efrain Zaidi on 07-12-2023 Epithelial cells.squamous LM Ql (Urine sed) 0-5 SEEN /hpf 5-10 [facility] Thin prep Papanicolaou smear with manual screeningOrdered By: Efrain Zaidi on 07-12-2023 Thin prep Papanicolaou smear with manual screening 3.4 g/dL 3.2-5.0 [facility] Thin prep Papanicolaou smear with manual screening 14 U/L 15-37 [facility] Thin prep Papanicolaou smear with manual screening 6 5-15 [facility] Urine blood detectionOrdered By: Efrain Zaidi on 07-12-2023 RBC Ql (U) 25 /ul Negative [facility] Urine clarityOrdered By: Cabrera Zaidi on 07-12-2023 Clarity (U) Clear Clear [facility] Urine color determinationOrd ered By: Efrain Zaidi on 07-12-2023 Color (U) Yellow Yellow [facility] Urine glucose detectionOrder ed By: Efrain Zaidi on 07-12-2023 Glucose Ql (U) Normal mg/dl Normal [facility] Urine leukocyte esterase det ection by dipstickOrdered By: Efrain Zaidi on 07-12-2023 Leukocyte esterase Test strip Ql (U) 25 /ul Negative [facility] Urine pHOrdered By: Efrain joseph on 07-12-2023 pH (U) 8.0 [pH] 5.0 - 8.0 [facility] Urine sediment bacteria coun t by microscopy (number/high power field)Ordered By: Efrain Zaidi on 07-12-2023 Bacteria LM.HPF (Urine sed) [#/Area] 1 /[HPF] None Seen [facility] Urine specific gravity measu rementOrdered By: Efrain Zaidi on 07-12-2023 Specific gravity (U) [Rel density] 1.010 1.002-1.030 [facility] Urine urobilinogen measureme ntOrdered By: Efrain Zaidi on 07-12-2023 Urobilinogen Ql (U) Normal mg/dl Normal [facility] Cervical or vagninal specime n microscopic examination by cytology stain (reported ason 05-03-2022 Cytology report Cyto stain Doc (Cvx/Vag) Comment [facility] Work Phone: Comment on above: The Pap smear is a s creening test designed to aid in thedetection of premalignant and malignant conditions of theuterine cervix. It is not a diagnostic procedure andshould not be used as the sole means of detecting cervicalcancer. Both false-positive and false-negative reports dooccur. Laboratory - Cytologyon -0 [employer] Cyto stain Nom (Cvx/Vag) [ID] Comment [facility] Work Phone: Comment on above: Behzad Larose rvisory Plugger Man (ASCP) Pathologist Cyto stain Nom (Cvx/Vag) [ID] Comment [facility] Work Phone: Comment on above: Lucille Downs MD, Pa thologist Recommended follow-up Cyto stain Nom (Cvx/Vag) Comment [facility] Work Phone: Comment on above: Suggest follow up as clinically appropriate. Laboratory - Miscellaneous t estson 07-12-2021 Service comment (Unsp spec) [Interp] Comment [facility] Work Phone: Comment on above: This liquid based Th inPrep(R) pap test was screened withthe use of an image guided system. Service comment (Unsp spec) [Interp] . [facility] Work Phone: No Panel Informationon 07-12 Human Papillomavirus Screen Comment [facility] Work Phone: Comment on above: See below for HPV te sting results. Pathology report final diagnosis Narrative Comment [facility] Work Phone: Comment on above: EPITHELIAL CELL ABNO RMALITY.ATYPICAL SQUAMOUS CELLS OF UNDETERMINED SIGNIFICANCE (ASC-US). R87.610 Basophil percentageon 2021 WBC (Bld) [#/Vol] 11.1 10*3/uL 4.4-11.0 [facility] [place] Work Phone: Blood erythrocytes count (nu mber/volume)on 05-18-2021 RBC (Bld) [#/Vol] 4.02 10*6/uL 4.2-5.4 [facility] [place] Work Phone: Blood hemoglobin measurement (mass/volume)on 05-18-2021 Hemoglobin (Bld) [Mass/Vol] 11.0 g/dL 12.0-15.0 [facility] Work Phone: Blood platelet mean volumeon 05-18-2021 Platelet mean volume (Bld) [Entitic vol] 10.8 fL 6.2-12.0 [facility] Work Phone: Determination of erythrocyte mean corpuscular volume (MCV)on 05-18-2021 MCV (RBC) [Entitic vol] 83.3 fL 81-99 [facility] Work Phone: Hematocrit Auto (Bld) [Volum e fraction]on 05-18-2021 Hematocrit (Bld) [Volume fraction] 33.5 % 37-47 [facility] Work Phone: Laboratory - Hematology and Cell countson 05-18-2021 Erythrocyte distribution width (RBC) [Entitic vol] 46.3 fL 35.1-43.9 [facility] Work Phone: Erythrocyte distribution width (RBC) [Ratio] 15.1 % 11.6-14.6 [facility] Work Phone: [phone] MCH (RBC) [Entitic mass] 27.4 pg 27.0-32.0 [facility] Work Phone: [phone] MCHC Auto (RBC) [Mass/Vol]on 05-18-2021 MCHC (RBC) [Mass/Vol] 32.8 g/dL 32-36 [facility] Work [facility]: Platelets bldon 05-18-2021 Platelets (Bld) [#/Vol] 166 10*3/uL 150-450 [facility] Work Phone: Absolute lymphocyte counton 05-17-2021 Lymphocytes Auto (Unsp spec) [#/Vol] 2.31 10*3/uL 0.83-4.51 [facility] Work Phone: Basophil percentageon 2021 Basophils/100 WBC (Bld) 0.1 % 0-1 [facility] Work Phone: Eosinophils/100 WBC (Bld) 1.1 % 0-5 [facility] Work Phone: [phone] Neutrophils (Bld) [#/Vol] 5.6 10*3/uL 2.0-7.7 [facility] Work Phone: Neutrophils/100 WBC (Bld) 65.7 % 47-70 [facility] Work Phone: Blood lymphocytes/100 leukoc yteson 05-17-2021 Lymphocytes/100 WBC (Bld) 27.4 % 19-41 [facility] Work Phone: Blood monocytes/100 leukocyt eson 05-17-2021 Monocytes/100 WBC (Bld) 5.5 % 0-10 [facility] Work Phone: Laboratory - Hematology and Cell countson 05-17-2021 Immature granulocytes/100 WBC (Bld) 0.200 % 0.0-0.9 [facility] Work Phone: Comment on above: IG% - Immature Granu locytes (promyelocytes, myelocytes and metamyelocytes) > 1% indicates that a LEFT SHIFT is Present. Nucleated RBC/100 WBC (Bld) [Ratio] 0 % 0-5 [facility] Work Phone: No Panel Informationon 04-27 Group B Streptococcus Culture Group B Beta Streptococcus is not isolated. [facility] Work Phone: Basophil percentageon 2021 WBC (Bld) [#/Vol] 8.3 10*3/uL 4.4-11.0 [facility] Work Phone: Basophil percentage 5-10 SEEN /hpf [facility] Work Phone: Bilirubin Test strip Ql (U)o n 03-22-2021 Bilirubin Ql (U) Negative Negative [facility] Work Phone: Blood erythrocytes count (nu mber/volume)on 03-22-2021 RBC (Bld) [#/Vol] 4.51 10*6/uL 4.2-5.4 [facility] Work Phone: Blood hemoglobin measurement (mass/volume)on 03-22-2021 Hemoglobin (Bld) [Mass/Vol] 12.5 g/dL 12.0-15.0 [facility] Work Phone: [phone] Blood platelet mean volumeon 03-22-2021 Platelet mean volume (Bld) [Entitic vol] 10.9 fL 6.2-12.0 [facility] Work Phone: [phone] Determination of erythrocyte mean corpuscular volume (MCV)on 03-22-2021 MCV (RBC) [Entitic vol] 85.4 fL 81-99 [facility] Work Phone: [phone] Hematocrit Auto (Bld) [Volum e fraction]on 03-22-2021 Hematocrit (Bld) [Volume fraction] 38.5 % 37-47 [facility] Work Phone: [phone] Ketones Test strip Ql (U)on 03-22-2021 Ketones Ql (U) Negative Negative [facility] Work Phone: [phone] Laboratory - Chemistry and C hemistry - challengeon 03-22-2021 ALT [Catalytic activity/Vol] 14 U/L 13-56 [facility] Work Phone: [phone] Laboratory - Hematology and Cell countson 03-22-2021 Erythrocyte distribution width (RBC) [Entitic vol] 45.6 fL 35.1-43.9 [facility] Work Phone: [phone] Erythrocyte distribution width (RBC) [Ratio] 14.9 % 11.6-14.6 [facility] Work Phone: [phone] MCH (RBC) [Entitic mass] 27.7 pg 27.0-32.0 [facility] Work Phone: [phone] MCHC Auto (RBC) [Mass/Vol]on 03-22-2021 MCHC (RBC) [Mass/Vol] 32.5 g/dL 32-36 [facility] Work Phone: Mucus LM Ql (Urine sed)on Mucus Ql (Urine sed) 0 SEEN /hpf [facility] Work Phone: Nitrite Test strip Ql (U)on 03-22-2021 Nitrite Ql (U) Negative Negative [facility] Work Phone: No Panel Informationon 03-22 SARS-CoV-2 Antigen (Rapid) [facility] Work Phone: Estimated Creatinine Clearance Calc 157.65 ml/min [facility] Work Phone: Estimated GFR (MDRD) Amer 164 mL/min >60 [facility] Work Phone: Comment on above: GFR Calc Estimated GFR (MDRD) Non-Af Amer 136 mL/min >60 [facility] Work Phone: Comment on above: Non- GFR Calc Platelets bldon 03-22-2021 Platelets (Bld) [#/Vol] 231 10*3/uL 150-450 [facility] Work Phone: Protein Test strip Ql (U)on 03-22-2021 Protein Ql (U) Negative Negative [facility] Work Phone: Serum or plasma creatinine m easurement (mass/volume)on 03-22-2021 Creatinine [Mass/Vol] 0.58 mg/dL 0.55-1.02 [facility] Work Phone: Comment on above: The validity of the calculated GFR & GFRAA in patients over 70 years has not been determined. Clinical correlation is essential. Serum or plasma uric acid me asurement (mass/volume)on 03-22-2021 Urate [Mass/Vol] 5.6 mg/dL 2.6-6.0 [facility] Work Phone: Comment on above: The drugs N-Acetylcy steine and Metamizole may falsely depress this assay. Squamous epithelial cells de tection in urine sediment by light microscopyon 03-22-2021 Epithelial cells.squamous LM Ql (Urine sed) 5-10 SEEN /hpf [facility] Work Phone: Thin prep Papanicolaou smear with manual screeningon 03-22-2021 Thin prep Papanicolaou smear with manual screening 12 U/L 15-37 [facility] Work Phone: Urine blood detectionon 03-12 RBC Ql (U) 10 /ul Negative [facility] Work Phone: [phone] RBC Ql (U) 0 SEEN /hpf [facility] Work Phone: Urine clarityon 03-22-2021 Clarity (U) Clear Clear [facility] Work Phone: Urine color determinationon 03-22-2021 Color (U) Yellow Yellow [facility] Work Phone: Urine creatinine measurement (mass/volume)on 03-22-2021 Creatinine (U) [Mass/Vol] 154.00 mg/dL NO RANGE EST. [facility] Work Phone: Urine glucose detectionon Glucose Ql (U) Normal mg/dl Normal [facility] Work Phone: Urine leukocyte esterase det ection by dipstickon 03-22-2021 Leukocyte esterase Test strip Ql (U) 500 /ul Negative [facility] Work Phone: Urine pHon 03-22-2021 pH (U) 7.0 [pH] [facility] Work Phone: Urine protein measurement (m ass/volume)on 03-22-2021 Protein (U) [Mass/Vol] 13.9 mg/dL 0.0-11.8 [facility] Work Phone: Urine protein/creatinine mas s ratioon 03-22-2021 Protein/Creatinine (U) [Mass ratio] 90 mg/g CRE 0-200 [facility] Work Phone: Urine sediment bacteria coun t by microscopy (number/high power field)on 03-22-2021 Bacteria LM.HPF (Urine sed) [#/Area] 0 /[HPF] None Seen [facility] Work Phone: Urine specific gravity measu rementon 03-22-2021 Specific gravity (U) [Rel density] 1.010 [facility] Work Phone: Urobilinogen Auto test strip Ql (U)on 03-22-2021 Urobilinogen Ql (U) Normal mg/dl Normal [facility] Work Phone: Basophil percentageon 2021 Bilirubin [Mass/Vol] 0.20 mg/dL 0.20-1.[address] [facility] Work Phone: Comment on above: For patients on eltr ombopag therapy, use of Dimension [place] TBIL is not recommended. Chloride [Moles/Vol] 108 mmol/L 98-[address] [facility] Work Phone: Glucose [Mass/Vol] 96 mg/dL 74-106 [facility] Work Phone: Comment on above: Please note revised GLUCOSE reference range effective 2017. Potassium [Moles/Vol] 3.7 mmol/L 3.5-5.1 [facility] Work Phone: Protein [Mass/Vol] 6.6 g/dL 6.4-8.2 [facility] Work Phone: Sodium [Moles/Vol] 140 mmol/L 136-145 [facility] Work Phone: [phone] WBC (Bld) [#/Vol] 12.9 10*3/uL 4.4-11.0 [facility] Work Phone: Blood erythrocytes count (nu mber/volume)on 03-20-2021 RBC (Bld) [#/Vol] 4.24 10*6/uL 4.2-5.4 [facility] Work Phone: [phone] Blood hemoglobin measurement (mass/volume)on 03-20-2021 Hemoglobin (Bld) [Mass/Vol] 12.0 g/dL 12.0-15.0 [facility] Work Phone: [phone] Blood platelet mean volumeon 03-20-2021 Platelet mean volume (Bld) [Entitic vol] 10.2 fL 6.2-12.0 [facility] Work Phone: [phone] Determination of erythrocyte mean corpuscular volume (MCV)on 03-20-2021 MCV (RBC) [Entitic vol] 84.9 fL 81-99 [facility] Work Phone: [phone] Hematocrit Auto (Bld) [Volum e fraction]on 03-20-2021 Hematocrit (Bld) [Volume fraction] 36.0 % 37-47 [facility] Work Phone: [phone] Laboratory - Chemistry and C hemistry - challengeon 03-20-2021 ALP [Catalytic activity/Vol] 103 U/L 45-117 [facility] Work Phone: [phone] ALT [Catalytic activity/Vol] 12 U/L 13-56 [facility] Work Phone: [phone] CO2 [Moles/Vol] 25.0 mmol/L 21.0-32.0 [facility] Work Phone: [phone] Globulin (S) [Mass/Vol] 4.3 g/dL 2.2-4.2 [facility] Work Phone: [phone] Urea nitrogen/Creatinine [Mass ratio] 9.4 mg/mg 10-20 [facility] Work Phone: [phone] Laboratory - Hematology and Cell countson 03-20-2021 Erythrocyte distribution width (RBC) [Entitic vol] 44.6 fL 35.1-43.9 [facility] Work Phone: [phone] Erythrocyte distribution width (RBC) [Ratio] 14.7 % 11.6-14.6 [facility] Work Phone: [phone] MCH (RBC) [Entitic mass] 28.3 pg 27.0-32.0 [facility] Work Phone: [phone] MCHC Auto (RBC) [Mass/Vol]on 03-20-2021 MCHC (RBC) [Mass/Vol] 33.3 g/dL 32-36 [facility] Work Phone: [phone] No Panel Informationon 03-20 Estimated Creatinine Clearance Calc 172.53 ml/min [facility] Work Phone: Estimated GFR (MDRD) Amer 182 mL/min >60 [facility] Work Phone: Comment on above: GFR Calc Estimated GFR (MDRD) Non-Af Amer 151 mL/min >60 [facility] Work Phone: Comment on above: Non- GFR Calc Platelets bldon 03-20-2021 Platelets (Bld) [#/Vol] 239 10*3/uL 150-450 [facility] Work Phone: Serum or plasma albumin felipe urement (mass/volume)on 03-20-2021 Albumin [Mass/Vol] 2.3 g/dL 3.2-5.0 [facility] Work Phone: Serum or plasma albumin/glob ulin mass ratioon 03-20-2021 Albumin/Globulin [Mass ratio] 0.5 {ratio} 0.9-2.4 [facility] Work Phone: Serum or plasma calcium felipe urement (mass/volume)on 03-20-2021 Calcium [Mass/Vol] 8.2 mg/dL 8.5-10.1 [facility] Work Phone: Serum or plasma creatinine m easurement (mass/volume)on 03-20-2021 Creatinine [Mass/Vol] 0.53 mg/dL 0.55-1.02 [facility] Work Phone: Comment on above: The validity of the calculated GFR & GFRAA in patients over 70 years has not been determined. Clinical correlation is essential. Serum or plasma urea nitroge n measurement (mass/volume)on 03-20-2021 Urea nitrogen [Mass/Vol] 5 mg/dL 7-18 [facility] Work Phone: Thin prep Papanicolaou smear with manual screeningon 03-20-2021 Thin prep Papanicolaou smear with manual screening 8 U/L 15-37 [facility] Work Phone: Thin prep Papanicolaou smear with manual screening 7 5-15 [facility] Work Phone: Thin prep Papanicolaou smear with manual screening 126 U/L 84-246 [facility] Work Phone: Basophil percentageon 2020 WBC (Bld) [#/Vol] 13.1 10*3/uL 4.4-11.0 [facility] Work Phone: Blood erythrocytes count (nu mber/volume)on 03-08-2021 RBC (Bld) [#/Vol] 4.57 10*6/uL 4.2-5.4 [facility] Work Phone: Blood hemoglobin measurement (mass/volume)on 03-08-2021 Hemoglobin (Bld) [Mass/Vol] 13.0 g/dL 12.0-15.0 [facility] Work Phone: Blood platelet mean volumeon 03-08-2021 Platelet mean volume (Bld) [Entitic vol] 10.4 fL 6.2-12.0 [facility] Work Phone: Determination of erythrocyte mean corpuscular volume (MCV)on 03-08-2021 MCV (RBC) [Entitic vol] 86.7 fL 81-99 [facility] Work Phone: [phone] Gestational diabetes screen 1-hour screen with 50g oral glucose loadon 03-08-2021 Glucose 1 Hr post 50 g glucose PO [Mass/Vol] 128 mg/dL 70-140 [facility] Work Phone: Hematocrit Auto (Bld) [Volum e fraction]on 03-08-2021 Hematocrit (Bld) [Volume fraction] 39.6 % 37-47 [facility] Work Phone: [phone] Laboratory - Hematology and Cell countson 03-08-2021 Erythrocyte distribution width (RBC) [Entitic vol] 46.8 fL 35.1-43.9 [facility] Work Phone: [phone] Erythrocyte distribution width (RBC) [Ratio] 14.8 % 11.6-14.6 [facility] Work Phone: MCH (RBC) [Entitic mass] 28.4 pg 27.0-32.0 [facility] Work Phone: MCHC Auto (RBC) [Mass/Vol]on 03-08-2021 MCHC (RBC) [Mass/Vol] 32.8 g/dL 32-36 [facility] Work Phone: Platelets bldon 03-08-2021 Platelets (Bld) [#/Vol] 310 10*3/uL 150-450 [facility] Work Phone: Vital Signs Date Time Vital Sign Value Performing Clinician Facility 10-18-2023 20:23-0400 Body temperature 100.2 [degF] Agatha Amezcua MD Work Phone: [facility] 10-18-2023 20:23-0400 Body weight 121.11 kg Agatha Amezcua MD Work Phone: [facility] 10-18-2023 20:23-0400 Diastolic blood pressure 98 mm[Hg] Agatha Amezcua MD Work Phone: [facility] 10-18-2023 20:23-0400 Heart rate 101 /min Agatha Amezcua MD Work Phone: [facility] 10-18-2023 20:23-0400 Respiratory rate 18 /min Agatha Amezcua MD Work Phone: [facility] 10-18-2023 20:23-0400 SaO2% (BldA) [Mass fraction] 99 % Agatha Amezcua MD Work Phone: [facility] 10-18-2023 20:23-0400 Systolic blood pressure 130 mm[Hg] Agatha Amezcua MD Work Phone: [facility] 07-13-2023 14:00-0400 Body temperature 99.4 [degF] [facility] 07-13-2023 14:00-0400 Diastolic blood pressure 90 mm[Hg] [facility] 07-13-2023 14:00-0400 Heart rate 110 /min [facility] 07-13-2023 14:00-0400 Respiratory rate 18 /min [facility] 07-13-2023 14:00-0400 SaO2% (BldA) [Mass fraction] 92 % [facility] 07-13-2023 14:00-0400 Systolic blood pressure 115 mm[Hg] [facility] 07-13-2023 00:06-0400 Body mass index (BMI) [Ratio] 40.8 kg/m2 [facility] 07-13-2023 00:06-0400 Body weight 125.4 kg [facility] 07-12-2023 22:42-0400 Body height 175.26 cm [facility] 07-12-2023 20:55-0400 Body temperature 100.76 [degF] BENITO GONZALEZ MD [facility] 07-12-2023 20:55-0400 Body weight 120.8 kg BENITO GONZALEZ MD [facility] 07-12-2023 20:55-0400 Diastolic Blood Pressure Non-Invasive 77 mm[Hg] BENITO GONZALEZ MD [facility] 07-12-2023 20:55-0400 Heart rate 102 /min BENITO GONZALEZ MD [facility] 07-12-2023 20:55-0400 Respiratory rate 20 /min BENITO GONZALEZ MD [facility] 07-12-2023 20:55-0400 Systolic Blood Pressure Non-Invasive 114 mm[Hg] BENITO GONZALEZ MD [facility] 05-18-2021 15:04-0500 Body temperature 97.7 [degF] Dr. Oli Mason Work Phone: [facility] Work Phone: 05-18-2021 15:04-0500 Diastolic blood pressure 76 mm[Hg] Dr. Oli Mason Work Phone: [facility] Work Phone: 05-18-2021 15:04-0500 Heart rate 90 /min Dr. Oli Mason Work Phone: [facility] Work Phone: 05-18-2021 15:04-0500 Respiratory rate 16 /min Dr. Oli Mason Work Phone: [facility] Work Phone: 05-18-2021 15:04-0500 SaO2% (BldA) [Mass fraction] 95 % Dr. Oli Mason Work Phone: [facility] Work Phone: 05-18-2021 15:04-0500 Systolic blood pressure 123 mm[Hg] Dr. Oli Mason Work Phone: [facility] Work Phone: 05-17-2021 04:33-0500 Body height 175.[address] Oli Mason Work Phone: [facility] Work Phone: 05-17-2021 04:33-0500 Body mass index (BMI) [Ratio] 38.9 kg/m2 Dr. Oli Mason Work Phone: [facility] Work Phone: 05-17-2021 04:33-0500 Body weight 119.[address] Oli Mason Work Phone: [facility] Work Phone: 03-22-2021 20:04-0500 Heart rate 118 /min Dr. Oli Mason Work Phone: [facility] Work Phone: 03-22-2021 20:04-0500 SaO2% (BldA) [Mass fraction] 95 % Dr. Oli Mason Work Phone: [facility] Work Phone: 03-22-2021 19:35-0500 Diastolic blood pressure 68 mm[Hg] Dr. Oli Mason Work Phone: [facility] Work Phone: 03-22-2021 19:35-0500 Systolic blood pressure 115 mm[Hg] Dr. Oli Mason Work Phone: [facility] Work Phone: 03-22-2021 17:30-0500 Body temperature 98 [degF] Dr. Oli Mason Work Phone: [facility] Work Phone: 03-22-2021 17:26-0500 Body mass index (BMI) [Ratio] 38.4 kg/m2 Dr. Oli Mason Work Phone: [facility] Work Phone: 03-22-2021 17:26-0500 Body weight 118.[address] Oli Mason Work Phone: [facility] Work Phone: 03-20-2021 18:23-0500 Diastolic blood pressure 60 mm[Hg] Dr. Oli Mason Work Phone: [facility] Work Phone: 03-20-2021 18:23-0500 Heart rate 103 /min Dr. Oli Mason Work Phone: [facility] Work Phone: 03-20-2021 18:23-0500 Systolic blood pressure 130 mm[Hg] Dr. Oli Mason Work Phone: [facility] Work Phone: 03-20-2021 17:54-0500 Body mass index (BMI) [Ratio] 38.5 kg/m2 Dr. Oli Mason Work Phone: [facility] Work Phone: 03-20-2021 17:54-0500 Body weight 118.[address] Oli Mason Work Phone: [facility] Work Phone: 03-20-2021 17:51-0500 Body temperature 97.6 [degF] Dr. Oli Mason Work Phone: [facility] Work Phone: 03-20-2021 17:51-0500 SaO2% (BldA) [Mass fraction] 97 % Dr. Oli Mason Work Phone: [facility] Work Phone: Encounters Encounter Date Encounter Type Care Provider Facility Start: 07-09-2024 ambulatory [facility] Start: 06-20-2024 End: 06-20-2024 ambulatory [facility] Start: 06-11-2024 End: 06-11-2024 ambulatory [facility] Start: 10-18-2023 End: 10-18-2023 ambulatory SELF Facility:[id number] Start: 10-18-2023 End: 10-18-2023 Office outpatient new 30 minutes Agatha Amezcua MD Work Phone: [facility] Comment on above: Tooth abscess (Prima ry Dx) Start: 07-12-2023 End: 07-13-2023 Emergency department patient visit [facility] Work Phone: Start: 07-12-2023 End: 07-13-2023 Emergency department patient visit BENITO GONZALEZ MD [facility] Start: 08-11-2021 End: 08-11-[address] [facility] Start: 07-12-2021 End: 07-12-[address] [facility] Start: 06-20-2021 End: 06-20-[address] Oli Mason Work Phone: [facility] Start: 06-07-2021 End: 06-07-[address] Oli Mason Work Phone: [facility] Start: 05-19-2021 End: 05-19-[address] Oli Mason Work Phone: [facility] Start: 05-17-2021 End: 05-18-2021 Evaluation and management of inpatient [facility] Start: 05-13-2021 End: 05-13-[address] Oli Mason Work Phone: [facility]Neurology Start: 04-27-2021 End: 04-27-[address] [facility] Start: 03-22-2021 End: 03-22-[address] Oli Mason Work Phone: [facility], Outpatients Start: 03-20-2021 End: 03-20-[address] Oli Mason Work Phone: [facility], Outpatients Start: 03-08-[address] Oli Mason Work Phone: [facility], [place] anesthesiology fellow Off Procedures Date Procedure Procedure Detail Performing Clinician Start: 07-12-2023 Plain chest X-ray Start: 07-12-2023 CT of head without contrast Start: 07-12-2023 SARS-CoV-2, Influenza & RSV (PCR) Start: 08-11-[address] Oli Mason Work Phone: Start: 08-11-[address] Oli Mason Work Phone: Start: 06-20-2021 MRI of brain without contrast Dr. Oli Mason Work Phone: Start: 05-13-2021 End: 05-13-[address] Oli Mason Work Phone: Start: 04-27-2021 Group B Streptococcus Culture Dr. Oli Mason Work Phone: Start: 03-22-2021 CT of head without contrast Dr. Oli Mason Work Phone: Start: 03-22-2021 SARS-CoV-2 Antigen (Rapid) Dr. Oli villarreal Work Phone: H/O: section Previous c esarean section Dr. Oli Mason Work Phone: Plan of Treatment Date Care Activity Detail Author Start: 11-11-2023 Influenza vaccination Influenza Vaccine (#1) [facility] Start: 07-13-2023 [facility] Start: 11-10-2022 Covid-19 Vaccine ( season) Covid-19 Vaccine ( season) [facility] Start: 05-17-2021 section Repeat Bilateral Salpingectomy (Not Applicable) [facility] Work Phone: Start: 03-22-2021 Iv infusion hydration each additional hour HYDRATE IV INFUSION ADD-ON [facility] Work Phone: Start: 03-22-2021 Ther proph/dx njx iv push single/1st sbst/drug THER/PROPH/DIAG INJ IV PUSH [facility] Work Phone: Start: 10-27-2019 Urine microalbumin profile DTaP,Tdap,Td Vaccine (7 - Td or Tdap) [facility] Start: 2018 Screening for malignant neoplasm of cervix Cervical Cancer Screening [facility] Start: 08-18-2015 Anxiety Screening Anxiety Screening [facility] Start: 08-18-2015 Depression Screening Depression Screening [facility] Start: 08-18-2015 Hepatitis C screening Hepatitis C Screening [facility] Start: 08-18-2015 HIV screening HIV Screening [facility] Start: 2012 HPV Vaccine (1 - 3-dose series) HPV Vaccine (1 - 3-dose series) [facility] Start: 08-18-2011 Peds To Adult Transition Annual Assessment Peds To Adult Transition Annual Assessment [facility] Start: 2009 Peds To Adult Transition Initial Discussion Peds To Adult Transition Initial Discussion [facility] Patient Education [facility] Work Phone: Patient referral [facility] Work Phone: Payers Date Payer Category Payer Self-pay [id number] 2024 Unknown [id number] 2022 Medicaid [employer] [id number] 2022-Present [phone] [address] [place] [address] Medicaid [id number] 2022 Unknown [id number] 2016 Unknown [id number] 1997 Unknown [id number] 1997 Unknown [id number] 1997 Unknown [id number] 1997 Unknown [id number] Unknown [id number] Unknown [id number] Social History Date Type Detail Facility Start: 05-17-2021 End: 07-12-2023 Tobacco smoking status NHIS Unknown if ever smoked [facility] Start: 02-16-2020 None [facility] Start: 1995 Sex Assigned At Female [facility] Start: 10-18-2023 [facility] Start: 10-18-2023 Tobacco use and exposure Smokeless tobacco non-user [facility] Start: 10-18-2023 Alcohol intake Lifetime non-d isaiah (finding) [facility] Start: 10-18-2023 History of Social function [facility] Start: 10-18-2023 Tobacco use panel [facility] Adult Depression Screening Assessment 2 [facility] Start: 1995 Sex Assigned At Not on file C [facility] Functional Status Date Assessment Result Facility 05-17-2021 Functional status Activity Ability Post O p [facility] Work Phone: Mental Status Date Assessment Result Facility 07-12-2023 Cognitive function Awake;Alert;Follows Co mmands [facility] Work Phone: 05-17-2021 Cognitive function Level Of Cons ciousness Awake;Alert;Appropriate;Follow s Commands [facility] Work Phone: Clinical Notes 07-12-2021 to 10-18-2023 Patient InstructionsAgatha Amezcua MD - 10/18/2023 8:38 PM EDT Note Date & Type Note Facility 10-18-2023 Instructions Agatha Amezcua MD - 10/18/2023 8:43 PM EDT Keep appointment with [facility] next Sunday. Take antibiotics as prescribed. To the emergency room if unable to handle secretions or as high fever. TOOTHACHE: Your exam shows that your toothache is probably due to tooth decay and infection. Poor dental care is the main cause of this problem. Swelling and redness around a painful tooth often means you have a dental abscess. Pain medicine and antibiotics can help reduce symptoms, but you will need to see a dentist within the next few days to have your problem properly treated. Fillings or root canal work may be needed to save your tooth. If the problem is severe, your tooth may need to be pulled. Please return here right away if you have a fever over 101F, can t swallow, or develop severe swelling. documented in this encounter [facility] 10-18-2023 Note HNO ID: [id number] Author: AGATHA AMEZCUA MD Service: ? Author Type: Physician Type: Progress Notes Filed: 10/18/2023 20:44 Note Text: SUBJECTIVE: Maria Fernanda Walsh is a 28 year old female here today acutely because of having pain and abscess in the left upper molar. The symptoms started about 3 days ago. The patient is without fever but does have chills. She called [facility] dental and does not have appointment until next Sunday. She was started to go to [facility] to maybe get antibiotics. The patient with pain with swallowing but able to handle secretions. ALLERGIES No Known Allergies History reviewed. No pertinent past medical history. History reviewed. No pertinent surgical history. Social History Tobacco Use Smoking status: Never Smokeless tobacco: Never Vaping Use Vaping Use: Never used Substance Use Topics Alcohol use: Never Drug use: Never Current Outpatient Medications on File Prior to Visit Medication Sig sertraline (ZOLOFT) 100 mg tablet Take 100 mg by mouth once daily. No current facility-administered medications on file prior to visit. ROS: No fever, chills, nausea, vomiting, diarrhea, constipation, shortness of breath, cp, abdominal pain or headache. PHYSICAL EXAMINATION: BP 130/98 Pulse 101 Temp 37.9 ?C (100.2 ?F) Resp 18 Wt 121.1 kg (267 lb) LMP 10/04/2023 (Approximate) SpO2 99% General appearance: Well appearing, alert, in no acute distress, well-hydrated, well nourished. and Obese Skin: Skin color, texture, turgor normal, no suspicious rashes or lesions Head: Normocephalic, no masses, lesions, tenderness or abnormalities Eyes: Anicteric sclera. Pupils are equally round and reactive to light. Extraocular movements are intact. Ears: External ears normal, canals clear, bilateral TM normal Nose/Sinuses: Nares normal, septum midline, mucosa normal, no drainage or sinus tenderness Oropharynx: Lips, mucosa, tongue,. Left upper molar #15 with tenderness to palpation. There is swelling in the periapical area of the #15. Neck: Left neck tenderness to palpation. No significant swelling noted. ASSESSMENT/PLAN: 1. Tooth abscess - ICD9: 522.5, ICD10: K04.7 See AVS - PENICILLIN V POTASSIUM 500 MG TABLET NSAIDs as prescribed Agatha Amezcua MD [facility] 10-18-2023 History of Presen t illness Narrative SUBJECTIVE: Maria Fernanda Walsh is a 28 year old female here today acutely because of having pain and abscess in the left upper molar. The symptoms started about 3 days ago. The patient is without fever but does have chills. She called [facility] dental and does not have appointment until next Sunday. She was started to go to [facility] to maybe get antibiotics. The patient with pain with swallowing but able to handle secretions. ALLERGIES No Known Allergies History reviewed. No pertinent past medical history. History reviewed. No pertinent surgical history. Social History Tobacco Use Smoking status: Never Smokeless tobacco: Never Vaping Use Vaping Use: Never used Substance Use Topics Alcohol use: Never Drug use: Never Current Outpatient Medications on File Prior to Visit Medication Sig sertraline (ZOLOFT) 100 mg tablet Take 100 mg by mouth once daily. No current facility-administered medications on file prior to visit. ROS: No fever, chills, nausea, vomiting, diarrhea, constipation, shortness of breath, cp, abdominal pain or headache. PHYSICAL EXAMINATION: BP 130/98 Pulse 101 Temp 37.9 C (100.2 F) Resp 18 Wt 121.1 kg (267 lb) LMP 10/04/2023 (Approximate) SpO2 99% General appearance: Well appearing, alert, in no acute distress, well-hydrated, well nourished. and Obese Skin: Skin color, texture, turgor normal, no suspicious rashes or lesions Head: Normocephalic, no masses, lesions, tenderness or abnormalities Eyes: Anicteric sclera. Pupils are equally round and reactive to light. Extraocular movements are intact. Ears: External ears normal, canals clear, bilateral TM normal Nose/Sinuses: Nares normal, septum midline, mucosa normal, no drainage or sinus tenderness Oropharynx: Lips, mucosa, tongue,. Left upper molar #15 with tenderness to palpation. There is swelling in the periapical area of the #15. Neck: Left neck tenderness to palpation. No significant swelling noted. ASSESSMENT/PLAN: 1. Tooth abscess - ICD9: 522.5, ICD10: K04.7 See AVS - PENICILLIN V POTASSIUM 500 MG TABLET NSAIDs as prescribed Agatha Amezcua MD documented in this encounter [facility] 07-12-2021 Note [facility] Work Phone: Pap Smear Specimen Adequacy July 12, 2021 4:00pm Comment Satisfactory for evaluation. Endocervical and/or squamous metaplasticcells (endocervical component) are present. Comment on above: Satisfactory for gia luation. Endocervical and/or squamous metaplasticcells (endocervical component) are present. Evaluation + Plan note No data available for this section [facility] Evaluation note Diagnosis Onset Date resolved Migraine headache acute resolved delivery delivered acute Encounter for sterilization acute resolved [facility] Work Phone: Evaluation note* Diagnosis Onset Date Resolution Status delivery delivered acute Encounter for sterilization acute resolved [facility] Work Phone: Evaluation noteNo assessment information available [facility] Work Phone: Evaluation note* Diagnosis Tooth abscess- Primary Periapical abscess without sinus [facility] Additional Instructions Please keep yourself well-hydrated and return to the ER should you have any further concerns [facility] of [facility] Discharge instructions No data available for this section [facility] Progress note No data available for this section [facility] Chief Complaint and Reason for Visit Chief Complaint NAUSEA AND HEADACHE HEADACHE Encounter for observation for suspected exposure t REPEAT C SECTION baby weight check and jaundice difficulites thrush MIGRAINE Reason for Visit Migraine headache delivery delivered Encounter for sterilization Chief Complaint Encounter for observ ation for suspected exposure t REPEAT C SECTION baby weight check and jaundice difficulites thrush MIGRAINE TONSILITIS Reason for Visit delivery de livered Encounter for sterilization Chief Complaint chest pain Advance Directives No Advanced Directives Records Found Advance Directive Response Recorded Date/ Time Advance Directives No August 25 4:57pm Living Will No May 17, 2021 6:33am Power of Architectural Project Manager No May 17 6:33am Advance Directive Response Recorded Date/ Time Advance Directives No August 25 4:57pm Living Will No July 12, 2023 11 :03pm Power of Architectural Project Manager No July 12, 2023 11:03pm Summary Purpose Family History No Family History Records Found Additional Source Comments Goals (unrecognized section and content) Goals may be documented in a n alternate sectionGoals may be documented in an alternate sectionGoals may be documented in an alternate section No data available for this section Care Teams (unrecognized sec tion and content) Team Status: Active Member Role Status Dates No Primary Care Physician Primary Care Provider Active Team Status: Inactive Member Role Status Dates Dr. Efrain Zaidi , DO Emergency Provider Active No Primary Care Physician Primary Care Provider Active INFORMATION SOURCE (unrecogn ized section and content) DATE CREATED AUTHOR 07/24/2023 [facility] ([place]) DATE CREATED AUTHOR AUTHOR'S ORGANIZ ATION 10/21/2023 [facility] DATE CREATED AUTHOR AUTHOR'S ORGANIZ ATION 06/15/2024 [facility] DATE CREATED AUTHOR AUTHOR'S ORGANIZ ATION 07/14/2024 Isidoro Flanagan [facility] DATE CREATED AUTHOR AUTHOR'S ORGANIZ ATION 07/14/2024 [facility] Source Comments (unrecognize d section and content) In the event this informatio n is protected by the Federal Confidentiality of Alcohol and Drug Abuse Patient Records regulations: The Federal rules restrict any use of the information to criminally investigate or prosecute any alcohol or drug abuse patient.[facility] Reason for Visit (unrecogniz ed section and content) Reason Comments Mouth/Lip Problem Has an abscess painx 3 days FOR RECORDS PERTAINING TO PATIENTS WHO ARE OR HAVE BEEN ENROLLED IN A CHEMICAL DEPENDENCY/SUBSTANCEABUSE PROGRAM, SOME INFORMATION MAY BE OMITTED. This clinical summary was aggregated from multiple sources. Caution should be exercised in using it in the provision of clinical care. This summary normalizes information from multiple sources, and as a consequence, information in this document may materially change the coding, format and clinical context of patient data. In addition, data may be omitted in some cases. CLINICAL DECISIONS SHOULD BE BASED ON THE PRIMARY CLINICAL RECORDS. [employer] provides no warranty or guarantee of the accuracy or completeness of information in this document.
[2025-02-24 22:12] LABS: Differential Indicated SCAN CRITERIA MET
[2025-02-24] MEDS: 0.9% Normal Saline (1000mL) 1,000 ML 999 ML IV (22:20)
[2025-02-24 22:26] LABS: Troponin T High Sensitivity < 6 ng/L (<=14)
[2025-02-24 22:32] LABS: D-Dimer Quantitative (DVT/PE) 0.57 FEU/ug/m (0.27-0.49)
[2025-02-24 22:35] LABS: Anion Gap 14 (5-15); BUN 5 mg/dL (4-19); BUN/Creat Ratio 5.0 RATIO (10-20); Calcium,Total 9.3 mg/dL (7.6-11.0); Carbon Dioxide 22.1 mmol/L (21.0-32.0); Chloride 100 mmol/L (98-108); Estimated Creatinine Clearance 130.15 ml/min (50-250); Glucose 108 mg/dL (70-99); Potassium 4.0 mmol/L (3.3-5.1)
--- NOTE | 2025-02-24 22:35 | CT_ITS ---
PROCEDURE: CTA CHEST W/WO CONTRAST 02/24/2025 REASON FOR EXAM: CHEST PAIN, ELEVATED DIMER R/O PE TECHNIQUE: Procedure Code: [id number] Modality: CT Procedure: CTA CHEST W/WO CONTRAST Multiplanar Sagittal and Coronal images were obtained. 3D post processing was performed. CONTRAST: Isovue 370 VOLUME: 100 mL One or more dose reduction techniques were used (e.g., Automated exposure control, adjustment of the mA and/or kV according to patient size, use of iterative reconstruction technique). RADIATION DOSE SUMMARY: DLP: 561.62 mGycm COMPARISON: None. FINDINGS: PULMONARY VESSELS: Suboptimal delayed timing of IV contrast bolus, which limits evaluation of the segmental-subsegmental branches. No central filling defects suspicious for pulmonary arterial emboli identified. Normal caliber main pulmonary trunk. No evidence of right heart strain. LUNGS/PLEURA: Clear. No pneumothorax or pleural effusion. MEDIASTINUM: Unremarkable. No lymphadenopathy. HEART: Normal in size. No pericardial effusion or coronary artery calcification. THORACIC AORTA: Normal. No aneurysm or dissection. UPPER ABDOMEN: No significant abnormality visualized. BONES: Unremarkable. CT/CTA Chest W/WO Contrast IMPRESSION: No acute intrathoracic abnormality. No pulmonary arterial emboli identified, al though the segmental-subsegmental branches are not adequately evaluated due to suboptimal timing of IV contrast bolus. Reading Location: [id number]
[2025-02-24 23:00] VITALS: BP 129/78; PULSE 99; RESP 18; TEMP 37.8; O2SAT 98
[2025-02-25] VITALS: BP 113/71; PULSE 95; RESP 18; TEMP 38.1; O2SAT 97
[2025-02-25 00:29] LABS: Troponin T High Sens 2 HR < 6 ng/L (<=14)
[2025-02-25 00:53] VITALS: BP 117/68; PULSE 96; RESP 18; TEMP 36.9; O2SAT 100
== END 2025-02-25 00:54 | disposition home or self-care (01) ==
PROVIDERS: Emergency Provider Emergency Medicine; Visit Provider Emergency Medicine
DX: J06.9 Acute upper respiratory infection, unspecified (principal); R07.9 Chest pain, unspecified
CPT/HCPCS: 71045; 71275; 80048; 84484; 85025; 85379; 87631; 93005; 96361; 96374; 96376; 99285; Q9967; A4216